=== PATIENT | male | born 1955 | race Caucasian/White ===

== ENCOUNTER → 2016-05-21 | Outpatient (CLI) | payer MEDICAID ==
--- NOTE | 2016-05-21 23:08 | MR ---
EXAMINATION TYPE: MR knee LT wo con DATE OF EXAM: 05/21/2016 6:39 PM COMPARISON: NONE HISTORY: Left knee pain and swelling for 2 - 3weeks TECHNIQUE: Multiplanar, multisequence imaging of the left knee is performed without IV contrast. FINDINGS: There is a pacs-or-fjqrvuiv knee joint effusion. The anterior and posterior cruciate ligaments are in tact. There is subcutaneous edema anterior to the patella and infrapatellar tendon. The collateral li gaments appear intact. There is an oblique tear of the posterior horn medial meniscus extending to the inferior surface. There is increased signal throughout most of the posterior horn of the lateral meniscus related to co mplex tear. There is some thinning of the lateral meniscus. I see no bony destructive process. There is no evidence of a fracture. IMPRESSION: Knee joint effusion. Complex tear of the posterior horn of the lateral meniscus. Oblique tear of the posterior horn medial meniscus. Mild hypertrophic osteoarthritic narrowing of the lateral joint space . No evidence of ligamentous tear. Subcutaneous edema is present anteriorly.
== END | disposition home or self-care (01) ==
LOC: RADMRIMAIN 17:59
PROVIDERS: ATTEND Family Medicine
DX: M23.252 Derangement of posterior horn of lateral meniscus due to old tear or injury, left knee (principal); M23.222 Derangement of posterior horn of medial meniscus due to old tear or injury, left knee; M17.12 Unilateral primary osteoarthritis, left knee

== ENCOUNTER → 2016-06-03 | Outpatient (CLI) | payer MEDICAID ==
--- NOTE | 2016-06-03 15:08 | XR ---
EXAMINATION TYPE: XR chest 2V DATE OF EXAM: 06/03/2016 10:24 AM COMPARISON: Prior chest x-ray 01 August 2015 HISTORY: Pneumoconiosis, asbestos exposure TECHNIQUE: Frontal and lateral views of the chest are obtained. FINDINGS: Calcification along the pleural surface of the left lung base is again noted, there is ass ociated scarring. No evident pneumothorax or pleural effusion. Cardiomediastinal silhouette, pulmonar y vascularity and shravan are stable. There may be a mild spinal curvature. Prominent lung volumes sugge stive of underlying COPD. IMPRESSION: Findings compatible with asbestos related disease.
== END ==
LOC: RADXRMAIN 10:07
PROVIDERS: ATTEND Family Medicine
DX: J61 Pneumoconiosis due to asbestos and other mineral fibers (principal)
CPT/HCPCS: 71020

== ENCOUNTER 2016-10-19 08:17 | Day surgery (SDC) | payer MEDICAID ==
[2016-10-15 11:40] VITALS: BMI 33.2
[~2016-10-19 08:17] MED LIST: LACTATED RINGERS 1,000 ML IV SCH; LIDOCAINE 1% 20 ML VIAL (10MG/ML) FOR IV START INTRADERMA PRN
[2016-10-19 08:30] VITALS: RESP 16; TEMP 97.5
[2016-10-19] MEDS ORDERED: PROPOFOL 10 MG/ML 20 ML VIAL IV ONE (09:21)
--- NOTE | 2016-10-19 10:00 | P.PCN ---
Date of Procedure: 10/19/16 Preoperative Diagnosis: Postoperative Diagnosis: Procedure(s) Performed: Procedures: 1. Esophagogastroduodenoscopy and biopsy. 2. Total colonoscopy. Preoperative diagnosis: Chronic reflux symptoms, family history of colon cancer and personal history of polyps. Postoperative diagnosis: 1. Small sliding hiatal hernia and mild antral gastritis. 2. Colonoscopy within normal limits. Preparation: HalfLytely prep. Sedation: Was provided by anesthesia. Brief clinical history: The patient is a 61-year-old male who is scheduled for this evaluation because of family history of colon cancer in his father and personal history of polyps. The patient has tubular adenoma removed from the sigmoid back in 2008. In addition, the patient has history of chronic reflux. He has no bleeding or other alarm symptoms. Procedure: With the patient on his left lateral decubitus position and after informed consent and adequate sedation, I passed the Olympus-GIF 160 video upper endoscope through the cricopharyngeus down the esophagus. GE junction was around 41 cm from the incisors and there was a small sliding hiatal hernia. The esophagus did not show any obvious erosions, ulcers, strictures or Mayorga 's esophagus. The endoscope was then passed into the stomach which was insufflated with air and inspected in detail including the retroflex view in the cardia. There was minimal mottling and erythema in the antrum but no ulcers or erosions. Pyloric channel, duodenal bulb, post bulbar area and descending duodenum appeared within normal limits. I obtained multiple biopsies from the duodenum, antrum and esophagus then the endoscope was withdrawn and I proceeded with the colonoscopy. Perianal area did not show any fissures or fistulas. There were no masses felt on digital rectal examination. The Olympus CFQ 160L video colonoscope was then inserted in the rectum in the usual fashion and advanced to the cecum. The mucosa appeared healthy. No polyps or tumors were seen or any obvious diverticular disease. I retroflexed the endoscope in the rectum before the endoscope was withdrawn. Low-grade internal hemorrhoids were noted but there was no evidence of bleeding. The patient tolerated the procedure well. Plan: The patient was reassured. Will await biopsy results. He will follow up with you as planned and I recommended repeat colonoscopy in 5 years. Implants: Indications for Procedure: Operative Findings: Description of Procedure:
[2016-10-19 10:10] VITALS: BP 124/77; PULSE 60
== END 2016-10-19 11:06 | disposition home or self-care (01) ==
LOC: ORWHC2ENDO 08:17
DX: K21.0 Gastro-esophageal reflux disease with esophagitis (principal); K29.50 Unspecified chronic gastritis without bleeding; Z12.11 Encounter for screening for malignant neoplasm of colon; Z86.010 Personal history of colon polyps; Z80.0 Family history of malignant neoplasm of digestive organs; K44.9 Diaphragmatic hernia without obstruction or gangrene; K64.8 Other hemorrhoids; J44.9 Chronic obstructive pulmonary disease, unspecified; Z79.51 Long term (current) use of inhaled steroids; Z79.899 Other long term (current) drug therapy
CPT/HCPCS: 88305; 88342; 43239; J2704; G0121

== ENCOUNTER 2016-11-18 19:28 | Inpatient (IN) | payer MEDICAID ==
[2016-11-18] MEDS ORDERED: LEVOFLOXACIN 750 MG TAB PO STA (19:51)
[2016-11-18] MEDS ORDERED: SODIUM CHLORIDE 0.9% 1,000 ML IV STA ×2 (19:51)
[2016-11-18] MEDS ORDERED: methylPREDNISolone SOD SUCCI 125 MG/2 ML VIAL IV STA (19:51)
[2016-11-18] MEDS ORDERED: cefTRIAXone 2,000 MG in SODIUM CHLORIDE 0.9% 100 ML IVPB STA (19:55)
[2016-11-18 20:27] LABS: Basophils % (A) 0 %; CH 30.3; CHCM 34.1; Eosinophils # (A) 0.2 k/uL (0-0.7); Eosinophils % (A) 1 %; HCT 43.9 % (39.0-53.0); HDW 2.25; HGB 15.1 gm/dL (13.0-17.5); Luc # (Auto) 0.13; Luc % (Auto) 1; Lymphocytes # (A) 0.8 k/uL (1.0-4.8); Lymphocytes % (A) 5 %; MCH 30.8 pg (25.0-35.0); MCHC 34.4 g/dL (31.0-37.0); MCV 89.3 fL (80.0-100.0); Mean Platelet Volume 7.6; Monocytes # (A) 0.7 k/uL (0-1.0); Monocytes % (A) 4 %; Neutrophils # (A) 14.7 k/uL (1.3-7.7); Neutrophils % (A) 89 %; RBC 4.91 m/uL (4.30-5.90); RDW 13.7 % (11.5-15.5); WBC 16.5 k/uL (3.8-10.6); WBC (Perox) 15.94
[2016-11-18 20:39] LABS: ALT 30 U/L (21-72); AST 27 U/L (17-59); Alkaline Phosphatase 61 U/L (38-126); Anion Gap 11 mmol/L; Blood Urea Nitrogen 14 mg/dL (9-20); Calcium 9.3 mg/dL (8.4-10.2); Carbon Dioxide 20 mmol/L (22-30); Chloride 104 mmol/L (98-107); Glucose 102 mg/dL (74-99); Non-African American GFR(MDRD) >60 (>60 ml/min/1.73 sqM); Potassium 4.1 mmol/L (3.5-5.1); Sodium 135 mmol/L (137-145); Total Bilirubin 0.6 mg/dL (0.2-1.3); Total Protein 7.5 g/dL (6.3-8.2)
--- NOTE | 2016-11-18 20:39 | XR ---
EXAMINATION TYPE: XR chest 2V DATE OF EXAM: 11/18/2016 COMPARISON: 06/03/2016 HISTORY: Fever TECHNIQUE: Frontal and lateral views of the chest are obtained. FINDINGS: There is some calcified pleural plaque at the left lung base. There is mild linear density in the left lower lobe. Heart size is normal. There is no heart failure. Bony thorax is intact. IMPRESSION: Pleural and pulmonary scarring in the left lower lobe. Calcified pleural plaque. No acut e lung disease. No change compared to old exam. Normal heart.
[2016-11-18 20:56] LABS: Creatine Kinase 90 U/L (55-170)
[2016-11-18 21:09] LABS: Creatine Kinase MB 1.8 ng/mL (0.0-2.4); Troponin I <0.012 ng/mL (0.000-0.034)
--- NOTE | 2016-11-18 21:25 | ED ---
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 he does have a history of COPD denies any chest pain no pleuritic chest pain he has been coughing and has been coughing up some phlegm denies any history of coronary artery disease area denies any headaches no neck stiffness no abdominal pain no frequency urgency dysuria - Related Data Home Medications Medication Instructions Recorded Confirmed Garlic 1 tab PO DAILY 10/12/14 11/18/16 Lansoprazole 30 mg PO DAILY 10/12/14 11/18/16 [place]-3 Fatty Acids [[place]-3] 1,000 mg PO DAILY 10/12/14 11/18/16 Budesonide/Formoterol Fumarate 2 puff INHALATION RT-BID 06/14/15 11/18/16 [Symbicort 80-4.5 Mcg Inhaler] Celecoxib [CeleBREX] 200 mg PO DAILY PRN 10/15/16 11/18/16 L.acidoph,Paracasei, B.lactis 1 cap PO DAILY 11/18/16 11/18/16 [Probiotic] Loratadine [Claritin] 10 mg PO DAILY 11/18/16 11/18/16 Multivitamins, Thera [Multivitamin 1 tab PO DAILY 11/18/16 11/18/16 (formulary)] Allergies Allergy/AdvReac Type Severity Reaction Status Date / Time No Known Allergies Allergy Verified 11/18/16 19:38 Review of Systems ROS Statement: Those systems with pertinent positive or pertinent negative responses have been documented in the HPI. ROS Other: All systems not noted in ROS Statement are negative. Past Medical History Past Medical History: COPD, GERD/Reflux, Osteoarthritis (OA) Additional Past Medical History / Comment(s): NUMEROUS BOWEL OBSTRUCTIONS, ileus , diverticular disease, UTI, asbestoes exposure. HX OF POLYPS History of Any Multi-Drug Resistant Organisms: None Reported Past Surgical History: Back Surgery, Bowel Resection, Cholecystectomy, Orthopedic Surgery, Tonsillectomy Additional Past Surgical History / Comment(s): COLONOSCOPY, EGD, BOWEL RESECTIONS IN 2013- LYSIS OF ADHESIONS-05/09/14, had spinal stenosis, had fusion done, R knee arthroscopy for torn meniscus. Past Anesthesia/Blood Transfusion Reactions: No Reported Reaction Past Psychological History: No Psychological Hx Reported Smoking Status: Former smoker - Past Family History Father Family Medical History: Cancer Additional Family Medical History / Comment(s): at age 64- colon cancer Mother Family Medical History: Hyperlipidemia, Hypertension Additional Family Medical History / Comment(s): Mother at age 78 General Exam - General Exam Comments Initial Comments: General: The patient is awake and alert, in no distress, and does not appear acutely ill. Skin: Skin is warm and dry and no rashes or lesions are noted. Eye: Pupils are equal, round and reactive to light, extra-ocular movements are intact; there is normal conjunctiva bilaterally. Ears, nose, mouth and throat: There are moist mucous membranes and no oral lesions. Neck: The neck is supple, there is no tenderness or JVD. Cardiovascular: There is a regular rate and rhythm. No murmur, rub or gallop is appreciated. Respiratory: To auscultation bilateral, exam consistent with her typical COPD Gastrointestinal: Tender over the right flank area Back: There is no tenderness to palpation in the midline. There is no obvious deformity. Musculoskeletal: Normal ROM, no tenderness, There is no pedal edema. There is no calf tenderness or swelling. No cords were appreciated. Neurological: CN II-XII intact, Cranial nerves III through XII are intact. There are no obvious motor or sensory deficits. Coordination appears grossly intact. Speech is normal. Psychiatric: Cooperative, appropriate mood & affect, normal judgment. Limitations: no limitations Course Vital Signs 11/18/16 11/18/16 19:35 21:08 Temperature 101.6 F H 100.8 F H Pulse Rate 109 H 109 H Respiratory 20 Rate Blood Pressure 125/76 O2 Sat by Pulse 96 95 Oximetry EKG is a sinus tachycardia heart rate is 108 KS interval is 170 QRS duration is 05/17/2011 QT/QTc is 326/436 review of this EKG does not reveal any ST elevation or ST depression - Reevaluation(s) Reevaluation #1: 11/18/16 22:33 Mitch is reassessed at 10:20 PM, he still has headache and neck does not feel well enough to go home there is a question of 400 pneumonia or sepsis history bit tachycardic and can admit him , will continue the antibiotics till blood culture and urine culture is 1 Medical Decision Making - Lab Data Result diagrams: 11/18/16 20:15 11/18/16 20:15 Lab Results 11/18/16 11/18/16 11/18/16 Range/Units 20:15 20:15 20:15 WBC 16.5 H (3.8-10.6) k/uL RBC 4.91 (4.30-5.90) m/uL Hgb 15.1 (13.0-17.5) gm/dL Hct 43.9 (39.0-53.0) % MCV 89.3 (80.0-100.0) fL MCH 30.8 (25.0-35.0) pg MCHC 34.4 (31.0-37.0) g/dL RDW 13.7 (11.5-15.5) % Plt Count 311 (150-450) k/uL Neutrophils % 89 % Lymphocytes % 5 % Monocytes % 4 % Eosinophils % 1 % Basophils % 0 % Neutrophils # 14.7 H (1.3-7.7) k/uL Lymphocytes # 0.8 L (1.0-4.8) k/uL Monocytes # 0.7 (0-1.0) k/uL Eosinophils # 0.2 (0-0.7) k/uL Basophils # 0.0 (0-0.2) k/uL PT (9.0-12.0) sec INR (<1.1) APTT (22.0-30.0) sec D-Dimer (<0.60) mg/L FEU Sodium 135 L (137-145) mmol/L Potassium 4.1 (3.5-5.1) mmol/L Chloride 104 (98-107) mmol/L Carbon Dioxide 20 L (22-30) mmol/L Anion Gap 11 mmol/L BUN 14 (9-20) mg/dL Creatinine 0.92 (0.66-1.25) mg/dL Est GFR (MDRD) Af Amer >60 (>60 ml/min/1.73 sqM) Est GFR (MDRD) Non-Af >60 (>60 ml/min/1.73 sqM) Glucose 102 H (74-99) mg/dL Calcium 9.3 (8.4-10.2) mg/dL Total Bilirubin 0.6 (0.2-1.3) mg/dL AST 27 (17-59) U/L ALT 30 (21-72) U/L Alkaline Phosphatase 61 (38-126) U/L Total Creatine Kinase 90 (55-170) U/L CK-MB (CK-2) 1.8 (0.0-2.4) ng/mL CK-MB (CK-2) Rel Index 2.0 Troponin I <0.012 (0.000-0.034) ng/mL NT-Pro-B Natriuret Pep pg/mL Total Protein 7.5 (6.3-8.2) g/dL Albumin 4.4 (3.5-5.0) g/dL Urine Color Urine Appearance (Clear) Urine pH (5.0-8.0) Ur Specific [place] (1.001-1.035) Urine Protein (Negative) Urine Glucose (UA) (Negative) Urine Ketones (Negative) Urine Blood (Negative) Urine Nitrite (Negative) Urine Bilirubin (Negative) Urine Urobilinogen (<2.0) mg/dL Ur Leukocyte Esterase (Negative) Urine RBC (0-5) /hpf Urine Mucus (None) /hpf 11/18/16 11/18/16 11/18/16 Range/Units 20:15 21:35 21:44 WBC (3.8-10.6) k/uL RBC (4.30-5.90) m/uL Hgb (13.0-17.5) gm/dL Hct (39.0-53.0) % MCV (80.0-100.0) fL MCH (25.0-35.0) pg MCHC (31.0-37.0) g/dL RDW (11.5-15.5) % Plt Count (150-450) k/uL Neutrophils % % Lymphocytes % % Monocytes % % Eosinophils % % Basophils % % Neutrophils # (1.3-7.7) k/uL Lymphocytes # (1.0-4.8) k/uL Monocytes # (0-1.0) k/uL Eosinophils # (0-0.7) k/uL Basophils # (0-0.2) k/uL PT 10.4 (9.0-12.0) sec INR 1.0 (<1.1) APTT 25.8 (22.0-30.0) sec D-Dimer 0.75 H (<0.60) mg/L FEU Sodium (137-145) mmol/L Potassium (3.5-5.1) mmol/L Chloride (98-107) mmol/L Carbon Dioxide (22-30) mmol/L Anion Gap mmol/L BUN (9-20) mg/dL Creatinine (0.66-1.25) mg/dL Est GFR (MDRD) Af Amer (>60 ml/min/1.73 sqM) Est GFR (MDRD) Non-Af (>60 ml/min/1.73 sqM) Glucose (74-99) mg/dL Calcium (8.4-10.2) mg/dL Total Bilirubin (0.2-1.3) mg/dL AST (17-59) U/L ALT (21-72) U/L Alkaline Phosphatase (38-126) U/L Total Creatine Kinase (55-170) U/L CK-MB (CK-2) (0.0-2.4) ng/mL CK-MB (CK-2) Rel Index Troponin I (0.000-0.034) ng/mL NT-Pro-B Natriuret Pep 90 pg/mL Total Protein (6.3-8.2) g/dL Albumin (3.5-5.0) g/dL Urine Color Light Yellow Urine Appearance Clear (Clear) Urine pH 5.0 (5.0-8.0) Ur Specific [place] 1.008 (1.001-1.035) Urine Protein Negative (Negative) Urine Glucose (UA) Negative (Negative) Urine Ketones Negative (Negative) Urine Blood Trace H (Negative) Urine Nitrite Negative (Negative) Urine Bilirubin Negative (Negative) Urine Urobilinogen <2.0 (<2.0) mg/dL Ur Leukocyte Esterase Negative (Negative) Urine RBC <1 (0-5) /hpf Urine Mucus Rare H (None) /hpf Disposition Clinical Impression: Fever, Dyspnea, Right flank pain, Sepsis Disposition: ADMITTED IP TO THIS [facility] Condition: Good Referrals: Uriel Pendleton MD [Primary Care Provider] - 1-2 days
[2016-11-18] MEDS ORDERED: KETOROLAC 30 MG/ML 1 ML VIAL IVP STA (22:02)
[2016-11-18 22:03] LABS: Appearance,Urine Clear (Clear); Bilirubin,Urine Negative (Negative); Glucose,Urine (UA) Negative (Negative); Ketones,Urine Negative (Negative); Leukocyte Esterase,Urine Negative (Negative); Mucus,Urine Rare /hpf; Nitrite,Urine Negative (Negative); Particle Count 719; Protein,Urine Negative (Negative); RBC,Urine <1 /hpf (0-5); Specific Gravity,Urine 1.008 (1.001-1.035); UA Billing (MACRO vs. MICRO) MICRO; Urobilinogen,Urine <2.0 mg/dL (<2.0)
[2016-11-18 22:07] LABS: Partial Thromboplastin Time 25.8 sec (22.0-30.0); Prothrombin Time 10.4 sec (9.0-12.0)
[2016-11-18] MEDS ORDERED: RX INFO: IV CONTRAST WAS GIVEN 1 EACH MISC MISCELLANE PRN (22:36)
--- NOTE | 2016-11-18 23:46 | CT ---
EXAM: CT Angiography Chest With Intravenous Contrast CLINICAL HISTORY: Reason: Pain TECHNIQUE: Axial computed tomographic angiography images of the chest with intravenous contrast using pulmonary embolism protocol. CTDI is 43.80 mGy and DLP is 405.80 mGy-cm. This CT exam was performed using one or more of the following dose reduction techniques: automated exposure control, adjustment of the mA and/or kV according to patient size, and/or use of iterative reconstruction technique. MIP reconstructed images were created and reviewed. COMPARISON: 06/14/[address] FINDINGS: Limitations: Note somewhat suboptimal contrast bolus, with similar degree of opacity within the pulmonary and systemic arterial systems. Pulmonary arteries: No definite evidence of pulmonary embolism including no central or segmental PE seen. Aorta: No acute findings. No thoracic aortic aneurysm. Lungs: Stable left-sided pleural calcifications, and underlying linear opacities suggesting atelectasis and scarring seen at the left base. There are a few small peripheral blebs in the apices. Tiny calcified granulomata are seen at the right base. Pleural space: See above. Heart: Coronary atherosclerotic calcification. No significant pericardial effusion. Mediastinum: Small hiatal hernia. Bones/joints: Degenerative changes and slight rightward curvature of the thoracic spine. Soft tissues: Unremarkable. Lymph nodes: Scattered small mediastinal and bilateral hilar nodes, including slightly prominent right hilar nodes measuring up to 13 mm in short axis diameter on image 74. Gallbladder and bile ducts: Prior cholecystectomy. IMPRESSION: 1. No definite evidence of pulmonary embolism or acute process seen within the chest. 2. Slightly prominent right hilar node or nodes, nonspecific. If no priors for comparison, at the minimum would recommend repeat exam within 2-3 months to reevaluate. 3. There is again left-sided pleural calcification and underlying scarring, stable, perhaps as the result of prior hemo- or pyothorax. 4. Atherosclerotic disease includes coronary artery calcifications.
[2016-11-19] MEDS ORDERED: SODIUM CHLORIDE 0.9% 1,000 ML IV ONE (00:11)
[2016-11-19] MEDS ORDERED: MELOXICAM 7.5 MG TAB PO PRN (00:13)
[2016-11-19 01:11] VITALS: BMI 32.8
[2016-11-19] MEDS: SYMBICORT 80-4.5 MCG INHALER INHALATION SCH ×2 (07:30→20:16)
[2016-11-19] MEDS: PANTOPRAZOLE 40 MG TABLET PO SCH (07:59)
[2016-11-19] MEDS: LORATADINE 10 MG TAB PO SCH (07:59)
[2016-11-19 14:19] LABS: Basophils % (A) 0 %; CH 29.7; CHCM 33.3; Eosinophils % (A) 0 %; HCT 41.4 % (39.0-53.0); HDW 2.29; HGB 14.2 gm/dL (13.0-17.5); Luc # (Auto) 0.17; Luc % (Auto) 1; Lymphocytes % (A) 6 %; MCH 30.8 pg (25.0-35.0); MCHC 34.3 g/dL (31.0-37.0); MCV 89.8 fL (80.0-100.0); Mean Platelet Volume 7.6; Monocytes # (A) 0.9 k/uL (0-1.0); Monocytes % (A) 6 %; Neutrophils # (A) 14.8 k/uL (1.3-7.7); Neutrophils % (A) 87 %; RBC 4.61 m/uL (4.30-5.90); RDW 13.7 % (11.5-15.5); WBC 16.9 k/uL (3.8-10.6); WBC (Perox) 16.92
[2016-11-19 14:28] LABS: Anion Gap 12 mmol/L; Blood Urea Nitrogen 13 mg/dL (9-20); Calcium 9.3 mg/dL (8.4-10.2); Carbon Dioxide 19 mmol/L (22-30); Chloride 111 mmol/L (98-107); Glucose 112 mg/dL (74-99); Non-African American GFR(MDRD) >60 (>60 ml/min/1.73 sqM); Potassium 4.4 mmol/L (3.5-5.1); Sodium 142 mmol/L (137-145)
[2016-11-19 15:20] LABS: Appearance,Urine Clear (Clear); Bilirubin,Urine Negative (Negative); Glucose,Urine (UA) Negative (Negative); Ketones,Urine Negative (Negative); Leukocyte Esterase,Urine Negative (Negative); Nitrite,Urine Negative (Negative); Protein,Urine Negative (Negative); Specific Gravity,Urine 1.003 (1.001-1.035); UA Billing (MACRO vs. MICRO) CHEM; Urobilinogen,Urine <2.0 mg/dL (<2.0)
[2016-11-19] MEDS: SODIUM CHLORIDE 0.9% 1,000 ML IV SCH ×2 (16:16→21:38)
[2016-11-19] MEDS ORDERED: LEVOFLOXACIN 750 MG TAB PO SCH (21:00)
[2016-11-19] MEDS ORDERED: LEVOFLOXACIN 750MG-D5W PMX 750 MG in DEXTROSE/WATER 1 150ML.BAG IVPB SCH (21:00)
[2016-11-20] MEDS: SODIUM CHLORIDE 0.9% 1,000 ML IV SCH (04:31)
[2016-11-20 07:24] VITALS: BP 112/69; PULSE 66; RESP 18; TEMP 96.5
[2016-11-20] MEDS: SYMBICORT 80-4.5 MCG INHALER INHALATION SCH (07:45)
[2016-11-20 08:17] LABS: Basophils % (A) 0 %; CH 29.4; CHCM 32.6; Eosinophils # (A) 0.1 k/uL (0-0.7); Eosinophils % (A) 1 %; HCT 42.9 % (39.0-53.0); HDW 2.38; HGB 14.1 gm/dL (13.0-17.5); Luc # (Auto) 0.21; Luc % (Auto) 2; Lymphocytes # (A) 1.7 k/uL (1.0-4.8); Lymphocytes % (A) 16 %; MCH 29.8 pg (25.0-35.0); MCHC 32.8 g/dL (31.0-37.0); MCV 90.7 fL (80.0-100.0); Mean Platelet Volume 7.3; Monocytes # (A) 0.7 k/uL (0-1.0); Monocytes % (A) 7 %; Neutrophils # (A) 7.9 k/uL (1.3-7.7); Neutrophils % (A) 74 %; RBC 4.73 m/uL (4.30-5.90); RDW 13.8 % (11.5-15.5); WBC 10.7 k/uL (3.8-10.6); WBC (Perox) 10.99
[2016-11-20 08:25] LABS: Anion Gap 9 mmol/L; Blood Urea Nitrogen 13 mg/dL (9-20); Calcium 8.9 mg/dL (8.4-10.2); Carbon Dioxide 22 mmol/L (22-30); Chloride 111 mmol/L (98-107); Glucose 83 mg/dL (74-99); Non-African American GFR(MDRD) >60 (>60 ml/min/1.73 sqM); Potassium 4.3 mmol/L (3.5-5.1); Sodium 142 mmol/L (137-145)
[2016-11-20] MEDS: LORATADINE 10 MG TAB PO SCH (10:04)
[2016-11-20] MEDS: PANTOPRAZOLE 40 MG TABLET PO SCH (10:05)
--- NOTE | 2016-11-20 12:11 | HP ---
DATE OF SERVICE: 11/19/2016 The chief complaints are shortness of breath as well as nausea and chills. HISTORY OF PRESENT ILLNESS: This is a 61-year-old gentleman with a past medical history of multiple medical problems including COPD, history of GERD, history of numerous bowel obstructions , history of back surgery being followed by Dr. Uriel Pendleton. The patient has been having chills, short of breath, tired and weak. The patient came to [facility] for further evaluation. The white count is elevated. Sepsis is suspected. Cultures were obtained. Broad spectrum antibiotic is initiated. There is no history of headache, loss of consciousness,. PAST MEDICAL HISTORY: History of COPD, GERD, DJD, numerous bowel obstructions. Medications prior to admission: 1. [place] 3 one thousand daily. 2. Multivitamin 1 p.o. daily. 3. Claritin 10 mg daily. 4. Lansoprazole 30 mg daily. 5. Probiotic. 6. Celebrex 200 mg daily p.r.n. 7. Symbicort 80/4.5 two puffs b.i.d. Allergies are none. FAMILY HISTORY: History of cancer. SOCIAL HISTORY: Previous history of smoking, no history of alcohol intake. REVIEW OF SYSTEMS: ENT: No diminished hearing, diminished vision. CARDIOVASCULAR: No angina, no palpitation. RESPIRATORY: No cough. GI: No nausea. : No dysuria. NERVOUS SYSTEM: No numbness or weakness. ALLERGY/IMMUNOLOGY: No asthma or hayfever. MUSCULOSKELETAL: As mentioned earlier. DERMATOLOGY: Negative. ENDOCRINE: No history of diabetes or hypothyroidism. CONSTITUTIONAL: As mentioned earlier. RHEUMATOLOGY: Negative. PSYCHIATRY: As mentioned earlier. PHYSICAL EXAM: Patient is alert and oriented x3. Pulse is 71, blood pressure 104/71, respirations 16, temperature 97.3, pulse ox 94% on room air. HEENT: Conjunctivae normal. NECK: No jugular venous distension. CARDIOVASCULAR: S1, S2, muffled. RESPIRATORY: Breath sounds diminished at the bases, bilateral scattered rhonchi , no crackles. ABDOMEN: Soft, nontender. LEGS: No edema, no swelling. NERVOUS SYSTEM: No focal deficits. Labs are WBC 16.5, hemoglobin is 15.1, sodium 135. ASSESSMENT: 1. Chronic obstructive pulmonary disease acute exacerbation with acute purulent tracheobronchitis with rule out sepsis. 2. Increased WBC. 3. Hyponatremia. RECOMMENDATION: In this 61-year-old gentleman who presented with multiple medical problems, will monitor the patient closely. Will continue broad- spectrum antibiotics and also I would recommend blood cultures, bronchodilators. Resume the home medications. Prognosis guarded, further recommendations to follow. See orders for further details. Will start plasma lactic acid as well. MTDD
--- NOTE | 2016-11-22 14:14 | DS ---
FINAL DIAGNOSES: 1. Chronic obstructive pulmonary disease acute exacerbation, acute purulent tracheobronchitis. 2. Sepsis ruled out. 3. Increased WBC. 4. Hyponatremia. DISCHARGE DISPOSITION: The patient is being discharged in stable condition with guarded prognosis. HISTORY OF PRESENT ILLNESS: This 61 year old gentleman with past medical history of multiple medical problems presented with shortness of breath and chills. The patient on empiric antibiotics, improved significantly. White count elevated initially 16.9, improved to 10.7. Cultures are negative so far. On examination, vital signs are stable. Cardiovascular: S1, S2. Respiratory: A few rhonchi. Nervous system: No focal deficits. DISCHARGE ADVICE AND MEDICATIONS: 1. Discharge diet is cardiac. 2. Activity limited until follow up. 3. Follow up with Dr. Uriel Pendleton in two to three days. 4. Symbicort two puffs b.i.d. 5. Celebrex 200 mg daily. 6. Garlic daily. 7. Probiotic daily. 8. Lansoprazole 30 mg po daily. 9. Levaquin 750 po daily for four days. 10. Claritin 10 mg daily. 11. Multivitamins one po daily. 12. [place]-3 fatty acids daily. Once again, the patient is being discharged in stable condition with guarded prognosis. MTDD
== END 2016-11-20 13:59 | disposition home or self-care (01) | DRG 191 ==
LOC: EC 19:28 → 4MS4W 11-19 00:11 → OBSVTOIN 11-19 15:01
PROVIDERS: ADMIT Hospitalist; ATTEND Hospitalist
DX: J44.0 Chronic obstructive pulmonary disease with (acute) lower respiratory infection (principal); E87.1 Hypo-osmolality and hyponatremia; J20.9 Acute bronchitis, unspecified; J44.1 Chronic obstructive pulmonary disease with (acute) exacerbation; K21.9 Gastro-esophageal reflux disease without esophagitis; M19.91 Primary osteoarthritis, unspecified site; Z87.891 Personal history of nicotine dependence; Z79.51 Long term (current) use of inhaled steroids; Z79.899 Other long term (current) drug therapy
CPT/HCPCS: 36415; 71020; 71275; 80048; 80053; 81001; 81003; 82550; 82553; 83605; 83880; 84484; 85025; 85379; 85610; 85730; 87040; 87070; 87086; 93005; 94640; 96361; 96365; 96375; 99285

== ENCOUNTER → 2016-11-23 | Outpatient (CLI) | payer MEDICAID ==
[2016-11-23 11:57] LABS: Anion Gap 10 mmol/L; Blood Urea Nitrogen 17 mg/dL (9-20); Calcium 9.3 mg/dL (8.4-10.2); Carbon Dioxide 23 mmol/L (22-30); Chloride 105 mmol/L (98-107); Glucose 92 mg/dL (74-99); Non-African American GFR(MDRD) >60 (>60 ml/min/1.73 sqM); Potassium 4.4 mmol/L (3.5-5.1); Sodium 138 mmol/L (137-145)
[2016-11-23 12:03] LABS: Basophils % (A) 0 %; CH 29.4; CHCM 33.4; Eosinophils # (A) 0.2 k/uL (0-0.7); Eosinophils % (A) 3 %; HDW 2.37; HGB 14.9 gm/dL (13.0-17.5); Luc # (Auto) 0.29; Luc % (Auto) 3; Lymphocytes # (A) 2.4 k/uL (1.0-4.8); Lymphocytes % (A) 28 %; MCH 30.7 pg (25.0-35.0); MCHC 34.7 g/dL (31.0-37.0); MCV 88.6 fL (80.0-100.0); Mean Platelet Volume 7.6; Monocytes # (A) 0.6 k/uL (0-1.0); Monocytes % (A) 6 %; Neutrophils # (A) 5.2 k/uL (1.3-7.7); Neutrophils % (A) 60 %; RBC 4.86 m/uL (4.30-5.90); RDW 13.3 % (11.5-15.5); WBC 8.8 k/uL (3.8-10.6); WBC (Perox) 8.71
== END | disposition home or self-care (01) ==
LOC: LABWHC1 10:55
PROVIDERS: ATTEND Hospitalist
DX: D72.829 Elevated white blood cell count, unspecified (principal)
CPT/HCPCS: 36415; 80048; 85025

== ENCOUNTER → 2017-05-19 | Outpatient (CLI) | payer MEDICAID ==
--- NOTE | 2017-05-19 12:20 | XR ---
EXAMINATION TYPE: XR chest 2V DATE OF EXAM: 05/19/2017 COMPARISON: 11/18/2016 TECHNIQUE: PA and lateral views submitted. HISTORY: difficulty breathing FINDINGS: There is some calcified pleural plaque at the left lung base. There is mild linear density in the lef t lower lobe. Heart size is normal. There is no heart failure. Bony thorax is intact. Arthropathy of the shoulders and degenerative changes of the spine. IMPRESSION: Pleural and pulmonary scarring in the left lower lobe. Calcified pleural plaque. Correlate for asbest osis related disease. No change compared to old exam.
== END | disposition home or self-care (01) ==
LOC: RADXRMAIN 11:57
PROVIDERS: ATTEND Family Medicine
DX: J92.0 Pleural plaque with presence of asbestos (principal); J98.4 Other disorders of lung
CPT/HCPCS: 71046

== ENCOUNTER 2017-06-29 09:50 | Inpatient (IN) | payer MEDICAID ==
[2017-06-21 10:45] VITALS: BMI 32.0
[~2017-06-29 09:50] MED LIST changes: +ACETAMINOPHEN TAB 500 MG TAB PO ONE; +DEXAMETHASONE SOD PHOSPHATE 10 MG/ML 1 ML VIAL IV ONE; -LACTATED RINGERS 1,000 ML IV SCH; -LIDOCAINE 1% 20 ML VIAL (10MG/ML) FOR IV START INTRADERMA PRN; +MELOXICAM 7.5 MG TAB PO ONE; +MIDAZOLAM 2 MG/2 ML VIAL IV PRN; +MORPHINE SULFATE 4 MG/ML SYRINGE IV PRN; +ONDANSETRON 4 MG/2 ML VIAL IVP ONE; +ROPIVACAINE 246.25 MG, EPINEPHrine 0.5 MG, KETOROLAC 30 MG, cloNIDine HCL/PF 80 MCG, WA... MISCELLANE ONE; +SCOPOLAMINE 1.5MG/72HR PATCH TRANSDERM ONE; +TRANEXAMIC ACID 1,000 MG in SODIUM CHLORIDE 0.9% 50 ML IVPB ONE; +ceFAZolin IN SWFI 2 GM/20 ML SYRINGE IVP ONE
[2017-06-29] MEDS ORDERED: LIDOCAINE 1% 20 ML VIAL (10MG/ML) FOR IV START INTRADERMA ONE (12:35)
[2017-06-29] MEDS: LACTATED RINGERS 1,000 ML IV SCH (12:45)
[2017-06-29] MEDS ORDERED: ROPIVACAINE 1,100 MG, SODIUM CHLORIDE 0.9% 330 ML MISCELLANE PRN ×2 (13:52)
--- NOTE | 2017-06-29 13:53 | P.ONQ ---
Anesthesiology Proc Note - PNB - Peripheral Nerve Block Performed Left Adductor Canal Indication: Acute Post-Operative Pain, Requested by physician (Osito Palmer) Sedation Type: Sedate with meaningful contact maintained Preparation: Sterile Dressing Position: Supine Catheter: Indwelling Needle Types: Other (see comment) (Jey) Needle Size: 100mm (4") Needle Gauge: 18 Technique: Ultrasound Injectate: 0.5% Ropivacaine (see comment for volume) (20cc) Blood Aspirated: No Pain Paresthesia on Injection Noted: No Resistance on Injection: Normal Events: Uneventful and Well Tolerated
[2017-06-29] MEDS ORDERED: fentaNYL (PF) 50 MCG/ML 2 ML AMP ONE (14:16)
[2017-06-29] MEDS ORDERED: SUCCINYLCHOLINE CHLORIDE 100 MG/5 ML SYR IV ONE (14:16)
[2017-06-29] MEDS ORDERED: SODIUM CHLORIDE 0.9% 100 ML BAG ONE (14:16)
[2017-06-29] MEDS ORDERED: HYDROmorphone (PF) 1 MG/ML ONE (14:16)
[2017-06-29] MEDS ORDERED: ROPIVACAINE 5 MG/ML 30 ML VIAL ONE (14:16)
[2017-06-29] MEDS ORDERED: TRANEXAMIC ACID 1,000 MG/10 ML VIAL ONE (14:16)
[2017-06-29] MEDS ORDERED: LIDOCAINE 2%-EPI 1:100,000 20 ML VIAL ONE (14:16)
[2017-06-29] MEDS ORDERED: KETAMINE 10 MG/ML 20 ML VIAL ONE (14:16)
[2017-06-29] MEDS ORDERED: PROPOFOL 10 MG/ML 20 ML VIAL IV ONE (14:16)
[2017-06-29] MEDS ORDERED: MIDAZOLAM 2 MG/2 ML VIAL ONE (14:16)
[2017-06-29] MEDS ORDERED: ceFAZolin 1,000 MG in SODIUM CHLORIDE 0.9% 1,000 ML IRRIGATION ONE ×4 (15:11)
[2017-06-29] MEDS ORDERED: LACTATED RINGERS 1,000 ML IV ONE (15:55)
--- NOTE | 2017-06-29 15:55 | P.OP ---
Date of Procedure: 06/29/17 Preoperative Diagnosis: Severe osteoarthritis left knee Postoperative Diagnosis: Severe osteoarthritis left knee Procedure(s) Performed: Left total knee arthroplasty Implants: Rodriguez and Nephew Oxinium femoral component size 7, left Rodriguez & Nephew Darlyn II left nonporous tibial baseplate size 6 Rodriguez & Nephew size 11 mm Legion XLPE high flexion articular insert, size 5-6 Rodriguez & Nephew Darlyn II resurfacing patellar component, 35 mm All components were cemented using Nena bone cement.. The articulation is Oxinium on polyethylene. Anesthesia: GETA Surgeon: Osito Palmer Manager Agricultural #1: Sushma Peres Estimated Blood Loss (ml): 50 Pathology: other (Bone and cartilage) Condition: stable Disposition: PACU Indications for Procedure: After failure of conservative treatment we discussed the surgical and nonsurgical treatment options at length. Patient wishes to proceed with a total knee arthroplasty. Complications specific to this procedure were discussed at length, including but not limited to infection, bleeding, stiffness , and nerve injury. Patient is aware of all these complications and informed consent was obtained Operative Findings: The operative findings are consistent with severe osteoarthritis of the left knee Description of Procedure: Patient was seen in the preoperative area consent was reviewed and operative site was marked with a skin marker. An adductor canal pain catheter was placed by anesthesia in the preoperative area. Patient was then brought to the operating room and given preoperative antibiotics intravenously. A spinal anesthetic was attempted by the anesthesia department, but was unsuccessful. A general anesthetic was then administered.. A tourniquet was placed on the upper thigh and the lower extremity was prepped and draped in usual sterile fashion. A gram of transexamic acid was given. A universal timeout was then performed which confirmed the patient's name, surgical site, ALLERGIES, and consent. The lower extremity was then exsanguinated and tourniquet was inflated to 250 mmHg. A standard and anterior midline approach to the knee was performed. The skin and subcutaneous tissue was dissected down to the patellar tendon. A medial parapatellar arthrotomy was then performed. The knee was then extended, the patellar was everted, and the knee was again flexed. Anterior horns of both menisci were excised, and a release was performed to the posterior medial aspect of the knee. On gross visual inspection, there was complete loss of articular cartilage in the medial and patellofemoral joint spaces. There was also significant cartilage damage in the lateral compartment. There were multiple periarticular osteophytes which were then removed with a Ronguer. The femoral canal was then opened with the appropriate drill, and the intramedullary femoral cutting guide was then placed and set for 4 of valgus. The distal femoral cutting block was then pinned in place, and the distal femur was then cut. The cutting block was then removed and the cut was checked for flatness. Next, the sizing guide was then placed and set for 3 external rotation based off of the epicondylar axis and Whitesides line. After the femur was sized, the appropriate 4-in-1 cutting block was then pinned in place. The anterior condyles were cut without notching. The posterior and chamfer cuts were performed while protecting the collateral ligaments. The cutting block was then removed, and the femoral canal was plugged with autologous bone. Attention was then directed to the tibia. The remaining ACL was removed with a Ronguer, and the tibia was then gently subluxed forward with a large bent knee retractor. Any remaining menisci was excised. The posterior lateral corner was cauterized in order to cauterize the lateral geniculate artery. The extra medullary tibial cutting guide was then placed, set for the appropriate rotation , slope, and depth of resection. The proximal tibia cutting guide was then pinned in place. Proximal tibia was then cut and sized. Next trials were then placed with the appropriate-sized insert. The knee was able to fully extend and flex to 130 and was stable throughout all range of motion. The knee was then extended, patella everted. Patella was then measured, and then using an osteotomy guide, the patella was cut at the appropriate level. The patella was then measured and drilled and the patella trial was then placed. The knee was then taken through range of motion with the patella trial and the patella tracked normally. The knee was then extended patella trial was then removed and the patella was everted. Knee was then flexed and lug holes were drilled through the femoral trial and the femoral trial was then removed. The tibial was then exposed, and the tibial broach guide was then pinned in place after it was set for the appropriate rotation to allow for the most coverage without overhang. The tibia was then reamed and broached. The cut surfaces of bone were then irrigated with pulsatile lavage. The posterior structures were injected with the ropivacaine solution. The components were then opened, the cement was mixed, and the components were then cemented in place. The cement was allowed to harden with the knee in full extension. While the cement was hardening, the remaining soft tissues were then injected with a ropivacaine solution, which consisted of 246.25 mg of ropivacaine, 0.5 mg of epinephrine, 30 mg of Toradol, 80 g of clonidine, and 48.45 mL of sterile water, for a total of 100 mL of fluid injected. After the cemented hardened. The tourniquet was released, and hemostasis was obtained. A second gram of transexamic acid was given. The knee was again irrigated. The knee was again taken through range of motion and found to be stable throughout all range of motion of 0-130, and the patella tracked normally. The fascia was then closed with #2 strata fix suture. The subcutaneous tissue was closed with 3-0 Vicryl and 3-0 strata fix. Dermabond glue was used for the skin and placed with the knee in flexion. The patient was placed in a sterile silver dressing. Patient was then transferred to recovery room in stable condition. The retail administrative assistant EDILSON Werner was required due the complexity surgery and the need for a skilled trading assistant. She assisted in positioning, draping, retraction, and closure of the wound.
[2017-06-29] MEDS ORDERED: HYDROmorphone 0.5 MG/0.5 ML SYRINGE IVP PRN ×2 (16:18)
[2017-06-29] MEDS ORDERED: DIAZEPAM 5 MG TAB PO PRN ×2 (16:18)
[2017-06-29] MEDS ORDERED: MAGNESIUM HYDROXIDE 2,400 MG/10 ML CUP PO PRN (16:18)
[2017-06-29] MEDS ORDERED: NA PHOS,M-B/NA PHOS,DI-BA 133 ML ENEMA RECTAL PRN (16:18)
[2017-06-29] MEDS ORDERED: hydrOXYzine PAMOATE 25 MG CAP PO PRN (16:18)
[2017-06-29] MEDS ORDERED: NALOXONE 0.4 MG/ML 1 ML VIAL IV PRN (16:18)
[2017-06-29] MEDS ORDERED: BISACODYL 10 MG SUPP RECTAL PRN (16:18)
[2017-06-29] MEDS ORDERED: HYDROcodone/APAP 5-325MG 1 EACH TAB PO PRN ×2 (16:18)
[2017-06-29] MEDS ORDERED: ONDANSETRON 4 MG/2 ML VIAL IVP PRN (16:18)
--- NOTE | 2017-06-29 16:44 | XR ---
EXAMINATION TYPE: XR knee limited LT DATE OF EXAM: 06/29/2017 COMPARISON: NONE HISTORY: Surgery TECHNIQUE: 2 views FINDINGS: There is a left knee prosthesis. Components are in anatomic position. I see no complication process. IMPRESSION: No complicating process seen.
[2017-06-29] MEDS: SENNOSIDES-DOCUSATE SODIUM 1 EACH TAB PO SCH (20:40)
[2017-06-29] MEDS: ASPIRIN 325 MG TAB PO SCH (20:40)
[2017-06-30] MEDS: ceFAZolin IN SWFI 2 GM/20 ML SYRINGE IVP SCH ×2 (01:03→05:56)
[2017-06-30] MEDS: SODIUM CHLORIDE 0.9% 1,000 ML IV SCH ×2 (05:55→09:15)
[2017-06-30 07:44] LABS: Basophils % (A) 0 %; Eosinophils # (A) 0.1 k/uL (0-0.7); Eosinophils % (A) 1 %; HCT 40.4 % (39.0-53.0); HGB 11.9 gm/dL (13.0-17.5); Lymphocytes # (A) 1.5 k/uL (1.0-4.8); Lymphocytes % (A) 11 %; MCH 27.9 pg (25.0-35.0); MCHC 29.5 g/dL (31.0-37.0); MCV 94.5 fL (80.0-100.0); Mean Platelet Volume 7.4; Monocytes # (A) 0.9 k/uL (0-1.0); Monocytes % (A) 7 %; Neutrophils # (A) 10.4 k/uL (1.3-7.7); Neutrophils % (A) 80 %; Platelet Count 306 k/uL (150-450); RBC 4.27 m/uL (4.30-5.90); RDW 13.5 % (11.5-15.5); WBC 13.1 k/uL (3.8-10.6)
--- NOTE | 2017-06-30 08:45 | P.DS ---
Providers Date of admission: 06/29/17 11:58 Expected date of discharge: 06/30/17 Attending physician: Osito Palmer Consults: 06/29/17 16:18 Consult Physician Routine Consulting Provider: Uriel Pendleton Consult Reason/Comments: medical management Do you want consulting provider notified?: Yes Primary care physician: Uriel Pendleton - Discharge Diagnosis(es) (1) Primary osteoarthritis of left knee Current Visit: Yes Status: Acute (2) S/P total knee arthroplasty Current Visit: Yes Status: Acute Hospital Course: This is a 62-year-old male with known history of degenerative arthritis of the left knee. The patient presents for evaluation. After discussion and consideration patient elects to proceed with total knee arthroplasty. The patient is seen preoperatively by Dr. Palmer and cleared for surgery. Patient is admitted to [facility] on 06/29/2017 for total knee arthroplasty. The procedures performed without complication or sequelae. The patient is doing well postoperatively. Labs and vital signs are stable on day of discharge. On day of discharge patient's knee incision is healing well. There is minimal erythema. There is no drainage noted at this time. There is minimal soft tissue swelling to the knee. Patient has full foot and ankle motion without difficulty or pain. Neurovascular status to the left lower extremity is intact. Patient is discharged home in good condition. Please see med rec for accurate list of home medications. Plan - Discharge Summary Discharge Rx Participant: Yes New Discharge Prescriptions: New Aspirin 325 mg PO BID #60 tab HYDROcodone/APAP 5-325MG [[place] 5-325] 1 - 2 tab PO Q4-6H PRN #90 tab PRN Reason: Pain Sennosides [Senokot] 1 tab PO BID #60 tablet No Action Lansoprazole 30 mg PO DAILY Garlic 1 tab PO DAILY [place]-3 Fatty Acids [[place]-3] 1,000 mg PO DAILY Budesonide/Formoterol Fumarate [Symbicort 80-4.5 Mcg Inhaler] 2 puff INHALATION RT-BID Multivitamins, Thera [Multivitamin (formulary)] 1 tab PO DAILY Loratadine [Claritin] 10 mg PO DAILY L.acidoph,Paracasei, B.lactis [Probiotic] 1 cap PO DAILY Calcium Polycarbophil [Fibercon] 625 mg PO BID Stool Softener 1 tab PO BID Celebrex 1 tab PO DAILY Fiber 2 tab PO BID Discharge Medication List Garlic 1 tab PO DAILY 10/12/14 [History] Lansoprazole 30 mg PO DAILY 10/12/14 [History] [place]-3 Fatty Acids [[place]-3] 1,000 mg PO DAILY 10/12/14 [History] Budesonide/Formoterol Fumarate [Symbicort 80-4.5 Mcg Inhaler] 2 puff INHALATION RT-BID 06/14/15 [History] L.acidoph,Paracasei, B.lactis [Probiotic] 1 cap PO DAILY 11/18/16 [History] Loratadine [Claritin] 10 mg PO DAILY 11/18/16 [History] Multivitamins, Thera [Multivitamin (formulary)] 1 tab PO DAILY 11/18/16 [History ] Calcium Polycarbophil [Fibercon] 625 mg PO BID 06/21/17 [History] Celebrex 1 tab PO DAILY 06/21/17 [History] Fiber 2 tab PO BID 06/21/17 [History] Stool Softener 1 tab PO BID 06/21/17 [History] Aspirin 325 mg PO BID #60 tab 06/30/17 [Rx] HYDROcodone/APAP 5-325MG [[place] 5-325] 1 - 2 tab PO Q4-6H PRN #90 tab 06/30/17 [ Rx] Sennosides [Senokot] 1 tab PO BID #60 tablet 06/30/17 [Rx] Follow up Appointment(s)/Referral(s): Osito Palmer DO [Doctor of Osteopathic Medicine] - 2 Weeks Ambulatory/Diagnostic Orders: Continuous Passive Motion (CPM) Machine [DME.AMB1] Time Frame: 3 Weeks, Location : Determined By Patient Activity/Diet/Wound Care/Special Instructions: Weightbearing as tolerated with a walker CPM 5-6h daily Leave dressing intact. May be removed by home care nurse in 7 days, 07/06/2017. May shower with dressing on. [facility] with questions or concerns [phone] Discharge Disposition: HOME WITH HOME HEALTH SERVICES
[2017-06-30] MEDS: MELOXICAM 7.5 MG TAB PO SCH (09:12)
[2017-06-30] MEDS: ASPIRIN 325 MG TAB PO SCH ×2 (09:12→21:48)
[2017-06-30] MEDS: LACTATED RINGERS 1,000 ML IV SCH (09:14)
--- NOTE | 2017-06-30 10:43 | P.PN ---
Progress Note - Text The patient is status post left adductor canal catheter placement. The catheter was placed for postoperative pain control, status post total left arthroplasty. Ropivacaine 0.2% is infusing at 8 mLs per hour. The patient has no complaints of left lower extremity numbness or weakness. Patient's VAS score is 0 -10. Assessment: Patient's adductor canal catheter is in place and working appropriately. Plan: continue infusion and adjust it as needed.
--- NOTE | 2017-06-30 11:16 | P.CONS ---
History of Present Illness - History of Present Illness 62-year-old male is postoperative for severe osteoarthritis of the left knee and left total knee arthroplasty. Patient is on stable sitting up in chair without complaint Review of Systems Musculoskeletal: left: knee pain Past Medical History Past Medical History: COPD, GERD/Reflux, Osteoarthritis (OA) Additional Past Medical History / Comment(s): NUMEROUS BOWEL OBSTRUCTIONS, ileus , diverticular disease, hx asbestos exposure. HX OF POLYPS History of Any Multi-Drug Resistant Organisms: None Reported Past Surgical History: Back Surgery, Bowel Resection, Cholecystectomy, Orthopedic Surgery, Tonsillectomy Additional Past Surgical History / Comment(s): COLONOSCOPY, EGD, BOWEL RESECTIONS IN 2013- LYSIS OF ADHESIONS-05/09/14, had spinal stenosis, had fusion done, R knee arthroscopy for torn meniscus. Past Anesthesia/Blood Transfusion Reactions: No Reported Reaction Past Psychological History: No Psychological Hx Reported Additional Psychological History / Comment(s): . Smoking Status: Former smoker Past Alcohol Use History: Occasional Additional Past Alcohol Use History / Comment(s): started smoking at age 12 worked up to 3 ppd, quit 1997 Past Drug Use History: None Reported - Past Family History Father Family Medical History: Cancer Additional Family Medical History / Comment(s): at age 64- colon cancer Mother Family Medical History: Hyperlipidemia, Hypertension Additional Family Medical History / Comment(s): Mother at age 78 Medications and Allergies Home Medications Medication Instructions Recorded Confirmed Type RX: Garlic 1 tab PO DAILY 10/12/14 06/29/17 History RX: Lansoprazole 30 mg PO DAILY 10/12/14 06/29/17 History RX: [place]-3 Fatty Acids [[place]-3] 1,000 mg PO DAILY 10/12/14 06/29/17 History RX: Budesonide/Formoterol Fumarate 2 puff INHALATION RT-BID 06/14/15 06/29/17 History [Symbicort 80-4.5 Mcg Inhaler] RX: L.acidoph,Paracasei, B.lactis 1 cap PO DAILY 11/18/16 06/29/17 History [Probiotic] RX: Loratadine [Claritin] 10 mg PO DAILY 11/18/16 06/29/17 History RX: Multivitamins, Thera 1 tab PO DAILY 11/18/16 06/29/17 History [Multivitamin (formulary)] Calcium Polycarbophil [Fibercon] 625 mg PO BID 06/21/17 06/29/17 History Celebrex 1 tab PO DAILY 06/21/17 06/29/17 History Fiber 2 tab PO BID 06/21/17 06/29/17 History Stool Softener 1 tab PO BID 06/21/17 06/29/17 History HYDROcodone/APAP 5-325MG [[place] 1 - 2 tab PO Q4-6H PRN #90 tab 06/30/17 Rx 5-325] RX: Aspirin 325 mg PO BID #60 tab 06/30/17 Rx Sennosides [Senokot] 1 tab PO BID #60 tablet 06/30/17 Rx Allergies Allergy/AdvReac Type Severity Reaction Status Date / Time No Known Allergies Allergy Verified 06/29/17 16:41 Physical Exam Vitals: Vital Signs Temp Pulse Pulse Pulse Resp BP BP 06/30/17 07:53 98.6 F 72 20 116/72 06/30/17 00:49 97.9 F 78 18 114/68 06/30/17 00:00 17 06/29/17 22:00 71 107/71 06/29/17 21:45 82 105/69 06/29/17 21:30 71 97/65 06/29/17 21:15 70 106/71 06/29/17 21:00 72 110/74 06/29/17 20:45 81 124/81 06/29/17 20:30 77 114/70 06/29/17 20:15 97.4 F L 80 17 119/76 06/29/17 19:32 67 16 103/55 06/29/17 19:00 76 16 115/55 06/29/17 18:30 91 16 115/66 06/29/17 18:15 74 16 115/64 06/29/17 18:00 81 16 115/67 06/29/17 17:45 76 16 121/62 06/29/17 17:30 80 16 119/62 06/29/17 17:20 80 16 116/61 06/29/17 17:05 80 16 127/64 06/29/17 16:50 82 16 112/63 06/29/17 16:35 88 16 128/66 06/29/17 16:22 97.6 F 96 16 144/81 06/29/17 13:42 65 06/29/17 13:06 89 16 119/76 06/29/17 12:15 97.9 F 72 16 138/81 Pulse Ox 06/30/17 07:53 96 06/30/17 00:49 92 L 06/30/17 00:00 06/29/17 22:00 06/29/17 21:45 06/29/17 21:30 06/29/17 21:15 06/29/17 21:00 06/29/17 20:45 06/29/17 20:30 06/29/17 20:15 94 L 06/29/17 19:32 94 L 06/29/17 19:00 95 06/29/17 18:30 93 L 06/29/17 18:15 95 06/29/17 18:00 94 L 06/29/17 17:45 93 L 06/29/17 17:30 94 L 06/29/17 17:20 94 L 06/29/17 17:05 96 06/29/17 16:50 97 06/29/17 16:35 97 06/29/17 16:22 95 06/29/17 13:42 95 06/29/17 13:06 96 06/29/17 12:15 98 Intake and Output 06/29/17 06/30/17 06/30/17 22:59 06:59 14:59 Intake Total 1712 1120 Output Total 50 1000 Balance 1662 120 Intake: IV 252 Intake, IV Titration 260 520 Amount Sodium Chloride 0.9% 1, 260 520 000 ml @ 65 mls/hr IV . [id number] [facility] Rx#:[id number] Oral 1200 600 Output: Urine 1000 Estimated Blood Loss 50 Other: Voiding Method Urinal # Voids 2 - Constitutional General appearance: obese - EENT Eyes: PERRLA Ears: bilateral: normal - Neck Neck: normal ROM - Respiratory Respiratory: bilateral: CTA - Cardiovascular Rhythm: regular - Gastrointestinal General gastrointestinal: soft - Integumentary Integumentary: normal - Neurologic Neurologic: CNII-XII intact - Psychiatric Psychiatric: A&O x's 3, appropriate affect, intact judgment & insight Results CBC & Chem 7: 06/30/17 07:06 Labs: Abnormal Lab Results - Last 24 Hours (Table) 06/30/17 Range/Units 07:06 WBC 13.1 H (3.8-10.6) k/uL RBC 4.27 L (4.30-5.90) m/uL Hgb 11.9 L (13.0-17.5) gm/dL MCHC 29.5 L (31.0-37.0) g/dL Neutrophils # 10.4 H (1.3-7.7) k/uL Assessment and Plan Plan: Assessment Postoperative left total knee arthroplasty for severe osteoarthritis History of COPD secondary asbestos exposure stable History of GERD Plan We'll continue to monitor patient
[2017-06-30] MEDS: SYMBICORT 80-4.5 MCG INHALER INHALATION SCH ×2 (11:51→19:28)
[2017-06-30] MEDS: ACETAMINOPHEN TAB 500 MG TAB PO PRN (18:43)
--- NOTE | 2017-06-30 19:08 | XR ---
EXAMINATION TYPE: XR chest 2V DATE OF EXAM: 06/30/2017 COMPARISON: 05/19/2017 HISTORY: Fever TECHNIQUE: Frontal and lateral views of the chest are obtained. FINDINGS: There is some calcified pleural plaque at the left lung base. There is coarsening of lung markings in the left lower lobe. Right lung is clear. Heart size is normal. There is no heart failure . Thoracic aorta is atheromatous. IMPRESSION: Pleural and pulmonary scarring in the left lower lobe. No change compared to old exam. N ormal heart.
[2017-06-30 20:59] VITALS: RESP 16
[2017-06-30] MEDS: SENNOSIDES-DOCUSATE SODIUM 1 EACH TAB PO SCH (21:48)
[2017-07-01] MEDS: ACETAMINOPHEN TAB 500 MG TAB PO PRN (02:48)
[2017-07-01] MEDS ORDERED: PANTOPRAZOLE 40 MG TABLET PO SCH (06:30)
[2017-07-01] MEDS: SODIUM CHLORIDE 0.9% 1,000 ML IV SCH ×2 (07:08→14:44)
[2017-07-01] MEDS: LACTATED RINGERS 1,000 ML IV SCH (07:09)
[2017-07-01] MEDS: ASPIRIN 325 MG TAB PO SCH (08:15)
[2017-07-01] MEDS: MELOXICAM 7.5 MG TAB PO SCH (08:15)
--- NOTE | 2017-07-01 08:42 | P.DS ---
Providers Date of admission: 06/29/17 11:58 Expected date of discharge: 07/01/17 Attending physician: Osito Palmer Consults: 06/29/17 16:18 Consult Physician Routine Consulting Provider: Uriel Pendleton Consult Reason/Comments: medical management Do you want consulting provider notified?: Yes Primary care physician: Uriel Pendleton - Discharge Diagnosis(es) (1) Primary osteoarthritis of left knee Current Visit: Yes Status: Acute (2) S/P total knee arthroplasty Current Visit: Yes Status: Acute Hospital Course: This is a 62-year-old male with known history of degenerative arthritis of the left knee. The patient presents for evaluation. After discussion and consideration patient elects to proceed with total knee arthroplasty. The patient is seen preoperatively by Dr. Palmer and cleared for surgery. Patient is admitted to [facility] on 06/29/2017 for total knee arthroplasty. The procedures performed without complication or sequelae. The patient is doing well postoperatively. Labs and vital signs are stable on day of discharge. On day of discharge patient's knee incision is healing well. There is minimal erythema. There is no drainage noted at this time. There is minimal soft tissue swelling to the knee. Patient has full foot and ankle motion without difficulty or pain. Neurovascular status to the left lower extremity is intact. Patient is discharged home in good condition. Please see med rec for accurate list of home medications. Plan - Discharge Summary Discharge Rx Participant: Yes New Discharge Prescriptions: New Aspirin 325 mg PO BID #60 tab HYDROcodone/APAP 5-325MG [[place] 5-325] 1 - 2 tab PO Q4-6H PRN #90 tab PRN Reason: Pain Sennosides [Senokot] 1 tab PO BID #60 tablet No Action Lansoprazole 30 mg PO DAILY Garlic 1 tab PO DAILY [place]-3 Fatty Acids [[place]-3] 1,000 mg PO DAILY Budesonide/Formoterol Fumarate [Symbicort 80-4.5 Mcg Inhaler] 2 puff INHALATION RT-BID Multivitamins, Thera [Multivitamin (formulary)] 1 tab PO DAILY Loratadine [Claritin] 10 mg PO DAILY L.acidoph,Paracasei, B.lactis [Probiotic] 1 cap PO DAILY Calcium Polycarbophil [Fibercon] 625 mg PO BID Stool Softener 1 tab PO BID Celebrex 1 tab PO DAILY Fiber 2 tab PO BID Discharge Medication List Garlic 1 tab PO DAILY 10/12/14 [History] Lansoprazole 30 mg PO DAILY 10/12/14 [History] [place]-3 Fatty Acids [[place]-3] 1,000 mg PO DAILY 10/12/14 [History] Budesonide/Formoterol Fumarate [Symbicort 80-4.5 Mcg Inhaler] 2 puff INHALATION RT-BID 06/14/15 [History] L.acidoph,Paracasei, B.lactis [Probiotic] 1 cap PO DAILY 11/18/16 [History] Loratadine [Claritin] 10 mg PO DAILY 11/18/16 [History] Multivitamins, Thera [Multivitamin (formulary)] 1 tab PO DAILY 11/18/16 [History ] Calcium Polycarbophil [Fibercon] 625 mg PO BID 06/21/17 [History] Celebrex 1 tab PO DAILY 06/21/17 [History] Fiber 2 tab PO BID 06/21/17 [History] Stool Softener 1 tab PO BID 06/21/17 [History] Aspirin 325 mg PO BID #60 tab 06/30/17 [Rx] HYDROcodone/APAP 5-325MG [[place] 5-325] 1 - 2 tab PO Q4-6H PRN #90 tab 06/30/17 [ Rx] Sennosides [Senokot] 1 tab PO BID #60 tablet 06/30/17 [Rx] Follow up Appointment(s)/Referral(s): Uriel Pendleton MD [Primary Care Provider] - 07/07/17 9:00 am [facility], [NON-STAFF] - Osito Palmer DO [Doctor of Osteopathic Medicine] - 07/16/17 9:20 am Ambulatory/Diagnostic Orders: Continuous Passive Motion (CPM) Machine [DME.AMB1] Time Frame: 3 Weeks, Location : Determined By Patient Activity/Diet/Wound Care/Special Instructions: Weightbearing as tolerated with a walker CPM 5-6h daily Leave dressing intact. May be removed by home care nurse in 7 days, 07/06/2017. May shower with dressing on. [facility] with questions or concerns [phone] [facility] [phone] - call when home to set up delivery of CPM Discharge Disposition: HOME WITH HOME HEALTH SERVICES
[2017-07-01] MEDS ORDERED: LACTOBACILLUS ACIDOPH & BULGAR 1 EACH PACKET PO SCH (09:00)
[2017-07-01] MEDS ORDERED: LORATADINE 10 MG TAB PO SCH (09:00)
[2017-07-01] MEDS: SYMBICORT 80-4.5 MCG INHALER INHALATION SCH (09:15)
--- NOTE | 2017-07-01 09:27 | P.PN ---
Progress Note - Text Anesthesia POD 2. Patient is status post left TKR under spinal anesthesia with a left adductor canal catheter placed for postoperative pain relief. With ropivacaine 0.2% running at 8 cc's per hour, the patient's VAS is (0, 2). Catheter site is clean dry and intact.
[2017-07-01] MEDS ORDERED: MULTIVITAMINS, THERA 1 EACH TAB PO SCH (12:00)
[2017-07-01 14:33] VITALS: BP 114/71; PULSE 90; TEMP 97.9
[2017-07-01 15:13] LABS: Basophils % (A) 0 %; Eosinophils # (A) 0.1 k/uL (0-0.7); Eosinophils % (A) 1 %; HCT 40.7 % (39.0-53.0); HGB 12.5 gm/dL (13.0-17.5); Lymphocytes # (A) 1.4 k/uL (1.0-4.8); Lymphocytes % (A) 15 %; MCH 28.9 pg (25.0-35.0); MCHC 30.6 g/dL (31.0-37.0); MCV 94.6 fL (80.0-100.0); Mean Platelet Volume 7.4; Monocytes # (A) 1.1 k/uL (0-1.0); Monocytes % (A) 11 %; Neutrophils # (A) 6.7 k/uL (1.3-7.7); Neutrophils % (A) 71 %; Platelet Count 291 k/uL (150-450); RDW 13.5 % (11.5-15.5); WBC 9.4 k/uL (3.8-10.6)
[2017-07-01 15:22] LABS: Anion Gap 8 mmol/L; Blood Urea Nitrogen 12 mg/dL (9-20); Calcium 8.9 mg/dL (8.4-10.2); Carbon Dioxide 27 mmol/L (22-30); Chloride 105 mmol/L (98-107); Glucose 115 mg/dL (74-99); Potassium 4.3 mmol/L (3.5-5.1); Sodium 140 mmol/L (137-145)
[2017-07-01 15:45] LABS: Appearance,Urine Clear (Clear); Bilirubin,Urine Negative (Negative); Blood,Urine Negative (Negative); Color,Urine Light Yellow; Glucose,Urine (UA) Negative (Negative); Ketones,Urine Negative (Negative); Leukocyte Esterase,Urine Negative (Negative); Nitrite,Urine Negative (Negative); Protein,Urine Negative (Negative); Specific Gravity,Urine 1.003 (1.001-1.035); Urobilinogen,Urine <2.0 mg/dL (<2.0)
--- NOTE | 2017-07-02 20:16 | P.PN ---
Subjective Progress Note Date: 07/01/17 Progress note being dictated for Dr. Buenrostro Interval history: This is a 62-year-old gentleman status post left total knee arthroplasty secondary to severe osteoarthritis. Last night spiked fevers, T- max 102.1, WBC of 13.1 accompanied by mild tachycardia, no nausea or vomiting. This morning afebrile, WBC normalized at 9.4, tachycardia subsided. UA negative , urine culture pending. Good diet intake, no nausea or vomiting. Positive bowel movement. Denies chest pain, palpitations or increasing shortness of breath. Denies lightheadedness dizziness or focal deficits. Denies cough. Eager for discharge home today. Objective - Vital Signs Vital signs: Vital Signs Temp 97.9 F 07/01/17 14:00 Pulse 90 07/01/17 14:00 Resp 16 07/01/17 14:00 BP 114/71 07/01/17 14:00 Pulse Ox 98 07/01/17 14:00 Intake & Output 06/30/17 07/01/17 07/01/17 18:59 06:59 18:59 Intake Total 520 1300 420 Balance 520 1300 420 Intake: IV 520 Sodium Chloride 0.9% 1, 520 000 ml @ 65 mls/hr IV . [id number] [facility] Rx#:[id number] Oral 1300 420 Other: Voiding Method Toilet Toilet Toilet # Voids 2 3 2 - Exam PHYSICAL EXAM: VITAL SIGNS: As above GENERAL: Being up in bed, no acute distress HEENT: Conjunctivae normal. eyes normal. NECK: No JVD. No thyroid enlargement. No LNs CARDIOVASCULAR: S1, S2 muffled. No murmur RESPIRATION: Breath sounds diminished in the bases. No rhonchi or crackles. No bronchial breathing. No wheezing ABDOMEN: Soft, nontender . No guarding. no masses palpable. Bowel sounds heard. LEGS: Left knee dressing clean dry and intact PSYCHIATRY: Alert and oriented -3, mood and affect normal. NERVOUS SYSTEM: Cranial N 2-12 grossly normal. Moves all 4 limbs. Diffuse weakness No focal deficits. No sensory deficit. - Labs CBC & Chem 7: 07/01/17 14:59 07/01/17 14:59 Assessment and Plan Assessment: Postoperative left total knee arthroplasty for severe osteoarthritis History of COPD secondary asbestos exposure stable History of GERD Fever, probably related to atelectasis. Urine culture pending Plan: Continue current medication regime ,monitoring and symptomatic treatment. Discharge planning in progress today by orthopedics. Final urine culture results to be faxed to PCP. Maintain aggressive pulmonary toileting with incentive spirometer. Repeat CBC, BMP in 3 days. Further recommendations to follow. The impression and plan of care has been dictated as directed. : I performed a history and examination of this patient, discussed the same with the dictator. I agree with the dictator's note ,documented as a scribe. Any additional findings or plans will be noted.
== END 2017-07-01 17:35 | disposition home health service (06) | DRG 470 ==
LOC: 2ORMAIN 11:58 → 3SUR 19:40
PROVIDERS: ADMIT Orthopaedic Surgery; ATTEND Orthopaedic Surgery
PROC: 0SRD069 Replacement of Left Knee Joint with Oxidized Zirconium on Polyethylene Synthetic Substitute, Cemented, Open Approach (ICD-10-PCS; principal; 2017-06-29 13:30)
DX: M17.12 Unilateral primary osteoarthritis, left knee (principal); J44.9 Chronic obstructive pulmonary disease, unspecified; K21.9 Gastro-esophageal reflux disease without esophagitis; Z79.51 Long term (current) use of inhaled steroids; Z79.899 Other long term (current) drug therapy; Z87.891 Personal history of nicotine dependence; Z77.090 Contact with and (suspected) exposure to asbestos; Z90.49 Acquired absence of other specified parts of digestive tract; Z98.1 Arthrodesis status
CPT/HCPCS: 71046; 80048; 81003; 85025; 87086; 88300; 94640

== ENCOUNTER → 2018-10-18 | Outpatient (CLI) | payer MEDICAID ==
--- NOTE | 2018-10-18 10:27 | XR ---
EXAMINATION TYPE: XR chest 2V DATE OF EXAM: 10/18/2018 COMPARISON: 06/30/2017 TECHNIQUE: PA and lateral views submitted. HISTORY: Asbestosis exposure FINDINGS: There is calcified pleural plaque at the left lung base and pleural thickening. No overt failure or p neumothorax. Arthropathy of the shoulders. Heart size stable. Atherosclerotic change aorta. IMPRESSION: 1. Persistent large calcified pleural plaque left lung base with associated pleural thickening compat ible with the patient's history of asbestos related disease.
== END | disposition home or self-care (01) ==
LOC: RADMRIMAIN 10:04
PROVIDERS: ATTEND Family Medicine
DX: J61 Pneumoconiosis due to asbestos and other mineral fibers (principal)
CPT/HCPCS: 71046

== ENCOUNTER → 2018-11-03 | Outpatient (CLI) | payer MEDICAID ==
--- NOTE | 2018-11-03 14:08 | XR ---
Abdomen HISTORY: Pain, nausea and vomiting Frontal view the abdomen on 2 images Correlated to prior exam 06/19/2015, CT 05/12/2017 Surgical clips present right upper quadrant. There are chronic calcified pleural plaques left lung ba se. There is no evident pneumoperitoneum or bowel obstruction. Surgical clip again noted in the pelvi s. Degenerative disc changes in the visualized spine, there is a spinal curvature. IMPRESSION: Nonobstructive bowel gas pattern.
== END | disposition home or self-care (01) ==
LOC: RADXRMAIN 09:57
PROVIDERS: ATTEND Family Medicine
DX: R10.9 Unspecified abdominal pain (principal)
CPT/HCPCS: 74018

== ENCOUNTER 2018-11-04 12:05 | Inpatient (IN) | payer MEDICAID ==
[2018-11-04] MEDS ORDERED: ONDANSETRON 4 MG/2 ML VIAL IVP STA (12:44)
[2018-11-04] MEDS ORDERED: SODIUM CHLORIDE 0.9% 1,000 ML IV STA (12:44)
[2018-11-04] MEDS ORDERED: HYDROmorphone 1 MG/ML 1 ML SYRINGE IVP STA (12:44)
--- NOTE | 2018-11-04 12:46 | ED ---
General Adult HPI - General Chief complaint: Abdominal Pain Stated complaint: poss bowel obstruction Time Seen by Provider: 11/04/18 12:24 Source: patient, RN notes reviewed Mode of arrival: ambulatory Limitations: no limitations - History of Present Illness Initial comments: Patient is a pleasant 61-year-old male presenting to the emergency Department with abdominal discomfort. Symptoms did start several days ago. Patient is tolerating oral intake. Last regular bowel movement was 2 and half days ago. Normally patient has a bowel movement daily. Patient did have some minimal diarrhea today. No nausea vomiting. Patient states his abdomen feels full and distended and worsened today after eating. Patient does have a history of similar symptoms previously associated with bowel obstruction. Patient has previously had laparoscopic procedure for adhesions. - Related Data Home Medications Medication Instructions Recorded Confirmed Garlic 1 tab PO DAILY 10/12/14 06/29/17 Lansoprazole 30 mg PO DAILY 10/12/14 06/29/17 Errol-3 Fatty Acids [Errol-3] 1,000 mg PO DAILY 10/12/14 06/29/17 Budesonide/Formoterol Fumarate 2 puff INHALATION RT-BID 06/14/15 06/29/17 [Symbicort 80-4.5 Mcg Inhaler] L.acidoph,Paracasei, B.lactis 1 cap PO DAILY 11/18/16 06/29/17 [Probiotic] Loratadine [Claritin] 10 mg PO DAILY 11/18/16 06/29/17 Multivitamins, Thera [Multivitamin 1 tab PO DAILY 11/18/16 06/29/17 (formulary)] Calcium Polycarbophil [Fibercon] 625 mg PO BID 06/21/17 06/29/17 Celebrex 1 tab PO DAILY 06/21/17 06/29/17 Fiber 2 tab PO BID 06/21/17 06/29/17 Stool Softener 1 tab PO BID 06/21/17 06/29/17 Previous Rx's Medication Instructions Recorded Aspirin 325 mg PO BID #60 tab 06/30/17 HYDROcodone/APAP 5-325MG [[place] 1 - 2 tab PO Q4-6H PRN #90 tab 06/30/17 5-325] Sennosides [Senokot] 1 tab PO BID #60 tablet 06/30/17 Allergies Allergy/AdvReac Type Severity Reaction Status Date / Time No Known Allergies Allergy Verified 11/04/18 12:09 Review of Systems ROS Statement: Those systems with pertinent positive or pertinent negative responses have been documented in the HPI. ROS Other: All systems not noted in ROS Statement are negative. Constitutional: Denies: fever Eyes: Denies: eye pain ENT: Denies: ear pain Respiratory: Denies: cough Cardiovascular: Denies: chest pain Endocrine: Denies: fatigue Gastrointestinal: Reports: abdominal pain. Denies: vomiting Genitourinary: Denies: dysuria Musculoskeletal: Denies: back pain Skin: Denies: rash Neurological: Denies: weakness Past Medical History Past Medical History: COPD, GERD/Reflux, Osteoarthritis (OA) Additional Past Medical History / Comment(s): NUMEROUS BOWEL OBSTRUCTIONS, ileus, diverticular disease, hx asbestos exposure. HX OF POLYPS History of Any Multi-Drug Resistant Organisms: None Reported Past Surgical History: Back Surgery, Bowel Resection, Cholecystectomy, Orthope dic Surgery, Tonsillectomy Additional Past Surgical History / Comment(s): COLONOSCOPY, EGD, BOWEL RESECTIONS IN 2012- LYSIS OF ADHESIONS-05/09/14, had spinal stenosis, had fu trinity done, R knee arthroscopy for torn meniscus. Past Anesthesia/Blood Transfusion Reactions: No Reported Reaction Past Psychological History: No Psychological Hx Reported Smoking Status: Former smoker Past Alcohol Use History: Occasional Past Drug Use History: None Reported - Past Family History Father Family Medical History: Cancer Additional Family Medical History / Comment(s): at age 64- colon cancer Mother Family Medical History: Hyperlipidemia, Hypertension Additional Family Medical History / Comment(s): Mother at age 78 General Exam Limitations: no limitations General appearance: alert, in no apparent distress Head exam: Present: atraumatic Eye exam: Present: normal appearance, PERRL ENT exam: Present: normal oropharynx Neck exam: Present: normal inspection Respiratory exam: Present: normal lung sounds bilaterally Cardiovascular Exam: Present: regular rate, normal rhythm Expanded Peripheral pulses: 2+: Posterior Tibialis (R), Posterior Tibialis (L) GI/Abdominal exam: Present: soft, distended (Abdomen does appear mildly distended), tenderness (Moderate diffuse tenderness), diminished bowel sounds. Absent: guarding, rebound, rigid, pulsatile mass Extremities exam: Present: normal inspection. Absent: pedal edema, calf tenderness Neurological exam: Present: alert Psychiatric exam: Present: normal affect, normal mood Skin exam: Present: normal color Course Vital Signs 11/04/18 11/04/18 11/04/18 12:07 13:30 14:00 Temperature 97.9 F Pulse Rate 88 Respiratory 20 Rate Blood Pressure 151/93 144/92 144/92 O2 Sat by Pulse 96 95 96 Oximetry 11/04/18 14:30 Temperature Pulse Rate 62 Respiratory 18 Rate Blood Pressure 125/75 O2 Sat by Pulse 96 Oximetry Medical Decision Making - Medical Decision Making Patient reevaluated and somewhat improved following medications. Patient is upd ated on results and plan. Case was discussed in detail with Dr. Buenrostro, covering for Dr. Pendleton, who will admit. Case was also discussed with Dr. Weaver who will consult for surgery. - Lab Data Result diagrams: 11/04/18 13:17 11/04/18 13:17 Lab Results 11/04/18 11/04/18 11/04/18 Range/Units 13:17 13:17 13:17 WBC 10.3 (3.8-10.6) k/uL RBC 5.48 (4.30-5.90) m/uL Hgb 15.6 (13.0-17.5) gm/dL Hct 49.0 (39.0-53.0) % MCV 89.4 (80.0-100.0) fL MCH 28.4 (25.0-35.0) pg MCHC 31.8 (31.0-37.0) g/dL RDW 14.2 (11.5-15.5) % Plt Count 392 (150-450) k/uL Neutrophils % 77 % Lymphocytes % 13 % Monocytes % 7 % Eosinophils % 1 % Basophils % 0 % Neutrophils # 7.9 H (1.3-7.7) k/uL Lymphocytes # 1.4 (1.0-4.8) k/uL Monocytes # 0.7 (0-1.0) k/uL Eosinophils # 0.1 (0-0.7) k/uL Basophils # 0.0 (0-0.2) k/uL PT 10.1 (9.0-12.0) sec INR 0.9 (<1.2) APTT 25.2 (22.0-30.0) sec Sodium 140 (137-145) mmol/L Potassium 4.5 (3.5-5.1) mmol/L Chloride 105 (98-107) mmol/L Carbon Dioxide 24 (22-30) mmol/L Anion Gap 11 mmol/L BUN 16 (9-20) mg/dL Creatinine 0.93 (0.66-1.25) mg/dL Est GFR (CKD-EPI)AfAm >90 (>60 ml/min/1.73 sqM) Est GFR (CKD-EPI)NonAf 88 (>60 ml/min/1.73 sqM) Glucose 87 (74-99) mg/dL Calcium 9.6 (8.4-10.2) mg/dL Total Bilirubin 0.7 (0.2-1.3) mg/dL AST 24 (17-59) U/L ALT 34 (21-72) U/L Alkaline Phosphatase 60 (38-126) U/L Total Protein 7.2 (6.3-8.2) g/dL Albumin 4.2 (3.5-5.0) g/dL Amylase 59 (30-110) U/L Lipase 56 (23-300) U/L - Radiology Data Radiology results: report reviewed (Computed tomography scan of the abdomen pelvis is concerning for bowel obstruction.) Disposition Clinical Impression: Bowel obstruction Disposition: ADMITTED IP TO THIS HOSP Is patient prescribed a controlled substance at d/c from ED?: No Referrals: Uriel Pendleton MD [Primary Care Provider] - 1-2 days Decision Time: 16:13
[2018-11-04 13:42] LABS: Basophils % (A) 0 %; Eosinophils # (A) 0.1 k/uL (0-0.7); Eosinophils % (A) 1 %; HGB 15.6 gm/dL (13.0-17.5); Lymphocytes # (A) 1.4 k/uL (1.0-4.8); Lymphocytes % (A) 13 %; MCH 28.4 pg (25.0-35.0); MCHC 31.8 g/dL (31.0-37.0); MCV 89.4 fL (80.0-100.0); Mean Platelet Volume 8.3; Monocytes # (A) 0.7 k/uL (0-1.0); Monocytes % (A) 7 %; Neutrophils # (A) 7.9 k/uL (1.3-7.7); Neutrophils % (A) 77 %; Platelet Count 392 k/uL (150-450); RBC 5.48 m/uL (4.30-5.90); RDW 14.2 % (11.5-15.5); WBC 10.3 k/uL (3.8-10.6)
[2018-11-04 13:50] LABS: ALT 34 U/L (21-72); AST 24 U/L (17-59); African American GFR (CKD) >90 (>60 ml/min/1.73 sqM); Albumin 4.2 g/dL (3.5-5.0); Alkaline Phosphatase 60 U/L (38-126); Amylase 59 U/L (30-110); Anion Gap 11 mmol/L; Blood Urea Nitrogen 16 mg/dL (9-20); Calcium 9.6 mg/dL (8.4-10.2); Carbon Dioxide 24 mmol/L (22-30); Chloride 105 mmol/L (98-107); Glucose 87 mg/dL (74-99); INR 0.9 (<1.2); Lipase 56 U/L (23-300); Partial Thromboplastin Time 25.2 sec (22.0-30.0); Potassium 4.5 mmol/L (3.5-5.1); Prothrombin Time 10.1 sec (9.0-12.0); Sodium 140 mmol/L (137-145); Total Bilirubin 0.7 mg/dL (0.2-1.3); Total Protein 7.2 g/dL (6.3-8.2)
--- NOTE | 2018-11-04 14:36 | CT ---
EXAMINATION TYPE: CT abdomen pelvis w con DATE OF EXAM: 11/04/2018 COMPARISON: Prior CT 05/12/2017, abdomen 11/03/2018 HISTORY: bloating/ab pain x 3 days. hx bowel obstruction CT DLP: 1236.5 mGycm Automated exposure control for dose reduction was used. TECHNIQUE: Helical acquisition of images from the lung bases through the pelvis have been completed. CONTRAST: Performed without Oral Contrast and with IV Contrast, patient injected with 100 mL of Isovue 300. FINDINGS: LUNG BASES: Calcified pleural plaque present at the left lung base as on prior exam, there is associa sheldon scarring present. AORTA: No significant abnormality is appreciated. LIVER/GB: Patient is post cholecystectomy. Some mild dilation of the transhepatic biliary ducts is pr esent. PANCREAS: No significant abnormality is seen. SPLEEN: No significant abnormality is seen. ADRENALS: No significant abnormality is seen. KIDNEYS: Some mild cortical thinning at the site of patient's prior low density within the midpole th e left kidney likely represents scarring. No hydronephrosis or renal calculus bilaterally.. REPRODUCTIVE ORGANS: No significant abnormality is seen BOWEL: There are multiple dilated small bowel loops. Caliber change is noted proximally in the left upper quadrant, axial image 44, coronal image #55. Mid abdomen shows dilation of bowel loops to appro ximately 5 to 6 cm with some wall thickening. There are air-fluid levels, possible pneumatosis presen t. Relative decompressed bowel loops present in the distal ileum. Fluid is present along the mesenter y.. FREE AIR: No Free Air visible. ASCITES: Small amount of ascites present about the liver, small amount of fluid in the pelvis with a surgical clip PELVIC ADENOPATHY: None visualized. RETROPERITONEAL ADENOPATHY: No Retroperitoneal Adenopathy visible. URINARY BLADDER: No significant abnormality is seen. OSSEOUS STRUCTURES: Degenerative disc disease present in the visualized spine. There is a spinal cur vature. IMPRESSION: DILATION OF THE BOWEL LOOPS IN THE MIDABDOMEN WITH TAPERING MORE DISTALLY COULD BE INDICATIVE OF SMAL L BOWEL OBSTRUCTION. CORRELATE.
[2018-11-04] MEDS ORDERED: ONDANSETRON 4 MG/2 ML VIAL IVP PRN (16:13)
[2018-11-04] MEDS ORDERED: NALOXONE 0.4 MG/ML 1 ML VIAL IV PRN (16:13)
[2018-11-04] MEDS ORDERED: HYDROmorphone 0.5 MG/0.5 ML SYRINGE IVP PRN (16:13)
[2018-11-04 16:45] LABS: Appearance,Urine Clear (Clear); Bilirubin,Urine Negative (Negative); Blood,Urine Negative (Negative); Color,Urine Yellow; Glucose,Urine (UA) Negative (Negative); Ketones,Urine 2+ (Negative); Leukocyte Esterase,Urine Negative (Negative); Nitrite,Urine Negative (Negative); PH, Urine 5.5 (5.0-8.0); Protein,Urine Trace (Negative); Urobilinogen,Urine <2.0 mg/dL (<2.0)
[2018-11-04 17:00] LABS: Specific Gravity,Urine >1.050 (1.001-1.035)
[2018-11-04 17:21] VITALS: BMI 33.2
[2018-11-04] MEDS: HYDROmorphone 1 MG/ML 1 ML SYRINGE IVP PRN ×2 (19:18→23:57)
[2018-11-04] MEDS: SODIUM CHLORIDE 0.9% 1,000 ML IV SCH (19:23)
[2018-11-04] MEDS: PANTOPRAZOLE 40 MG/10 ML VIAL IV SCH (19:31)
--- NOTE | 2018-11-04 23:18 | P.HPIM ---
History of Present Illness H&P Date: 11/04/18 Chief Complaint: Abdominal distention and bloating Patient is a 63-year-old male with a known history of multiple bowel obstructions, ileus, COPD, GERD and osteoarthritis came to ER with complaints of abdominal discomfort and bloating and pain. Mainly in the upper abdomen. Patient has been having worsening symptoms since 11/01/2018. Patient did have nausea or so vomiting. Patient also having minimal diarrhea since last night and this morning. Patient denied any recent illnesses. No Recent symptoms of gastroenteritis. No history of IBS. Last small bowel obstruction about 2 years ago and had laparoscopic lysis of adhesions at the time. Patient came to the hospital for further evaluation. CT abdomen. Showed dilation of the bowel loops in the mid abdomen with tapering more distally could be indicative of small bowel obstruction. Laboratory data reviewed. Review of Systems Constitutional: Patient denies any fever or chills . No generalized weakness or weight loss. Abdomen: Patient does have nausea and abdominal distention and bloating. minimal diarrhea.. Cardiovascular: Patient denies any chest pain or short of breath no palpitations. Respiratory: patient denied any cough is from production. No shortness of breath Neurologic: Patient denied any numbness or tingling headache. Musculoskeletal: Patient denies any complaints of joint swelling or deformity. Skin: Negative Psychiatric: Negative Endocrine: No heat or cold intolerance. No recent weight gain. Genitourinary: No dysuria or hematuria. All other 14 point ROS negative except the above Past Medical History Past Medical History: COPD, GERD/Reflux, Osteoarthritis (OA) Additional Past Medical History / Comment(s): NUMEROUS BOWEL OBSTRUCTIONS, ileus, diverticular disease, hx asbestos exposure. HX OF POLYPS History of Any Multi-Drug Resistant Organisms: None Reported Past Surgical History: Back Surgery, Bowel Resection, Cholecystectomy, Orthopedic Surgery, Tonsillectomy Additional Past Surgical History / Comment(s): COLONOSCOPY, EGD, BOWEL RESECTIONS IN 2013- LYSIS OF ADHESIONS-05/09/14, had spinal stenosis, had fusion done, R knee arthroscopy for torn meniscus. total L knee 2018 Past Anesthesia/Blood Transfusion Reactions: No Reported Reaction Past Psychological History: No Psychological Hx Reported Additional Psychological History / Comment(s): . Smoking Status: Former smoker Past Alcohol Use History: Occasional Additional Past Alcohol Use History / Comment(s): started smoking at age 12 worked up to 3 ppd, quit 1997 Past Drug Use History: None Reported - Past Family History Father Family Medical History: Cancer Additional Family Medical History / Comment(s): at age 64- colon cancer Mother Family Medical History: Hyperlipidemia, Hypertension Additional Family Medical History / Comment(s): Mother at age 78 Medications and Allergies Home Medications Medication Instructions Recorded Confirmed Type Garlic 1 tab PO DAILY 10/12/14 11/04/18 History Lansoprazole 30 mg PO DAILY 10/12/14 11/04/18 History [place]-3 Fatty Acids [Rake-3] 1,000 mg PO DAILY 10/12/14 11/04/18 History Budesonide/Formoterol Fumarate 2 puff INHALATION RT-BID 06/14/15 11/04/18 History [Symbicort 80-4.5 Mcg Inhaler] L.acidoph,Paracasei, B.lactis 1 cap PO DAILY 11/18/16 11/04/18 History [Probiotic] Multivitamins, Thera [Multivitamin 1 tab PO DAILY 11/18/16 11/04/18 History (formulary)] Celecoxib [CeleBREX] 100 mg PO DAILY 11/04/18 11/04/18 History Cholecalciferol (Vitamin D3) 2,000 unit PO DAILY 11/04/18 11/04/18 History [Vitamin D3] Fexofenadine HCl [Kimberly Allergy] 180 mg PO DAILY 11/04/18 11/04/18 History HYDROcodone/APAP 7.5-325MG [[place] 1 tab PO TID 11/04/18 11/04/18 History 7.5-325] Allergies Allergy/AdvReac Type Severity Reaction Status Date / Time No Known Allergies Allergy Verified 11/04/18 16:20 Physical Exam Vitals: Vital Signs Temp Pulse Pulse Resp BP BP Pulse Ox 11/04/18 17:27 78 16 11/04/18 17:11 97.7 F 78 16 151/79 96 11/04/18 16:38 98.6 F 80 18 125/70 97 11/04/18 16:30 18 120/75 96 11/04/18 16:00 105/60 98 11/04/18 15:30 128/69 11/04/18 15:00 117/78 95 11/04/18 14:30 62 18 125/75 96 11/04/18 14:00 144/92 96 06/21/19 13:30 144/92 95 11/04/18 12:07 97.9 F 88 20 151/93 96 Intake and Output 11/04/18 11/04/18 11/04/18 06:59 14:59 22:59 Other: Weight 102.058 kg PHYSICAL EXAMINATION: Patient is lying in the bed comfortably, no acute distress, awake alert and oriented.. HEENT: Normocephalic. Neck is supple. Pupils reactive. Nostrils clear. Oral cavity is moist. Ears reveal no drainage. Neck reveals no JVD, carotid bruits, or thyromegaly. CHEST EXAMINATION: Trachea is central. Symmetrical expansion. Lung ely clear to auscultation and percussion. CARDIAC: Normal S1, S2 with no gallops. No murmurs ABDOMEN: Soft. Bowel sounds diminished. No guarding no rigidity. Distended. No organomegaly. No abdominal bruits. Extremities: reveal no edema. No clubbing or cyanosis Neurologically awake, alert, oriented x3 with well-coordinated movements. No focal deficits noted Skin: No rash or skin lesions. Psychiatric: Coperative. Nonsuicidal Musculoskeletal: No joint swelling or deformity. Normal range of motion. Results CBC & Chem 7: 11/04/18 13:17 11/04/18 13:17 Labs: Abnormal Lab Results - Last 24 Hours (Table) 11/04/18 11/04/18 Range/Units 13:17 16:35 Neutrophils # 7.9 H (1.3-7.7) k/uL Ur Specific [place] >1.050 H (1.001-1.035) Urine Protein Trace H (Negative) Urine Ketones 2+ H (Negative) Thrombosis Risk Factor Assmnt - DVT/VTE Prophylaxis DVT/VTE Prophylaxis: Pharmacologic Prophylaxis ordered - Choose All That Apply Each Risk Factor Represents 2 Points: Age 61-74 years Thrombosis Risk Factor Assessment Total Risk Factor Score: 2 Thrombosis Risk Factor Assessment Level: Low Risk Assessment and Plan Assessment: Abdominal pain and bloating secondary to Acute small bowel obstruction previous history of small bowel obstruction. History of bowel resection in 2012 and laparoscopic lysis of adhesions in 2013. GERD Osteoarthritis COPD Previous history of smoking and asbestos exposure Diverticular disease Spinal stenosis status post fusion surgery GI and DVT prophylaxis with PPI and heparin subcu Plan: Patient will be continued on IV hydration and symptomatic management for nausea. Nothing by mouth. Breathing treatments as needed. Gen. surgery was consulted and further recommendations based on the clinical course. Time with Patient: Greater than 30
[2018-11-04] MEDS: HEPARIN SODIUM,PORCINE 5,000 UNIT/ML 1 ML VIAL SQ SCH (23:58)
[2018-11-05] MEDS: SODIUM CHLORIDE 0.9% 1,000 ML IV SCH ×4 (01:30→21:07)
[2018-11-05] MEDS: SYMBICORT 80-4.5 MCG INHALER INHALATION SCH ×2 (08:04→20:45)
[2018-11-05] MEDS ORDERED: PANTOPRAZOLE 40 MG/10 ML VIAL IV SCH (09:00)
[2018-11-05] MEDS: PANTOPRAZOLE 40 MG/10 ML VIAL IV SCH (09:26)
[2018-11-05] MEDS: HEPARIN SODIUM,PORCINE 5,000 UNIT/ML 1 ML VIAL SQ SCH ×2 (09:28→17:00)
--- NOTE | 2018-11-05 10:31 | P.GSCN ---
History of Present Illness Consult date: 11/05/18 Reason for Consult: Small bowel obstruction History of present illness: This is a 63-year-old male who was admitted to the hospital with complaints of abdominal pain. He is worked up found have possible small bowel obstruction. Patient states he is currently pain through the abdomen. He states his penis etc. 10. Past Medical History Past Medical History: COPD, GERD/Reflux, Osteoarthritis (OA) Additional Past Medical History / Comment(s): NUMEROUS BOWEL OBSTRUCTIONS, ileu s, diverticular disease, hx asbestos exposure. HX OF POLYPS History of Any Multi-Drug Resistant Organisms: None Reported Past Surgical History: Back Surgery, Bowel Resection, Cholecystectomy, Orthopedic Surgery, Tonsillectomy Additional Past Surgical History / Comment(s): COLONOSCOPY, EGD, BOWEL RESECTIONS IN 2012- LYSIS OF ADHESIONS-05/09/14, had spinal stenosis, had fusion done, R knee arthroscopy for torn meniscus. total L knee 2017 Past Anesthesia/Blood Transfusion Reactions: No Reported Reaction Past Psychological History: No Psychological Hx Reported Additional Psychological History / Comment(s): . Smoking Status: Former smoker Past Alcohol Use History: Occasional Additional Past Alcohol Use History / Comment(s): started smoking at age 12 worked up to 3 ppd, quit 1997 Past Drug Use History: None Reported - Past Family History Father Family Medical History: Cancer Additional Family Medical History / Comment(s): at age 64- colon cancer Mother Family Medical History: Hyperlipidemia, Hypertension Additional Family Medical History / Comment(s): Mother at age 78 Medications and Allergies Home Medications Medication Instructions Recorded Confirmed Type Garlic 1 tab PO DAILY 10/12/14 11/04/18 History Lansoprazole 30 mg PO DAILY 10/12/14 11/04/18 History [place]-3 Fatty Acids [[place]-3] 1,000 mg PO DAILY 10/12/14 11/04/18 History Budesonide/Formoterol Fumarate 2 puff INHALATION RT-BID 06/14/15 11/04/18 History [Symbicort 80-4.5 Mcg Inhaler] L.acidoph,Paracasei, B.lactis 1 cap PO DAILY 11/18/16 11/04/18 History [Probiotic] Multivitamins, Thera [Multivitamin 1 tab PO DAILY 11/18/16 11/04/18 History (formulary)] Celecoxib [CeleBREX] 100 mg PO DAILY 11/04/18 11/04/18 History Cholecalciferol (Vitamin D3) 2,000 unit PO DAILY 11/04/18 11/04/18 History [Vitamin D3] Fexofenadine HCl [Kimberly Allergy] 180 mg PO DAILY 11/04/18 11/04/18 History HYDROcodone/APAP 7.5-325MG [[place] 1 tab PO TID 11/04/18 11/04/18 History 7.5-325] Allergies Allergy/AdvReac Type Severity Reaction Status Date / Time No Known Allergies Allergy Verified 11/04/18 16:20 Surgical - Exam Vital Signs Temp Pulse Resp BP Pulse Ox 97.9 F 88 20 151/93 96 11/04/18 12:07 11/04/18 12:07 11/04/18 12:07 11/04/18 12:07 11/04/18 12:07 - General well developed, well nourished, no distress - Eyes PERRL - ENT normal pinna - Neck no masses - Respiratory normal expansion - Cardiovascular Rhythm: regular - Abdomen Mild tenderness throughout. There is no rebound or guarding. Abdomen: soft Results - Labs 11/04/18 13:17 11/04/18 13:17 Abnormal Lab Results - Last 24 Hours (Table) 11/04/18 11/04/18 Range/Units 13:17 16:35 Neutrophils # 7.9 H (1.3-7.7) k/uL Ur Specific [place] >1.050 H (1.001-1.035) Urine Protein Trace H (Negative) Urine Ketones 2+ H (Negative) Diabetes panel 11/04/18 Range/Units 13:17 Sodium 140 (137-145) mmol/L Potassium 4.5 (3.5-5.1) mmol/L Chloride 105 (98-107) mmol/L Carbon Dioxide 24 (22-30) mmol/L BUN 16 (9-20) mg/dL Creatinine 0.93 (0.66-1.25) mg/dL Glucose 87 (74-99) mg/dL Calcium 9.6 (8.4-10.2) mg/dL AST 24 (17-59) U/L ALT 34 (21-72) U/L Alkaline Phosphatase 60 (38-126) U/L Total Protein 7.2 (6.3-8.2) g/dL Albumin 4.2 (3.5-5.0) g/dL Calcium panel 11/04/18 Range/Units 13:17 Calcium 9.6 (8.4-10.2) mg/dL Albumin 4.2 (3.5-5.0) g/dL Pituitary panel 11/04/18 Range/Units 13:17 Sodium 140 (137-145) mmol/L Potassium 4.5 (3.5-5.1) mmol/L Chloride 105 (98-107) mmol/L Carbon Dioxide 24 (22-30) mmol/L BUN 16 (9-20) mg/dL Creatinine 0.93 (0.66-1.25) mg/dL Glucose 87 (74-99) mg/dL Calcium 9.6 (8.4-10.2) mg/dL Adrenal panel 11/04/18 Range/Units 13:17 Sodium 140 (137-145) mmol/L Potassium 4.5 (3.5-5.1) mmol/L Chloride 105 (98-107) mmol/L Carbon Dioxide 24 (22-30) mmol/L BUN 16 (9-20) mg/dL Creatinine 0.93 (0.66-1.25) mg/dL Glucose 87 (74-99) mg/dL Calcium 9.6 (8.4-10.2) mg/dL Total Bilirubin 0.7 (0.2-1.3) mg/dL AST 24 (17-59) U/L ALT 34 (21-72) U/L Alkaline Phosphatase 60 (38-126) U/L Total Protein 7.2 (6.3-8.2) g/dL Albumin 4.2 (3.5-5.0) g/dL Assessment and Plan Assessment: Possible partial small bowel charge. Patient will undergo repeat CAT scan with oral contrast. We will follow with you.
[2018-11-05] MEDS: IOPAMIDOL-300 CONTRAST 30 ML VIAL (ORAL USE) PO PRN ×2 (11:03→12:05)
[2018-11-05] MEDS: HYDROmorphone 1 MG/ML 1 ML SYRINGE IVP PRN ×2 (12:32→16:55)
[2018-11-05] MEDS: ONDANSETRON 4 MG/2 ML VIAL IVP PRN (12:34)
--- NOTE | 2018-11-05 13:15 | CT ---
EXAMINATION TYPE: CT abdomen pelvis wo con DATE OF EXAM: 11/05/2018 COMPARISON: Previous study of yesterday. HISTORY: bowel obstruction CT DLP: 1056 mGycm Automated exposure control for dose reduction was used. FINDINGS: There is persistent dilatation of the small bowel with maximal transverse diameter on today 's examination of 5 cm. The transition point is an area of diffuse thickening of the bowel in the pro ximal to mid ileum best seen on image 61. Oral contrast has been administered and this made it to the distal small bowel but is not seen within the colon. There is a scant amount of free fluid. No free air is seen. There is atelectatic change present at the lung bases. There is a tiny left effusion. The heart is no t enlarged. Within the abdomen, the liver and spleen are normal. The gallbladder is been removed. Both adrenal glands are normal. There is no evidence of hydronephrosis or nephrolithiasis. The pancreas is not well-visualized. There is degenerative disc disease and a vacuum phenomena present at L5-S1 and L4-5. There is severe facet arthropathy at L5-S1 and L4-5. There is mild hypertrophic spondylosis in the lower dorsal spine . IMPRESSION: 1. PERSISTENT SMALL BOWEL OBSTRUCTION WITH TRANSITION POINT IN AN AREA DIFFUSE SMALL BOWEL THICKENING SEEN ON IMAGE 61. 2. TINY LEFT EFFUSION AND A SMALL AMOUNT OF FREE FLUID WITHIN THE PELVIS. 3. DEGENERATIVE CHANGES WITHIN THE SPINE.
[2018-11-05] MEDS ORDERED: ACETAMINOPHEN TAB 325 MG TAB PO PRN (17:31)
--- NOTE | 2018-11-05 19:14 | P.PN ---
Subjective Progress Note Date: 11/05/18 Principal diagnosis: Small bowel obstruction Mr. Pendleton is a 63-year-old male with a past medical history of COPD, GERD, osteoarthritis, multiple bowel obstructions coming into the hospital with a chief complaint of abdominal discomfort and bloating. Patient had a CAT scan of the abdomen showing dilated loops in the mid abdomen which is indicated of small bowel obstruction. Surgical services on board and following the patient. Today patient is lying in bed appears to be no acute discomfort. Patient has an NG tube in place and almost 600 mL of greenish colored discharge that was put out. He still complains of mild abdominal discomfort. He denies having any chest pain, palpitations, cough. No dysuria or hematuria. Patient's medications and labs have been reviewed Objective - Vital Signs Vital signs: Vital Signs Temp 97.5 F L 11/05/18 11:21 Pulse 82 11/05/18 11:21 Resp 16 11/05/18 11:21 BP 128/81 11/05/18 11:21 Pulse Ox 96 11/05/18 11:21 Intake & Output 11/05/18 11/05/18 11/06/18 06:59 18:59 06:59 Intake Total 1100 1000 Balance 1100 1000 Intake: Intake, IV Titration 1100 1000 Amount Sodium Chloride 0.9% 1, 1100 1000 000 ml @ 125 mls/hr IV . Q8H [facility] Rx#:[id number] Other: Voiding Method Toilet # Voids 1 - Exam PHYSICAL EXAMINATION: Patient is lying in the bed comfortably, no acute distress, awake alert and oriented.. CHEST EXAMINATION: Bilateral breath sounds are positive. No wheezes or crackles. CARDIAC: Normal S1, S2 with no gallops. No murmurs ABDOMEN: Soft. Bowel sounds diminished. No guarding no rigidity. Distended. No organomegaly. No abdominal bruits. Extremities: No edema. Neurologically :awake, alert, oriented x3 with well-coordinated movements. No focal deficits noted Skin: No rash or skin lesions. Psychiatric: Coperative. Nonsuicidal - Labs CBC & Chem 7: 11/04/18 13:17 11/04/18 13:17 Assessment and Plan Assessment: ASSESSMENT Abdominal pain and bloating secondary to Acute small bowel obstruction previous history of small bowel obstruction. History of bowel resection in 2012 and laparoscopic lysis of adhesions in 2013. GERD Osteoarthritis COPD Previous history of smoking and asbestos exposure Diverticular disease Spinal stenosis status post fusion surgery GI and DVT prophylaxis with PPI and heparin subcu PLAN: Patient is nothing by mouth. NG tube in place. Patient's home medications have been resumed. General surgery on board following and possibility of him going to the OR tomorrow. Further recommendations depending on the progress of the patient.
[2018-11-05] MEDS ORDERED: PANTOPRAZOLE 40 MG/10 ML VIAL IVP ONE (19:41)
[2018-11-06] MEDS: HYDROmorphone 1 MG/ML 1 ML SYRINGE IVP PRN (00:08)
[2018-11-06] MEDS: HEPARIN SODIUM,PORCINE 5,000 UNIT/ML 1 ML VIAL SQ SCH ×4 (00:08→22:49)
[2018-11-06] MEDS: SODIUM CHLORIDE 0.9% 1,000 ML IV SCH ×2 (04:54→16:21)
[2018-11-06] MEDS: SYMBICORT 80-4.5 MCG INHALER INHALATION SCH ×2 (07:49→20:58)
[2018-11-06] MEDS: PANTOPRAZOLE 40 MG/10 ML VIAL IV SCH (09:06)
--- NOTE | 2018-11-06 12:49 | P.PN ---
Progress Note - Text Progress Note Date: 11/06/18 The patient still has complaints of crampy abdominal pain. His CAT scan was reviewed. There is evidence of small bowel obstruction. There is a transition point in the right lower quadrant. On exam his vital signs are stable. His abdomen is soft. There is mild distention Patient be scheduled for exploratory laparotomy with lysis of adhesion later today.
--- NOTE | 2018-11-06 16:41 | P.PN ---
Subjective Progress Note Date: 11/06/18 Principal diagnosis: Small bowel obstruction Mr. Pendleton is a 63-year-old male with a past medical history of COPD, GERD, osteoarthritis, multiple bowel obstructions coming into the hospital with a chief complaint of abdominal discomfort and bloating. Patient had a CAT scan of the abdomen showing dilated loops in the mid abdomen which is indicated of small bowel obstruction. Surgical services on board and following the patient. On 11/06/18 - patient is lying in his bed. NG tube in place. He has 200-300 mL of greenish colored output. Patient denies passing any flatus. He denies having any chest pain or difficulty in breathing. Patient's medications and labs have been reviewed Objective - Vital Signs Vital signs: Vital Signs Temp 98.3 F 11/06/18 11:22 Pulse 89 11/06/18 11:22 Resp 16 11/06/18 15:19 BP 176/77 11/06/18 11:22 Pulse Ox 95 11/06/18 11:22 Intake & Output 11/05/18 11/06/18 11/06/18 18:59 06:59 18:59 Intake Total 1000 1100 Output Total 1400 300 Balance 1000 -300 -300 Intake: Intake, IV Titration 1000 1100 Amount Sodium Chloride 0.9% 1, 1000 1100 000 ml @ 125 mls/hr IV . Q8H [facility] Rx#:[id number] Output: Gastric Drainage 1400 300 Other: Voiding Method Toilet Toilet # Voids 1 2 - Exam PHYSICAL EXAMINATION: Patient is lying in the bed comfortably, no acute distress, awake alert and oriented.. CHEST EXAMINATION: Bilateral breath sounds are positive. No wheezes or crackles. CARDIAC: Normal S1, S2 with no gallops. No murmurs ABDOMEN: Soft. Bowel sounds diminished. No guarding no rigidity. Distended. No organomegaly. . Extremities: No edema. Neurologically :awake, alert, oriented x3 with well-coordinated movements. No focal deficits noted Skin: No rash or skin lesions. Psychiatric: Coperative. Nonsuicidal - Labs CBC & Chem 7: 11/04/18 13:17 11/04/18 13:17 Assessment and Plan Assessment: ASSESSMENT Abdominal pain and bloating secondary to Acute small bowel obstruction previous history of small bowel obstruction. History of bowel resection in 2012 and laparoscopic lysis of adhesions in 2013. GERD Osteoarthritis COPD Previous history of smoking and asbestos exposure Diverticular disease Spinal stenosis status post fusion surgery GI and DVT prophylaxis with PPI and heparin subcu PLAN: Patient is nothing by mouth. NG tube in place with 300 mL of greenish output. Patient has hypoactive bowel sounds. He is being taken to or for relieving the obstruction. Continue with the current medication regimen. Further recommendations depending on the progress of the patient
[2018-11-06] MEDS ORDERED: ONDANSETRON 4 MG/2 ML VIAL IVP ONE (18:32)
[2018-11-06] MEDS ORDERED: DEXAMETHASONE SOD PHOSPHATE 10 MG/ML 1 ML VIAL IV ONE (18:34)
[2018-11-06] MEDS ORDERED: GLYCOPYRROLATE 0.2 MG/ML 2 ML VIAL ONE (18:37)
[2018-11-06] MEDS ORDERED: NEOSTIGMINE 1 MG/ML 10 ML VIAL ONE (18:37)
[2018-11-06] MEDS ORDERED: HYDROmorphone (PF) 1 MG/ML ONE (18:37)
[2018-11-06] MEDS ORDERED: fentaNYL (PF) 50 MCG/ML 2 ML AMP ONE (18:37)
[2018-11-06] MEDS ORDERED: LIDOCAINE 1% INJ 10MG/ML (20 ML MDV) ONE (18:37)
[2018-11-06] MEDS ORDERED: SUCCINYLCHOLINE CHLORIDE 100 MG/5 ML SYR IV ONE (18:37)
[2018-11-06] MEDS ORDERED: IV FLUID CONTINUATION 1,000 ML IV ONE (18:37)
[2018-11-06] MEDS ORDERED: ROCURONIUM BROMIDE 10 MG/ML 10 ML VIAL IV ONE (18:37)
[2018-11-06] MEDS ORDERED: MIDAZOLAM 2 MG/2 ML VIAL ONE (18:37)
[2018-11-06] MEDS ORDERED: PROPOFOL 10 MG/ML 20 ML VIAL IV ONE (18:37)
[2018-11-06] MEDS ORDERED: KETOROLAC 30 MG/ML 1 ML VIAL ONE (18:37)
[2018-11-06] MEDS ORDERED: ACETAMINOPHEN IV (For NPO) 1,000 MG/100 ML VIAL ONE (18:37)
[2018-11-06] MEDS ORDERED: SODIUM CHLORIDE 0.9% 100 ML with ceFAZolin 2,000 MG IV ONE ×2 (18:51)
[2018-11-06] MEDS ORDERED: LACTATED RINGERS 1,000 ML IV ONE ×4 (19:29→20:00)
[2018-11-06] MEDS ORDERED: LACTATED RINGERS 1,000 ML IV SCH (19:45)
--- NOTE | 2018-11-06 19:46 | P.OP ---
Date of Procedure: 11/06/18 Preoperative Diagnosis: Small bowel obstruction Postoperative Diagnosis: Small bowel obstruction Incisional hernia Procedure(s) Performed: Lysis of adhesions Repair of incisional hernia Anesthesia: MARK ANTHONY Surgeon: Murphy Miner Estimated Blood Loss (ml): 50 Pathology: none sent Condition: stable Disposition: PACU Description of Procedure: The patient's placed on the operating table in the supine position. He received general anesthesia. His abdomen was prepped and draped usual sterile fashion. The abdomen was entered through a low midline incision. The patient a previous scar. There is a small incisional hernia in the lower abdominal scar. The Bookwalter centimeters the wound. Adhesions were lysed. There was extensive adhesions within the abdomen. Approximately 40 minutes of operative time used to lyse adhesions. The adhesions blocking the small bowel seen just in front of the terminal ileum. The terminal ileum was visualized and there was obstructing adhesive band approximately 3 inches from the ileocecal valve. This was lysed. The small bowel had the appearance of a chronic small bowel structure. The intercondylar milked into the colon there was no obstruction seen in the small bowel after the adhesions were lysed. The area was irrigated the fascia was closed with looped #1 PDS suture. The hernia was repaired during fascial closure. The skin was closed minh. Patient top procedure well and sent to recovery room in stable condition.
[2018-11-06] MEDS ORDERED: ACETAMINOPHEN TAB 325 MG TAB PO PRN (19:47)
[2018-11-06] MEDS ORDERED: NALOXONE 0.4 MG/ML 1 ML VIAL IV PRN (19:47)
[2018-11-06] MEDS: HYDROmorphone 1 MG/ML 1 ML SYRINGE IVP ONE ×2 (20:03→20:10)
[2018-11-06] MEDS: KETOROLAC 30 MG/ML 1 ML VIAL IVP SCH (21:10)
[2018-11-07] MEDS: KETOROLAC 30 MG/ML 1 ML VIAL IVP SCH ×4 (02:06→20:08)
[2018-11-07] MEDS: SODIUM CHLORIDE 0.9% 1,000 ML IV SCH ×2 (02:33→10:54)
[2018-11-07] MEDS: PANTOPRAZOLE 40 MG/10 ML VIAL IV SCH (08:53)
[2018-11-07] MEDS: ENOXAPARIN 40 MG/0.4 ML SYRINGE SQ SCH (08:54)
[2018-11-07] MEDS: SYMBICORT 80-4.5 MCG INHALER INHALATION SCH ×2 (09:23→20:37)
[2018-11-07 09:36] LABS: ALT 25 U/L (21-72); AST 25 U/L (17-59); African American GFR (CKD) >90 (>60 ml/min/1.73 sqM); Alkaline Phosphatase 50 U/L (38-126); Anion Gap 12 mmol/L; Blood Urea Nitrogen 10 mg/dL (9-20); Calcium 8.7 mg/dL (8.4-10.2); Carbon Dioxide 18 mmol/L (22-30); Chloride 108 mmol/L (98-107); Glucose 78 mg/dL (74-99); Potassium 4.6 mmol/L (3.5-5.1); Sodium 138 mmol/L (137-145); Total Bilirubin 0.4 mg/dL (0.2-1.3); Total Protein 5.5 g/dL (6.3-8.2)
[2018-11-07 09:46] LABS: Basophils % (A) 0 %; Eosinophils % (A) 0 %; HCT 41.7 % (39.0-53.0); HGB 13.2 gm/dL (13.0-17.5); Lymphocytes # (A) 1.2 k/uL (1.0-4.8); Lymphocytes % (A) 10 %; MCH 28.6 pg (25.0-35.0); MCHC 31.6 g/dL (31.0-37.0); MCV 90.5 fL (80.0-100.0); Mean Platelet Volume 8.6; Monocytes % (A) 8 %; Neutrophils # (A) 10.1 k/uL (1.3-7.7); Neutrophils % (A) 81 %; Platelet Count 382 k/uL (150-450); RDW 14.3 % (11.5-15.5); WBC 12.6 k/uL (3.8-10.6)
[2018-11-07] MEDS ORDERED: LACTATED RINGERS 1,000 ML IV SCH (10:30)
--- NOTE | 2018-11-07 10:33 | P.PN ---
<CarrilloRadha Byron - Last Filed: 11/07/18 10:32> Subjective Progress Note Date: 11/07/18 CHIEF COMPLAINT: Small bowel obstruction HISTORY OF PRESENT ILLNESS: Patient is status post lysis of adhesions and repair of incisional hernia. Patient examined at the bedside. Patient states his pain is tolerable. He denies passing flatus. Denies bowel movement. NG tube to LIS with small amount of bilious output. WBC 12.6 PHYSICAL EXAM: VITAL SIGNS: Reviewed. GENERAL: Well-developed in no acute distress. HEENT: NG tube noted. No sclera icterus. Extraocular movements grossly intact. Moist buccal mucosa. Head is atraumatic, normocephalic. ABDOMEN: Soft. Nondistended. Surgical tenderness. Dressing intact with shadowing present. NEUROLOGIC: Alert and oriented. Cranial nerves II through XII grossly intact. ASSESSMENT: 1. Small bowel obstruction, status post lysis of adhesions and repair of incisional hernia PLAN: 1. Continue NG tube. Await bowel function return 2. Patient may have a few ice chips sparingly 3. Discontinue urinary catheter 4. Activity as tolerated 5. Pain control 6. Wean oxygen as tolerated to maintain o2 sat greater than 92% 7. Incentive spirometry Nurse practitioner note has been reviewed by physician. Signing provider agrees with the documented findings, assessment, and plan of care. Objective - Vital Signs Vital signs: Vital Signs Temp 98.6 F 11/07/18 04:49 Pulse 84 11/07/18 04:49 Resp 16 11/07/18 04:49 BP 147/77 11/07/18 04:49 Pulse Ox 94 L 11/07/18 04:49 Intake & Output 11/06/18 11/07/18 11/07/18 18:59 06:59 18:59 Intake Total 500 1875 Output Total 580 1580 300 Balance -80 295 -300 Intake: IV 500 1000 Intake, IV Titration 875 Amount Lactated Ringers 1,000 ml 375 @ 125 mls/hr IV .Q8H [facility] Rx#:[id number] Sodium Chloride 0.9% 1, 500 000 ml @ 125 mls/hr IV . Q8H [facility] Rx#:[id number] Output: Gastric Drainage 580 280 Urine 1200 300 Uretheral (Bajwa) 700 Estimated Blood Loss 100 Other: Voiding Method Toilet Indwelling Catheter Indwelling Catheter # Voids 2 - Labs CBC & Chem 7: 11/07/18 08:40 11/07/18 08:40 Labs: Abnormal Lab Results - Last 24 Hours (Table) 11/07/18 11/07/18 Range/Units 08:40 08:40 WBC 12.6 H (3.8-10.6) k/uL Neutrophils # 10.1 H (1.3-7.7) k/uL Chloride 108 H (98-107) mmol/L Carbon Dioxide 18 L (22-30) mmol/L Total Protein 5.5 L (6.3-8.2) g/dL Albumin 3.0 L (3.5-5.0) g/dL <Anibal Carrera - Last Filed: 11/07/18 16:18> Subjective As above. Patient having mild discomfort. No flatus. Nasogastric tube remains in place. We will increase activity. Recheck labs tomorrow. Keep nothing by mouth. Objective - Vital Signs Vital signs: Vital Signs Temp 98.2 F 11/07/18 12:02 Pulse 85 11/07/18 12:02 Resp 18 11/07/18 12:02 BP 131/76 11/07/18 12:02 Pulse Ox 96 11/07/18 12:02 Intake & Output 11/06/18 11/07/18 11/07/18 18:59 06:59 18:59 Intake Total 500 1875 762.5 Output Total 580 1580 600 Balance -80 295 162.5 Intake: IV 500 1000 Intake, IV Titration 875 762.5 Amount Lactated Ringers 1,000 ml 200 @ 100 mls/hr IV .Q10H [facility] Rx#:[id number] Lactated Ringers 1,000 ml 375 @ 125 mls/hr IV .Q8H [facility] Rx#:[id number] Sodium Chloride 0.9% 1, 500 562.5 000 ml @ 125 mls/hr IV . Q8H [facility] Rx#:[id number] Output: Gastric Drainage 580 280 Urine 1200 600 Uretheral (Bajwa) 700 Estimated Blood Loss 100 Other: Voiding Method Toilet Indwelling Catheter Indwelling Catheter # Voids 2 - Labs CBC & Chem 7: 11/07/18 08:40 11/07/18 08:40 Labs: Abnormal Lab Results - Last 24 Hours (Table) 11/07/18 11/07/18 Range/Units 08:40 08:40 WBC 12.6 H (3.8-10.6) k/uL Neutrophils # 10.1 H (1.3-7.7) k/uL Chloride 108 H (98-107) mmol/L Carbon Dioxide 18 L (22-30) mmol/L Total Protein 5.5 L (6.3-8.2) g/dL Albumin 3.0 L (3.5-5.0) g/dL
[2018-11-07] MEDS: LACTATED RINGERS 1,000 ML IV SCH ×2 (11:16→20:11)
--- NOTE | 2018-11-07 11:54 | P.PN ---
Subjective Patient sitting at bedside. NG to suction. Abdomen soft negative bowel sounds. Patient encouraged to cough and deep breathe. Complains of incisional pain Objective - Vital Signs Vital signs: Vital Signs Temp 98.6 F 11/07/18 04:49 Pulse 84 11/07/18 04:49 Resp 16 11/07/18 04:49 BP 147/77 11/07/18 04:49 Pulse Ox 94 L 11/07/18 04:49 Intake & Output 11/06/18 11/07/18 11/07/18 18:59 06:59 18:59 Intake Total 500 1875 Output Total 580 1580 300 Balance -80 295 -300 Intake: IV 500 1000 Intake, IV Titration 875 Amount Lactated Ringers 1,000 ml 375 @ 125 mls/hr IV .Q8H [facility] Rx#:[id number] Sodium Chloride 0.9% 1, 500 000 ml @ 125 mls/hr IV . Q8H [facility] Rx#:[id number] Output: Gastric Drainage 580 280 Urine 1200 300 Uretheral (Bajwa) 700 Estimated Blood Loss 100 Other: Voiding Method Toilet Indwelling Catheter Indwelling Catheter # Voids 2 - Constitutional General appearance: Present: mild distress - EENT Eyes: Present: PERRLA Ears: bilateral: normal - Respiratory Respiratory: bilateral: CTA - Cardiovascular Rhythm: regular - Gastrointestinal General gastrointestinal: Present: absent bowel sounds, soft - Integumentary Integumentary: Present: normal - Neurologic Neurologic: Present: CNII-XII intact - Psychiatric Psychiatric: Present: A&O x's 3, appropriate affect, intact judgment & insight - Labs CBC & Chem 7: 11/07/18 08:40 11/07/18 08:40 Labs: Abnormal Lab Results - Last 24 Hours (Table) 11/07/18 11/07/18 Range/Units 08:40 08:40 WBC 12.6 H (3.8-10.6) k/uL Neutrophils # 10.1 H (1.3-7.7) k/uL Chloride 108 H (98-107) mmol/L Carbon Dioxide 18 L (22-30) mmol/L Total Protein 5.5 L (6.3-8.2) g/dL Albumin 3.0 L (3.5-5.0) g/dL - Imaging and Cardiology CT scan - abdomen: report reviewed Assessment and Plan Assessment: Assessment Abdominal pain secondary to small bowel obstruction adhesions Post lysis of adhesions and incisional hernia GERD Osteoarthritis COPD Spinal stenosis post fusion surgery Plan Continue consultation with surgery
[2018-11-08] MEDS: ONDANSETRON 4 MG/2 ML VIAL IVP PRN (01:59)
[2018-11-08] MEDS: KETOROLAC 30 MG/ML 1 ML VIAL IVP SCH ×3 (01:59→13:41)
[2018-11-08] MEDS: LACTATED RINGERS 1,000 ML IV SCH ×2 (05:44→17:38)
[2018-11-08] MEDS: SYMBICORT 80-4.5 MCG INHALER INHALATION SCH ×2 (08:54→20:16)
[2018-11-08] MEDS: ENOXAPARIN 40 MG/0.4 ML SYRINGE SQ SCH (09:22)
[2018-11-08] MEDS: PANTOPRAZOLE 40 MG/10 ML VIAL IV SCH (09:27)
[2018-11-08 09:37] LABS: Basophils % (A) 0 %; Eosinophils # (A) 0.2 k/uL (0-0.7); Eosinophils % (A) 1 %; HCT 42.6 % (39.0-53.0); HGB 13.5 gm/dL (13.0-17.5); Lymphocytes # (A) 1.2 k/uL (1.0-4.8); Lymphocytes % (A) 10 %; MCH 28.7 pg (25.0-35.0); MCHC 31.8 g/dL (31.0-37.0); MCV 90.2 fL (80.0-100.0); Mean Platelet Volume 7.8; Monocytes # (A) 0.9 k/uL (0-1.0); Monocytes % (A) 7 %; Neutrophils # (A) 9.9 k/uL (1.3-7.7); Neutrophils % (A) 81 %; Platelet Count 359 k/uL (150-450); RBC 4.72 m/uL (4.30-5.90); RDW 13.9 % (11.5-15.5); WBC 12.3 k/uL (3.8-10.6)
[2018-11-08 10:01] LABS: African American GFR (CKD) >90 (>60 ml/min/1.73 sqM); Anion Gap 10 mmol/L; Blood Urea Nitrogen 10 mg/dL (9-20); Calcium 8.7 mg/dL (8.4-10.2); Carbon Dioxide 22 mmol/L (22-30); Chloride 106 mmol/L (98-107); Glucose 60 mg/dL (74-99); Sodium 138 mmol/L (137-145)
--- NOTE | 2018-11-08 11:45 | P.PN ---
<CarrilloRadha Byron - Last Filed: 11/08/18 11:43> Subjective Progress Note Date: 11/08/18 CHIEF COMPLAINT: Small bowel obstruction HISTORY OF PRESENT ILLNESS: Patient is status post lysis of adhesions and repair of incisional hernia. POD #2. Patient examined at the bedside. Patient states his pain is tolerable. He denies passing flatus but states "I feel it coming soon". Denies bowel movement. NG tube to LIS with bilious output. WBC 12.3 PHYSICAL EXAM: VITAL SIGNS: Reviewed. GENERAL: Well-developed in no acute distress. HEENT: NG tube noted. No sclera icterus. Extraocular movements grossly intact. Moist buccal mucosa. Head is atraumatic, normocephalic. ABDOMEN: Soft. Nondistended. Surgical tenderness. Dressing intact with shadowing present. NEUROLOGIC: Alert and oriented. Cranial nerves II through XII grossly intact. ASSESSMENT: 1. Small bowel obstruction, status post lysis of adhesions and repair of incisional hernia PLAN: 1. Continue NG tube. Await bowel function return 2. Patient may have a few ice chips sparingly 3. Activity as tolerated 4. Pain control 5. Incentive spirometry Nurse practitioner note has been reviewed by physician. Signing provider agrees with the documented findings, assessment, and plan of care. Objective - Vital Signs Vital signs: Vital Signs Temp 97.8 F 11/08/18 11:19 Pulse 103 H 11/08/18 11:19 Resp 20 11/08/18 11:19 BP 147/84 11/08/18 11:19 Pulse Ox 91 L 11/08/18 11:19 Intake & Output 11/07/18 11/08/18 11/08/18 18:59 06:59 18:59 Intake Total 762.5 1200 Output Total 800 1750 Balance -37.5 -550 Intake: Intake, IV Titration 762.5 1200 Amount Lactated Ringers 1,000 ml 200 1200 @ 100 mls/hr IV .Q10H [facility] Rx#:[id number] Sodium Chloride 0.9% 1, 562.5 000 ml @ 125 mls/hr IV . Q8H [facility] Rx#:[id number] Output: Gastric Drainage 200 250 Urine 600 1500 Other: Voiding Method Indwelling Catheter Urinal - Labs CBC & Chem 7: 11/08/18 08:42 11/08/18 08:42 Labs: Abnormal Lab Results - Last 24 Hours (Table) 11/08/18 11/08/18 Range/Units 08:42 08:42 WBC 12.3 H (3.8-10.6) k/uL Neutrophils # 9.9 H (1.3-7.7) k/uL Glucose 60 L (74-99) mg/dL <Anibal Carrera - Last Filed: 11/08/18 17:07> Subjective As above. Patient doing well. Pain is improved. He is passing large volume of flatus. No bowel movement. Begin clear liquids. Objective - Vital Signs Vital signs: Vital Signs Temp 97.8 F 11/08/18 11:19 Pulse 103 H 11/08/18 11:19 Resp 20 11/08/18 11:19 BP 147/84 11/08/18 11:19 Pulse Ox 91 L 11/08/18 11:19 Intake & Output 11/07/18 11/08/18 11/08/18 18:59 06:59 18:59 Intake Total 762.5 1200 Output Total 800 1750 475 Balance -37.5 -550 -475 Intake: Intake, IV Titration 762.5 1200 Amount Lactated Ringers 1,000 ml 200 1200 @ 100 mls/hr IV .Q10H [facility] Rx#:[id number] Sodium Chloride 0.9% 1, 562.5 000 ml @ 125 mls/hr IV . Q8H [facility] Rx#:[id number] Output: Gastric Drainage 200 250 475 Urine 600 1500 Other: Voiding Method Indwelling Catheter Urinal - Labs CBC & Chem 7: 11/08/18 08:42 11/08/18 08:42 Labs: Abnormal Lab Results - Last 24 Hours (Table) 11/08/18 11/08/18 Range/Units 08:42 08:42 WBC 12.3 H (3.8-10.6) k/uL Neutrophils # 9.9 H (1.3-7.7) k/uL Glucose 60 L (74-99) mg/dL
--- NOTE | 2018-11-08 12:11 | P.PN ---
Subjective Patient states he been ambulating without difficulty. In chair at bedside on interview. States abdominal pain improved. Noted positive bowel sounds. Continues with NG Objective - Vital Signs Vital signs: Vital Signs Temp 97.8 F 11/08/18 11:19 Pulse 103 H 11/08/18 11:19 Resp 20 11/08/18 11:19 BP 147/84 11/08/18 11:19 Pulse Ox 91 L 11/08/18 11:19 Intake & Output 11/07/18 11/08/18 11/08/18 18:59 06:59 18:59 Intake Total 762.5 1200 Output Total 800 1750 Balance -37.5 -550 Intake: Intake, IV Titration 762.5 1200 Amount Lactated Ringers 1,000 ml 200 1200 @ 100 mls/hr IV .Q10H [facility] Rx#:[id number] Sodium Chloride 0.9% 1, 562.5 000 ml @ 125 mls/hr IV . Q8H [facility] Rx#:[id number] Output: Gastric Drainage 200 250 Urine 600 1500 Other: Voiding Method Indwelling Catheter Urinal - Constitutional General appearance: Present: mild distress - EENT EENT Comment(s): NG to suction placed Eyes: Present: PERRLA Ears: bilateral: normal - Neck Neck: Present: normal ROM - Respiratory Respiratory: bilateral: CTA - Cardiovascular Rhythm: regular - Gastrointestinal General gastrointestinal: Present: decreased bowel sounds, soft - Integumentary Integumentary: Present: normal - Neurologic Neurologic: Present: CNII-XII intact - Musculoskeletal Musculoskeletal: Present: gait normal - Psychiatric Psychiatric: Present: A&O x's 3, appropriate affect, intact judgment & insight - Labs CBC & Chem 7: 11/08/18 08:42 11/08/18 08:42 Labs: Abnormal Lab Results - Last 24 Hours (Table) 11/08/18 11/08/18 Range/Units 08:42 08:42 WBC 12.3 H (3.8-10.6) k/uL Neutrophils # 9.9 H (1.3-7.7) k/uL Glucose 60 L (74-99) mg/dL Assessment and Plan Plan: Assessment Small bowel obstruction post lysis of adhesions incisional hernia repair GERD Osteoarthritis History of COPD stable History of spinal stenosis with fusion surgery Plan Continue with surgery consultation NG to be removed after patient passing gas continues to be nothing by mouth
[2018-11-09] MEDS ORDERED: HYDROmorphone 1 MG/ML 1 ML SYRINGE ONE (00:25)
[2018-11-09] MEDS ORDERED: LACTATED RINGERS 1,000 ML BAG IV ONE (00:25)
[2018-11-09] MEDS: LACTATED RINGERS 1,000 ML IV SCH ×3 (04:38→19:22)
[2018-11-09] MEDS: HYDROmorphone 1 MG/ML 1 ML SYRINGE IVP PRN ×2 (06:07→12:45)
[2018-11-09 07:23] LABS: Basophils % (A) 0 %; Eosinophils # (A) 0.2 k/uL (0-0.7); Eosinophils % (A) 2 %; HCT 42.4 % (39.0-53.0); HGB 13.4 gm/dL (13.0-17.5); Lymphocytes # (A) 1.2 k/uL (1.0-4.8); Lymphocytes % (A) 11 %; MCH 28.4 pg (25.0-35.0); MCHC 31.7 g/dL (31.0-37.0); MCV 89.5 fL (80.0-100.0); Mean Platelet Volume 7.5; Monocytes # (A) 0.7 k/uL (0-1.0); Monocytes % (A) 7 %; Neutrophils # (A) 8.3 k/uL (1.3-7.7); Neutrophils % (A) 78 %; Platelet Count 382 k/uL (150-450); RBC 4.73 m/uL (4.30-5.90); RDW 13.7 % (11.5-15.5); WBC 10.6 k/uL (3.8-10.6)
[2018-11-09 07:40] LABS: African American GFR (CKD) >90 (>60 ml/min/1.73 sqM); Anion Gap 10 mmol/L; Blood Urea Nitrogen 10 mg/dL (9-20); Calcium 8.7 mg/dL (8.4-10.2); Carbon Dioxide 24 mmol/L (22-30); Chloride 105 mmol/L (98-107); Glucose 101 mg/dL (74-99); Potassium 3.7 mmol/L (3.5-5.1); Sodium 139 mmol/L (137-145)
[2018-11-09] MEDS: PANTOPRAZOLE 40 MG/10 ML VIAL IV SCH (07:48)
[2018-11-09] MEDS: SYMBICORT 80-4.5 MCG INHALER INHALATION SCH ×2 (08:01→20:16)
[2018-11-09] MEDS: ENOXAPARIN 40 MG/0.4 ML SYRINGE SQ SCH (09:03)
--- NOTE | 2018-11-09 10:53 | P.PN ---
<Radha Carrillo Byron - Last Filed: 11/09/18 10:50> Subjective Progress Note Date: 11/09/18 CHIEF COMPLAINT: Small bowel obstruction HISTORY OF PRESENT ILLNESS: Patient is status post lysis of adhesions and repair of incisional hernia. POD #3. Patient examined at the bedside. Patient states his pain is tolerable. Patient is passing flatus. Denies BM. NG tube removed yesterday. Tolerating clear liquid diet. WBC 10.6. Hemoglobin 13.4. Afebrile. PHYSICAL EXAM: VITAL SIGNS: Reviewed. GENERAL: Well-developed in no acute distress. HEENT: No sclera icterus. Extraocular movements grossly intact. Moist buccal mucosa. Head is atraumatic, normocephalic. ABDOMEN: Soft. Nondistended. Surgical tenderness. Dressing intact. Abdominal binder intact. Positive bowel sounds. NEUROLOGIC: Alert and oriented. Cranial nerves II through XII grossly intact. ASSESSMENT: 1. Small bowel obstruction, status post lysis of adhesions and repair of incisional hernia PLAN: 1. Continue clear liquid diet. Will advance diet when patient has BM 2. Activity as tolerated 3. Pain control 4. Incentive spirometry Nurse practitioner note has been reviewed by physician. Signing provider agrees with the documented findings, assessment, and plan of care. Objective - Vital Signs Vital signs: Vital Signs Temp 98.0 F 11/09/18 09:07 Pulse 93 11/09/18 09:07 Resp 18 11/09/18 09:07 BP 133/56 11/09/18 09:07 Pulse Ox 94 L 11/09/18 05:00 Intake & Output 11/08/18 11/09/18 11/09/18 18:59 06:59 18:59 Intake Total 1440 Output Total 475 Balance -475 1440 Intake: Intake, IV Titration 600 Amount Lactated Ringers 1,000 ml 600 @ 100 mls/hr IV .Q10H [facility] Rx#:[id number] Oral 840 Output: Gastric Drainage 475 - Labs CBC & Chem 7: 11/09/18 06:52 11/09/18 06:52 Labs: Abnormal Lab Results - Last 24 Hours (Table) 11/09/18 11/09/18 Range/Units 06:52 06:52 Neutrophils # 8.3 H (1.3-7.7) k/uL Creatinine 0.62 L (0.66-1.25) mg/dL Glucose 101 H (74-99) mg/dL <Anibal Carrera - Last Filed: 11/09/18 20:41> Subjective As above. Has had flatus. Still feeling somewhat nauseated. Continue clear liquids only. Ambulate. Objective - Vital Signs Vital signs: Vital Signs Temp 97.5 F L 11/09/18 13:00 Pulse 92 11/09/18 13:00 Resp 18 11/09/18 20:09 BP 157/90 11/09/18 13:00 Pulse Ox 94 L 11/09/18 13:00 Intake & Output 11/09/18 11/09/18 11/10/18 06:59 18:59 06:59 Intake Total 1440 1040 120 Balance 1440 1040 120 Weight 102.058 kg Intake: Intake, IV Titration 600 800 Amount Lactated Ringers 1,000 ml 600 800 @ 100 mls/hr IV .Q10H [facility] Rx#:[id number] Oral 840 240 120 Other: Voiding Method Urinal - Labs CBC & Chem 7: 11/09/18 06:52 11/09/18 06:52 Labs: Abnormal Lab Results - Last 24 Hours (Table) 11/09/18 11/09/18 Range/Units 06:52 06:52 Neutrophils # 8.3 H (1.3-7.7) k/uL Creatinine 0.62 L (0.66-1.25) mg/dL Glucose 101 H (74-99) mg/dL
[2018-11-09] MEDS: ONDANSETRON 4 MG/2 ML VIAL IVP PRN ×2 (12:44→18:00)
[2018-11-09] MEDS ORDERED: FAMOTIDINE 20 MG/2 ML VIAL IV ONE (19:00)
[2018-11-09] MEDS ORDERED: TEMAZEPAM 15 MG CAP PO PRN (21:38)
--- NOTE | 2018-11-10 00:14 | P.PN ---
Subjective Progress Note Date: 11/09/18 Principal diagnosis: Acute small bowel obstruction Patient is a 63-year-old male with a known history of multiple bowel obstructions, ileus, COPD, GERD and osteoarthritis came to ER with complaints of abdominal discomfort and bloating and pain. Mainly in the upper abdomen. Raven feliciano has been having worsening symptoms since 11/01/2018. Patient did have nausea or so vomiting. Patient also having minimal diarrhea since last night and this morning. Patient denied any recent illnesses. No Recent symptoms of gastroenteritis. No history of IBS. Last small bowel obstruction about 2 years ago and had laparoscopic lysis of adhesions at the time. Patient came to the hospital for further evaluation. CT abdomen. Showed dilation of the bowel loops in the mid abdomen with tapering more distally could be indicative of small bowel obstruction. Laboratory data reviewed. 11/09/2018 Patient is status post lysis of adhesions and repair of incisional hernia. Patient is tolerating liquid diet. Otherwise patient is unable to pass gas no bowel movement yet. No nausea vomiting. Mild abdominal discomfort is present. No ulcers or vomiting. General surgery is following. No fever no chills. Current medications reviewed. Objective - Vital Signs Vital signs: Vital Signs Temp 98.0 F 11/09/18 09:07 Pulse 93 11/09/18 09:07 Resp 18 11/09/18 09:07 BP 133/56 11/09/18 09:07 Pulse Ox 94 L 11/09/18 05:00 Intake & Output 11/08/18 11/09/18 11/09/18 18:59 06:59 18:59 Intake Total 1440 Output Total 475 Balance -475 1440 Intake: Intake, IV Titration 600 Amount Lactated Ringers 1,000 ml 600 @ 100 mls/hr IV .Q10H [facility] Rx#:[id number] Oral 840 Output: Gastric Drainage 475 - Exam PHYSICAL EXAMINATION: Patient is lying in the bed comfortably, no acute distress, awake alert and oriented.. HEENT: Normocephalic. Neck is supple. Pupils reactive. Nostrils clear. Oral cavity is moist. Ears reveal no drainage. Neck reveals no JVD, carotid bruits, or thyromegaly. CHEST EXAMINATION: Trachea is central. Symmetrical expansion. Lung ely clear to auscultation and percussion. CARDIAC: Normal S1, S2 with no gallops. No murmurs ABDOMEN: Soft. Distended. Bowel sounds present. No organomegaly. No abdominal bruits. Extremities: reveal no edema. No clubbing or cyanosis Neurologically awake, alert, oriented x3 with well-coordinated movements. No focal deficits noted Skin: No rash or skin lesions. Psychiatric: Coperative. Nonsuicidal Musculoskeletal: No joint swelling or deformity. Normal range of motion. - Labs CBC & Chem 7: 11/09/18 06:52 11/09/18 06:52 Labs: Abnormal Lab Results - Last 24 Hours (Table) 11/09/18 11/09/18 Range/Units 06:52 06:52 Neutrophils # 8.3 H (1.3-7.7) k/uL Creatinine 0.62 L (0.66-1.25) mg/dL Glucose 101 H (74-99) mg/dL Assessment and Plan Assessment: Abdominal pain and bloating secondary to Acute small bowel obstruction. Status post lysis of adhesions and repair of incisional hernia. previous history of small bowel obstruction. History of bowel resection in 2012 and laparoscopic lysis of adhesions in 2013. GERD Osteoarthritis COPD Previous history of smoking and asbestos exposure Diverticular disease Spinal stenosis status post fusion surgery GI and DVT prophylaxis with PPI and heparin subcu Plan: Patient will be continued on IV hydration and symptomatic management for nausea. Liquid diet.. Breathing treatments as needed. Gen. surgery was consulted and further recommendations based on the clinical course. Time with Patient: Greater than 30
[2018-11-10] MEDS: SYMBICORT 80-4.5 MCG INHALER INHALATION SCH ×2 (07:34→19:46)
[2018-11-10 08:53] LABS: Basophils % (A) 0 %; Eosinophils # (A) 0.4 k/uL (0-0.7); Eosinophils % (A) 4 %; HGB 13.1 gm/dL (13.0-17.5); Lymphocytes # (A) 1.3 k/uL (1.0-4.8); Lymphocytes % (A) 12 %; MCH 28.3 pg (25.0-35.0); MCHC 31.3 g/dL (31.0-37.0); MCV 90.6 fL (80.0-100.0); Mean Platelet Volume 8.5; Monocytes # (A) 0.8 k/uL (0-1.0); Monocytes % (A) 7 %; Neutrophils # (A) 8.3 k/uL (1.3-7.7); Neutrophils % (A) 76 %; Platelet Count 446 k/uL (150-450); RBC 4.64 m/uL (4.30-5.90); RDW 13.7 % (11.5-15.5)
[2018-11-10 09:06] LABS: African American GFR (CKD) >90 (>60 ml/min/1.73 sqM); Anion Gap 7 mmol/L; Blood Urea Nitrogen 8 mg/dL (9-20); Calcium 8.4 mg/dL (8.4-10.2); Carbon Dioxide 29 mmol/L (22-30); Chloride 103 mmol/L (98-107); Glucose 84 mg/dL (74-99); Potassium 3.8 mmol/L (3.5-5.1); Sodium 139 mmol/L (137-145)
[2018-11-10] MEDS: ENOXAPARIN 40 MG/0.4 ML SYRINGE SQ SCH (10:13)
[2018-11-10] MEDS: PANTOPRAZOLE 40 MG/10 ML VIAL IV SCH (10:13)
[2018-11-10] MEDS: HYDROmorphone 1 MG/ML 1 ML SYRINGE IVP PRN (10:14)
[2018-11-10] MEDS: ONDANSETRON 4 MG/2 ML VIAL IVP PRN (10:15)
[2018-11-10] MEDS ORDERED: BISACODYL 10 MG SUPP RECTAL STA (10:22)
--- NOTE | 2018-11-10 11:26 | P.PN ---
<Radha Carrillo - Last Filed: 11/10/18 11:24> Subjective Progress Note Date: 11/10/18 CHIEF COMPLAINT: Small bowel obstruction HISTORY OF PRESENT ILLNESS: Patient is status post lysis of adhesions and repair of incisional hernia. POD #4. Patient examined at the bedside. Patient states his pain is tolerable. Patient is passing flatus. Denies BM. He reports feeling nauseous last night but it is improved this morning. No emesis. Tolerating clear liquids. PHYSICAL EXAM: VITAL SIGNS: Reviewed. GENERAL: Well-developed in no acute distress. HEENT: No sclera icterus. Extraocular movements grossly intact. Moist buccal mucosa. Head is atraumatic, normocephalic. ABDOMEN: Soft. Nondistended. Surgical tenderness. Dressing intact. Abdominal binder intact. Positive bowel sounds. NEUROLOGIC: Alert and oriented. Cranial nerves II through XII grossly intact. ASSESSMENT: 1. Small bowel obstruction, status post lysis of adhesions and repair of incisional hernia PLAN: 1. Continue clear liquid diet. Will advance diet when patient has BM 2. Activity as tolerated. Patient encouraged to ambulate in the halls 3. Pain control 4. Incentive spirometry 5. Dulcolax x 1. Reglan 10mg IV q6 hours 6. Continue Zofran PRN for nausea. No NG tube unless nausea worsens or patient begins vomiting Nurse practitioner note has been reviewed by physician. Signing provider agrees with the documented findings, assessment, and plan of care. Objective - Vital Signs Vital signs: Vital Signs Temp 98.4 F 11/10/18 05:00 Pulse 103 H 11/10/18 05:00 Resp 16 11/10/18 00:00 BP 140/97 11/10/18 05:00 Pulse Ox 93 L 11/10/18 05:00 Intake & Output 11/09/18 11/10/18 11/10/18 18:59 06:59 18:59 Intake Total 1040 1330 Balance 1040 1330 Weight 102.058 kg Intake: Intake, IV Titration 800 500 Amount Lactated Ringers 1,000 ml 800 500 @ 100 mls/hr IV .Q10H [facility] Rx#:[id number] Oral 240 830 Other: Voiding Method Urinal # Voids 1 - Labs CBC & Chem 7: 11/10/18 07:06 11/10/18 07:06 Labs: Abnormal Lab Results - Last 24 Hours (Table) 11/10/18 11/10/18 Range/Units 07:06 07:06 WBC 11.0 H (3.8-10.6) k/uL Neutrophils # 8.3 H (1.3-7.7) k/uL BUN 8 L (9-20) mg/dL Creatinine 0.59 L (0.66-1.25) mg/dL <Anibal Carrera - Last Filed: 11/10/18 15:31> Subjective As above. Patient has now had multiple bowel movements he states. No nausea or vomiting currently. Would like to try more to eat. Will advance to full liquid diet for dinner. Patient will take sparingly. Hopefully discharge tomorrow. Objective - Vital Signs Vital signs: Vital Signs Temp 98 F 11/10/18 11:41 Pulse 95 11/10/18 13:11 Resp 20 11/10/18 13:11 BP 120/77 11/10/18 11:41 Pulse Ox 100 11/10/18 11:41 Intake & Output 11/09/18 11/10/18 11/10/18 18:59 06:59 18:59 Intake Total 1040 1330 800 Balance 1040 1330 800 Weight 102.058 kg Intake: Intake, IV Titration 800 500 800 Amount Lactated Ringers 1,000 ml 800 500 800 @ 100 mls/hr IV .Q10H [facility] Rx#:[id number] Oral 240 830 Other: Voiding Method Urinal Urinal # Voids 1 - Labs CBC & Chem 7: 11/10/18 07:06 11/10/18 07:06 Labs: Abnormal Lab Results - Last 24 Hours (Table) 11/10/18 11/10/18 Range/Units 07:06 07:06 WBC 11.0 H (3.8-10.6) k/uL Neutrophils # 8.3 H (1.3-7.7) k/uL BUN 8 L (9-20) mg/dL Creatinine 0.59 L (0.66-1.25) mg/dL
[2018-11-10] MEDS: METOCLOPRAMIDE 5 MG/ML 2 ML VIAL IVP SCH ×2 (13:35→18:13)
[2018-11-10] MEDS: LACTATED RINGERS 1,000 ML IV SCH (18:13)
[2018-11-11] MEDS: METOCLOPRAMIDE 5 MG/ML 2 ML VIAL IVP SCH ×3 (01:09→11:39)
[2018-11-11] MEDS: LACTATED RINGERS 1,000 ML IV SCH ×2 (01:09→11:40)
--- NOTE | 2018-11-11 02:04 | P.PN ---
Subjective Progress Note Date: 11/10/18 Principal diagnosis: Acute small bowel obstruction Patient is a 63-year-old male with a known history of multiple bowel obstructions, ileus, COPD, GERD and osteoarthritis came to ER with complaints of abdominal discomfort and bloating and pain. Mainly in the upper abdomen. Raven feliciano has been having worsening symptoms since 11/01/2018. Patient did have nausea or so vomiting. Patient also having minimal diarrhea since last night and this morning. Patient denied any recent illnesses. No Recent symptoms of gastroenteritis. No history of IBS. Last small bowel obstruction about 2 years ago and had laparoscopic lysis of adhesions at the time. Patient came to the hospital for further evaluation. CT abdomen. Showed dilation of the bowel loops in the mid abdomen with tapering more distally could be indicative of small bowel obstruction. Laboratory data reviewed. 11/09/2018 Patient is status post lysis of adhesions and repair of incisional hernia. Patient is tolerating liquid diet. Otherwise patient is unable to pass gas no bowel movement yet. No nausea vomiting. Mild abdominal discomfort is present. No ulcers or vomiting. General surgery is following. No fever no chills. 11/10/2018 Patient denied any complains of abdominal pain today. Improved now. Patient did have bowel movement and is passing flatness. Tolerating liquid diet and will be advanced as tolerated. General surgery is on board. Anticipate discharge in next 24 hours with more clinical improvement. Current medications reviewed. Objective - Vital Signs Vital signs: Vital Signs Temp 98 F 11/10/18 11:41 Pulse 95 11/10/18 13:11 Resp 20 11/10/18 13:11 BP 120/77 11/10/18 11:41 Pulse Ox 100 11/10/18 11:41 Intake & Output 11/09/18 11/10/18 11/10/18 18:59 06:59 18:59 Intake Total 1040 1330 800 Balance 1040 1330 800 Weight 102.058 kg Intake: Intake, IV Titration 800 500 800 Amount Lactated Ringers 1,000 ml 800 500 800 @ 100 mls/hr IV .Q10H [facility] Rx#:[id number] Oral 240 830 Other: Voiding Method Urinal Urinal # Voids 1 - Exam PHYSICAL EXAMINATION: Patient is lying in the bed comfortably, no acute distress, awake alert and oriented.. HEENT: Normocephalic. Neck is supple. Pupils reactive. Nostrils clear. Oral cavity is moist. Ears reveal no drainage. Neck reveals no JVD, carotid bruits, or thyromegaly. CHEST EXAMINATION: Trachea is central. Symmetrical expansion. Lung ely clear to auscultation and percussion. CARDIAC: Normal S1, S2 with no gallops. No murmurs ABDOMEN: Soft. Distended. Bowel sounds present. No organomegaly. No abdominal bruits. Extremities: reveal no edema. No clubbing or cyanosis Neurologically awake, alert, oriented x3 with well-coordinated movements. No focal deficits noted Skin: No rash or skin lesions. Psychiatric: Coperative. Nonsuicidal Musculoskeletal: No joint swelling or deformity. Normal range of motion. - Labs CBC & Chem 7: 11/10/18 07:06 11/10/18 07:06 Labs: Abnormal Lab Results - Last 24 Hours (Table) 11/10/18 11/10/18 Range/Units 07:06 07:06 WBC 11.0 H (3.8-10.6) k/uL Neutrophils # 8.3 H (1.3-7.7) k/uL BUN 8 L (9-20) mg/dL Creatinine 0.59 L (0.66-1.25) mg/dL Assessment and Plan Assessment: Abdominal pain and bloating secondary to Acute small bowel obstruction. Status post lysis of adhesions and repair of incisional hernia. previous history of small bowel obstruction. History of bowel resection in 2012 and laparoscopic lysis of adhesions in 2013. GERD Osteoarthritis COPD Previous history of smoking and asbestos exposure Diverticular disease Spinal stenosis status post fusion surgery GI and DVT prophylaxis with PPI and heparin subcu Plan: Patient will be continued on IV hydration and symptomatic management for nausea. Liquid diet.. Breathing treatments as needed. Gen. surgery was consulted and further recommendations based on the clinical course. Time with Patient: Greater than 30
[2018-11-11] MEDS: SYMBICORT 80-4.5 MCG INHALER INHALATION SCH (08:46)
[2018-11-11] MEDS: PANTOPRAZOLE 40 MG/10 ML VIAL IV SCH (09:18)
[2018-11-11] MEDS: ENOXAPARIN 40 MG/0.4 ML SYRINGE SQ SCH (09:18)
--- NOTE | 2018-11-11 09:58 | P.PN ---
<Radha Carrillo - Last Filed: 11/11/18 09:55> Subjective Progress Note Date: 11/11/18 CHIEF COMPLAINT: Small bowel obstruction HISTORY OF PRESENT ILLNESS: Patient is status post lysis of adhesions and repair of incisional hernia. POD #5. Patient examined at the bedside. Patient denies abdominal pain. Patient reports having bowel movements yesterday and this morning. He is tolerating full liquid diet. WBC 11.0. Vital signs stable. Afebrile. PHYSICAL EXAM: VITAL SIGNS: Reviewed. GENERAL: Well-developed in no acute distress. HEENT: No sclera icterus. Extraocular movements grossly intact. Moist buccal mucosa. Head is atraumatic, normocephalic. ABDOMEN: Soft. Nondistended. Surgical tenderness. Dressing intact. Abdominal binder intact. Positive bowel sounds. NEUROLOGIC: Alert and oriented. Cranial nerves II through XII grossly intact. ASSESSMENT: 1. Small bowel obstruction, status post lysis of adhesions and repair of incisional hernia PLAN: Continue full liquid diet per patient request. Patient's pain is controlled with oral Tylenol. Patient states he does not require prescription for narcotics at discharge and will manage his pain with plain Tylenol. Patient is stable for discharge home today. He is to follow up with Dr. Miner in one week. Nurse practitioner note has been reviewed by physician. Signing provider agrees with the documented findings, assessment, and plan of care. Objective - Vital Signs Vital signs: Vital Signs Temp 98.3 F 11/11/18 04:37 Pulse 90 11/11/18 04:37 Resp 18 11/11/18 04:37 BP 137/90 11/11/18 04:37 Pulse Ox 94 L 11/11/18 04:37 Intake & Output 11/10/18 11/11/18 11/11/18 18:59 06:59 18:59 Intake Total 800 800 Balance 800 800 Intake: Intake, IV Titration 800 800 Amount Lactated Ringers 1,000 ml 800 800 @ 100 mls/hr IV .Q10H [facility] Rx#:[id number] Other: Voiding Method Urinal Toilet # Voids 1 1 # Bowel Movements 2 - Labs CBC & Chem 7: 11/10/18 07:06 11/10/18 07:06 <Anibal Carrera - Last Filed: 11/11/18 15:23> Subjective As above. Patient doing well. Tolerating diet. Good bowel function. Will discharge today. Objective - Vital Signs Vital signs: Vital Signs Temp 98 F 11/11/18 12:06 Pulse 73 11/11/18 12:06 Resp 20 11/11/18 12:06 BP 128/83 11/11/18 12:06 Pulse Ox 97 11/11/18 12:06 Intake & Output 11/10/18 11/11/18 11/11/18 18:59 06:59 18:59 Intake Total 800 800 600 Balance 800 800 600 Weight 102.058 kg Intake: Intake, IV Titration 800 800 600 Amount Lactated Ringers 1,000 ml 800 800 600 @ 100 mls/hr IV .Q10H [facility] Rx#:[id number] Other: Voiding Method Urinal Toilet Toilet # Voids 1 1 # Bowel Movements 1 - Labs CBC & Chem 7: 11/10/18 07:06 11/10/18 07:06
[2018-11-11 12:07] VITALS: BP 128/83; PULSE 73; RESP 20; TEMP 98
== END 2018-11-11 16:05 | disposition home or self-care (01) | DRG 337 ==
LOC: EC 12:05 → 3NMEDONC 16:13
PROVIDERS: ADMIT Family Medicine; ATTEND Family Medicine
PROC: 0DNW0ZZ Release Peritoneum, Open Approach (ICD-10-PCS; principal; 2018-11-04)
PROC: 0WQF0ZZ Repair Abdominal Wall, Open Approach (ICD-10-PCS; 2018-11-04)
DX: K56.50 Intestinal adhesions [bands], unspecified as to partial versus complete obstruction (principal); J44.9 Chronic obstructive pulmonary disease, unspecified; K21.9 Gastro-esophageal reflux disease without esophagitis; K43.2 Incisional hernia without obstruction or gangrene; K57.90 Diverticulosis of intestine, part unspecified, without perforation or abscess without bleeding; M19.90 Unspecified osteoarthritis, unspecified site; Z77.090 Contact with and (suspected) exposure to asbestos; Z79.1 Long term (current) use of non-steroidal anti-inflammatories (NSAID); Z79.51 Long term (current) use of inhaled steroids; Z79.82 Long term (current) use of aspirin; Z79.899 Other long term (current) drug therapy; Z86.010 Personal history of colon polyps; Z87.891 Personal history of nicotine dependence; Z90.49 Acquired absence of other specified parts of digestive tract; Z98.1 Arthrodesis status; Z80.0 Family history of malignant neoplasm of digestive organs; Z82.49 Family history of ischemic heart disease and other diseases of the circulatory system
CPT/HCPCS: 36415; 74176; 74177; 80048; 80053; 81003; 82150; 83690; 85025; 85610; 85730; 94640; 94760; 96361; 96374; 96375; 99285

== ENCOUNTER → 2019-01-18 | Outpatient (CLI) | payer MEDICAID ==
--- NOTE | 2019-01-18 15:51 | XR ---
"EXAMINATION TYPE: XR abdomen acute w cxr DATE OF EXAM: 01/18/2019 COMPARISON: NONE HISTORY: Pain TECHNIQUE: Frontal view of the chest and 3 views of the abdomen are obtained. FINDINGS: Pleural plaque noted involving the left lung base. Surgical clips right upper quadrant. Sco liosis and degenerative changes noted of the spine. Bowel gas pattern nonspecific. There is a single prominent bowel loop in the mid and area seen within the colon. Subsegmental changes involving the lungs with no overt failure or pneumothorax. Arthropathy of the hi ps. IMPRESSION: Nonspecific abdomen. There is a prominent single bowel loop in the midabdomen which could be related to a sentinel loop or localized ileus. Air is seen throughout the colon. Overall pattern is nonspecif ic. Partial obstructive pattern not entirely excluded correlate clinically. Correlate for asbestos related disease. A [place] level critical message alert has been initiated for Uriel Pendleton MD via the [facility] [facility] [employer] 36 0 | Critical Results System on 01/18/2019 3:47 PM. This message alert has been sent to Uriel Pendleton MD via the preferences provided by the clinician for the receipt of Radiology Critical Findings. Clixtr age ID [id number]."
== END | disposition home or self-care (01) ==
LOC: RADXRMAIN 14:23
PROVIDERS: ATTEND Family Medicine
DX: K56.2 Volvulus (principal)
CPT/HCPCS: 74022

== ENCOUNTER → 2019-03-31 | Outpatient (CLI) | payer MEDICAID ==
--- NOTE | 2019-03-31 13:10 | XR ---
EXAMINATION TYPE: XR abdomen acute w cxr DATE OF EXAM: 03/31/2019 COMPARISON: NONE HISTORY: Pain TECHNIQUE: Single view of the chest and 2 views of the abdomen are submitted. FINDINGS: Single view of the chest fails demonstrate evidence for acute pulmonary disease. Calcified pleural p laque left lower lobe. There is no evidence for pneumoperitoneum. There are a few scattered air-fluid level seen small in size. Wall thickening distal ileum may reflec t enteritis. Correlate clinically. No unusual calcifications. Post cystectomy clips are in place. IMPRESSION: 1. Nonspecific nonobstructive bowel gas pattern.
== END | disposition home or self-care (01) ==
LOC: RADXRMAIN 12:33
PROVIDERS: ATTEND Family Medicine
DX: R10.9 Unspecified abdominal pain (principal)
CPT/HCPCS: 74022

== ENCOUNTER → 2019-07-07 | Outpatient (CLI) | payer MEDICAID ==
--- NOTE | 2019-07-07 14:41 | XR ---
2 view abdomen HISTORY: Mechanical ileus 2 views of the abdomen on 4 images correlated to prior abdomen 03/31/2019, CT 11/05/2018 surgical clips present in the pelvis. Degenerative disc changes are present in the visualized spine i s a levoscoliosis. Surgical clips present right upper quadrant. There is calcification along the left hemidiaphragm. There are air-fluid levels without bowel distention. impression: Correlate for ileus, enteritis, follow-up as indicated.
== END | disposition home or self-care (01) ==
LOC: RADXRMAIN 14:06
PROVIDERS: ATTEND Family Medicine
DX: K56.699 Other intestinal obstruction unspecified as to partial versus complete obstruction (principal)
CPT/HCPCS: 74019

== ENCOUNTER → 2019-08-03 | Outpatient (CLI) | payer MEDICAID ==
--- NOTE | 2019-08-03 11:23 | XR ---
EXAMINATION TYPE: XR chest 2V DATE OF EXAM: 08/03/2019 COMPARISON: Prior chest x-ray dated 10/18/2018, 03/31/[address] 11/18/2016 HISTORY: Pleural plaque, asbestos exposure TECHNIQUE: Frontal and lateral views of the chest are obtained. FINDINGS: Calcification along the left pleural diaphragmatic margin, blunting of the left costophren ic angle. Cardiac mediastinal silhouette, pulmonary vascularity and shravan are stable. No evident airsp yulia disease, pneumothorax, or pleural effusion. Prominent lung volume may be indicative of underlying COPD, there is underlying emphysema. Suspect coronary artery calcifications are present. Aorta is de nse. IMPRESSION: Stable findings could be related to asbestos related disease, correlate.
== END | disposition home or self-care (01) ==
LOC: RADXRMAIN 09:54
PROVIDERS: ATTEND Family Medicine
DX: J92.0 Pleural plaque with presence of asbestos (principal)
CPT/HCPCS: 71046

== ENCOUNTER → 2020-04-16 | Outpatient (CLI) | payer MEDICAID ==
--- NOTE | 2020-04-16 14:10 | XR ---
EXAMINATION TYPE: XR chest 2V DATE OF EXAM: 04/16/2020 COMPARISON: Prior chest x-ray 08/03/2019 HISTORY: COPD TECHNIQUE: Frontal and lateral views of the chest are obtained. FINDINGS: There is no focal air space opacity, pleural effusion, or pneumothorax seen. The cardiac silhouette size is within normal limits. Calcification and scarring along the left lung base and hem idiaphragm is stable finding. Aorta is dense. Prominent lung volumes consistent with COPD. There are coronary artery calcifications. Surgical clips present in abdomen. The osseous structures are intact. IMPRESSION: No acute cardiopulmonary process.
== END | disposition home or self-care (01) ==
LOC: RADXRMAIN 12:44
PROVIDERS: ATTEND Family Medicine
DX: J44.9 Chronic obstructive pulmonary disease, unspecified (principal)
CPT/HCPCS: 71046

== ENCOUNTER → 2020-10-10 | Outpatient (CLI) | payer MEDICAID ==
--- NOTE | 2020-10-10 14:07 | CT ---
EXAMINATION TYPE: CT abdomen pelvis w con DATE OF EXAM: 10/10/2020 COMPARISON: CT 11/05/2018 HISTORY: Mid abdominal pain x 1 week. History of bowel obstruction. CT DLP: 1394 mGycm Automated exposure control for dose reduction was used. TECHNIQUE: Helical acquisition of images from the lung bases through the pelvis have been completed. CONTRAST: Performed with Oral Contrast and with IV Contrast, patient injected with 100 mL of Isovue M300. FINDINGS: There are calcified pleural plaques in the left lung base similar to prior exam. LUNG BASES: Basilar scarring is again noted on the left, no pleural pericardial effusion AORTA: No significant abnormality is appreciated. LIVER/GB: Patient is post cholecystectomy. Liver shows a stable appearance.. PANCREAS: No significant abnormality is seen. SPLEEN: No significant abnormality is seen. ADRENALS: No significant abnormality is seen. KIDNEYS: No significant abnormality is seen. REPRODUCTIVE ORGANS: No significant abnormality is seen BOWEL: The previously identified thickened bowel loops have improved. There is no evident bowel obst ruction.. FREE AIR: No Free Air visible. ASCITES: None visible. PELVIC ADENOPATHY: None visualized. RETROPERITONEAL ADENOPATHY: No Retroperitoneal Adenopathy visible. URINARY BLADDER: No significant abnormality is seen. OSSEOUS STRUCTURES: There is a slight spinal curvature. Degenerative disc changes are present especi ally in the lower lumbar spine.. IMPRESSION: THERE IS INTERVAL IMPROVEMENT IN THE ABNORMAL APPEARANCE OF THE BOWEL.
== END | disposition home or self-care (01) ==
LOC: RADCTMAIN 11:40
PROVIDERS: ATTEND Family Medicine
DX: R10.9 Unspecified abdominal pain (principal)
CPT/HCPCS: 74177; Q9967 ×2

== ENCOUNTER → 2021-04-30 | Outpatient (CLI) | payer MEDICAID, MEDICARE ==
--- NOTE | 2021-04-30 12:02 | XR ---
EXAMINATION TYPE: XR abdomen acute w cxr DATE OF EXAM: 04/30/2021 COMPARISON: Exam 03/31/2019, CT 10/10/2020 HISTORY: R 10.13 TECHNIQUE: Supine, upright, and frontal chest views of the abdomen and chest are obtained. FINDINGS: Calcification along the left hemidiaphragm with some local scarring is again noted, blunti ng left costophrenic angle is stable. Aorta is dense. Cardiac mediastinal silhouette is stable. No pn eumothorax or pleural effusion. Scoliotic curvature is present within the spine. There is associated disc change. Surgical clips are present right upper quadrant, pelvis. There is no evidence for pneumoperitoneum. The bowel gas pattern is unremarkable as there is air throughout nondilated small and large bowel. No sizeable air fluid levels. No mass effects are seen. IMPRESSION: Pleural calcifications and scarring at the left lung base are chronic. Degenerative disc disease and associated facet arthropathy noted, postop changes.
== END | disposition home or self-care (01) ==
LOC: RADXRMAIN 10:31
PROVIDERS: ATTEND Family Medicine
DX: J98.4 Other disorders of lung (principal); J94.8 Other specified pleural conditions
CPT/HCPCS: 74022

== ENCOUNTER → 2021-08-05 | Outpatient (CLI) | payer MEDICARE, BC ==
--- NOTE | 2021-08-05 14:17 | XR ---
EXAMINATION TYPE: XR abdomen complete w decub DATE OF EXAM: 08/05/2021 COMPARISON: 07/07/2019 HISTORY: Pain TECHNIQUE: Supine, upright, and left side down lateral decubitus views of the abdomen are obtained. FINDINGS: Calcification left lung base. Surgical clips right upper quadrant. Degenerative changes spi ne with scoliosis. Bowel gas pattern nonspecific. No obstruction. Surgical clips overlying the pubic rami. IMPRESSION: Nonspecific abdomen.
== END | disposition home or self-care (01) ==
LOC: RADXRMAIN 13:29
PROVIDERS: ATTEND Nurse Practitioner Family
DX: R10.13 Epigastric pain (principal)
CPT/HCPCS: 74021

== ENCOUNTER 2021-11-07 18:33 | Emergency (ER) | payer MEDICARE, BC ==
[2021-11-07] MEDS ORDERED: SODIUM CHLORIDE 0.9% 1,000 ML IV STA (19:24)
[2021-11-07] MEDS ORDERED: MORPHINE SULFATE 4 MG/ML SYRINGE IV STA (19:24)
[2021-11-07] MEDS ORDERED: ONDANSETRON 4 MG/2 ML VIAL IVP STA (19:24)
[2021-11-07] MEDS ORDERED: FAMOTIDINE 20 MG/2 ML VIAL IV STA (19:25)
--- NOTE | 2021-11-07 19:28 | ED ---
General Adult HPI - General Stated complaint: abd pain Time Seen by Provider: 11/07/21 19:14 Source: patient, RN notes reviewed Mode of arrival: ambulatory Limitations: no limitations - History of Present Illness Initial comments: Patient is a pleasant 76-year-old male presenting to the emergency Department with abdominal discomfort. Onset of symptoms was 2 days ago. Patient does have some nausea and did vomit a little bit at one time. Patient has follow will be constipated. Patient does have history of 2 previous bowel obstructions that feel somewhat similar to this. Patient states this was secondary to a narrow ileum. No fever. - Related Data Home Medications Medication Instructions Recorded Confirmed Garlic 1 tab PO DAILY 10/12/14 11/04/18 Lansoprazole 30 mg PO DAILY 10/12/14 11/04/18 [place]-3 Fatty Acids [[place]-3] 1,000 mg PO DAILY 10/12/14 11/04/18 Budesonide/Formoterol Fumarate 2 puff INHALATION RT-BID 06/14/15 11/04/18 [Symbicort 80-4.5 Mcg Inhaler] L.acidoph,Paracasei, B.lactis 1 cap PO DAILY 11/18/16 11/04/18 [Probiotic] Multivitamins, Thera [Multivitamin 1 tab PO DAILY 11/18/16 11/04/18 (formulary)] Celecoxib [CeleBREX] 100 mg PO DAILY 11/04/18 11/04/18 Cholecalciferol (Vitamin D3) 2,000 unit PO DAILY 11/04/18 11/04/18 [Vitamin D3] Fexofenadine HCl [[place] Allergy] 180 mg PO DAILY 11/04/18 11/04/18 HYDROcodone/APAP 7.5-325MG [[place] 1 tab PO TID 11/04/18 11/04/18 7.5-325] Allergies Allergy/AdvReac Type Severity Reaction Status Date / Time No Known Allergies Allergy Verified 11/04/18 16:20 Review of Systems ROS Statement: Those systems with pertinent positive or pertinent negative responses have been documented in the HPI. ROS Other: All systems not noted in ROS Statement are negative. Constitutional: Denies: fever, chills Eyes: Denies: eye pain ENT: Denies: ear pain Respiratory: Denies: cough Cardiovascular: Denies: chest pain Endocrine: Denies: fatigue Gastrointestinal: Reports: as per HPI, abdominal pain Genitourinary: Denies: dysuria Musculoskeletal: Denies: back pain Skin: Denies: rash Neurological: Denies: weakness Past Medical History Past Medical History: COPD, GERD/Reflux, Osteoarthritis (OA) Additional Past Medical History / Comment(s): NUMEROUS BOWEL OBSTRUCTIONS, ileus, diverticular disease, hx asbestos exposure. HX OF POLYPS History of Any Multi-Drug Resistant Organisms: None Reported Past Surgical History: Back Surgery, Bowel Resection, Cholecystectomy, Orthopedic Surgery, Tonsillectomy Additional Past Surgical History / Comment(s): COLONOSCOPY, EGD, BOWEL RESECTIONS IN 2012- LYSIS OF ADHESIONS-05/09/14, had spinal stenosis, had fusion done, R knee arthroscopy for torn meniscus. total L knee 2018 Past Anesthesia/Blood Transfusion Reactions: No Reported Reaction Past Psychological History: No Psychological Hx Reported Additional Psychological History / Comment(s): . Past Alcohol Use History: Occasional Additional Past Alcohol Use History / Comment(s): started smoking at age 12 worked up to 3 ppd, quit 1997 Past Drug Use History: None Reported - Past Family History Father Family Medical History: Cancer Additional Family Medical History / Comment(s): at age 64- colon cancer Mother Family Medical History: Hyperlipidemia, Hypertension Additional Family Medical History / Comment(s): Mother at age 78 General Exam Limitations: no limitations General appearance: alert, in no apparent distress Head exam: Present: normocephalic Eye exam: Present: normal appearance Neck exam: Present: normal inspection Respiratory exam: Present: normal lung sounds bilaterally Cardiovascular Exam: Present: regular rate, normal rhythm Expanded Peripheral pulses: 2+: Posterior Tibialis (R), Posterior Tibialis (L) GI/Abdominal exam: Present: soft, tenderness (Moderate tenderness mostly in the epigastric), diminished bowel sounds. Absent: distended, guarding, rebound, rigid, pulsatile mass Extremities exam: Present: normal inspection. Absent: pedal edema, calf tenderness Neurological exam: Present: alert Psychiatric exam: Present: normal affect, normal mood Skin exam: Present: normal color Medical Decision Making - Medical Decision Making Patient has eloped Disposition Clinical Impression: Abdominal pain Disposition: Left Against Medical Advice Is patient prescribed a controlled substance at d/c from ED?: No Referrals: Uriel Pendleton MD [Primary Care Provider] - 1-2 days Time of Disposition: 21:01
[2021-11-08 00:51] LABS: Basophils # (A) 0.1 k/uL (0-0.2); Basophils % (A) 1 %; Eosinophils # (A) 0.2 k/uL (0-0.7); Eosinophils % (A) 2 %; HCT 49.2 % (39.0-53.0); HGB 15.9 gm/dL (13.0-17.5); Lymphocytes # (A) 2.2 k/uL (1.0-4.8); Lymphocytes % (A) 20 %; MCH 30.3 pg (25.0-35.0); MCHC 32.4 g/dL (31.0-37.0); MCV 93.5 fL (80.0-100.0); Mean Platelet Volume 8.9; Monocytes % (A) 9 %; Neutrophils # (A) 7.2 k/uL (1.3-7.7); Neutrophils % (A) 66 %; Platelet Count 352 k/uL (150-450); RBC 5.27 m/uL (4.30-5.90); RDW 13.5 % (11.5-15.5); WBC 10.9 k/uL (3.8-10.6)
[2021-11-08 01:02] VITALS: RESP 18
[2021-11-08 01:13] LABS: Appearance,Urine Clear (Clear); Bilirubin,Urine Negative (Negative); Blood,Urine Trace (Negative); Color,Urine Yellow; Glucose,Urine (UA) Negative (Negative); Hyaline Casts,Urine 1 /lpf (0-2); Ketones,Urine 2+ (Negative); Leukocyte Esterase,Urine Negative (Negative); Mucus,Urine Rare /hpf; Nitrite,Urine Negative (Negative); PH, Urine 5.5 (5.0-8.0); Protein,Urine Negative (Negative); RBC,Urine 1 /hpf (0-5); Specific Gravity,Urine 1.013 (1.001-1.035); Urobilinogen,Urine <2.0 mg/dL (<2.0); WBC,Urine 1 /hpf (0-5)
[2021-11-08 01:16] LABS: ALT 34 U/L (4-49); African American GFR (CKD) >90 (>60 ml/min/1.73 sqM); Albumin 4.7 g/dL (3.5-5.0); Amylase 49 U/L (30-110); Anion Gap 11 mmol/L; Blood Urea Nitrogen 12 mg/dL (9-20); Calcium 9.5 mg/dL (8.4-10.2); Carbon Dioxide 24 mmol/L (22-30); Chloride 102 mmol/L (98-107); Glucose 77 mg/dL (74-99); Lipase 55 U/L (23-300); Non-African American GFR(CKD) >90 (>60 ml/min/1.73 sqM); Sodium 137 mmol/L (137-145); Total Protein 7.8 g/dL (6.3-8.2)
[2021-11-08 01:18] LABS: AST 43 U/L (17-59); Alkaline Phosphatase 61 U/L (38-126); Potassium 4.6 mmol/L (3.5-5.1)
[2021-11-08 01:19] LABS: Partial Thromboplastin Time 25.6 sec (22.0-30.0); Prothrombin Time 10.5 sec (9.0-12.0)
--- NOTE | 2021-11-08 05:15 | XR ---
EXAM: XR Abdomen, 1 View CLINICAL HISTORY: ITS.REASON XR Reason: abdominal pain TECHNIQUE: Frontal supine view of the abdomen/pelvis. COMPARISON: 11/07/2021 FINDINGS: Gastrointestinal tract: Nonspecific bowel gas pattern. No dilation. Bones/joints: No acute fracture. No dislocation. IMPRESSION: No acute findings.
[2021-11-08 06:56] VITALS: BP 138/86; PULSE 79
== END 2021-11-08 06:56 | disposition left against medical advice (07) ==
LOC: EC 18:33
DX: R10.9 Unspecified abdominal pain (principal); R11.2 Nausea with vomiting, unspecified; J44.9 Chronic obstructive pulmonary disease, unspecified; K21.9 Gastro-esophageal reflux disease without esophagitis; M19.90 Unspecified osteoarthritis, unspecified site; Z90.49 Acquired absence of other specified parts of digestive tract; Z53.29 Procedure and treatment not carried out because of patient's decision for other reasons; Z79.899 Other long term (current) drug therapy; Z79.51 Long term (current) use of inhaled steroids
CPT/HCPCS: 36415; 93005; 80053; 82150; 83690; 85025; 85610; 85730; 81001; 74018; 99284; 96374; 96375; 96361; J2270; J2405

== ENCOUNTER → 2021-11-07 | Outpatient (CLI) | payer MEDICARE, BC ==
--- NOTE | 2021-11-07 10:33 | XR ---
EXAMINATION TYPE: XR chest 2V DATE OF EXAM: 11/07/2021 COMPARISON: 04/16/2020 HISTORY: Shortness of breath TECHNIQUE: Frontal and lateral views of the chest are obtained. FINDINGS: Scattered senescent parenchymal changes noted. Hyperinflation compatible with COPD. No evidence for infiltrate. No evidence for atelectasis. Calcified pleural plaque left lower lobe. Heart size is stable. Mediastinal structures are stable and grossly unremarkable. No evidence for hilar prominence. Degenerative changes dorsal spine. IMPRESSION: 1. No evidence for acute pulmonary disease.
--- NOTE | 2021-11-07 10:36 | XR ---
Abdomen HISTORY: Abdominal pain Abdomen stated on 3 images and correlated to prior exam 08/05/2021, CT 10/10/2020 There is calcification present at the left lung base as on prior. Surgical clips are noted in the rig ht upper quadrant and pelvis. There is a spinal curvature present with degenerative disc changes note d in the lumbar spine. There are prominent loops of small bowel present. No evident pneumoperitoneum. There are some air-fluid levels. IMPRESSION: Correlate for possible bowel obstruction, ileus or enteritis. Follow-up as indicated.
== END | disposition home or self-care (01) ==
LOC: RADXRMAIN 09:56
PROVIDERS: ATTEND Family Medicine
DX: R10.9 Unspecified abdominal pain (principal)
CPT/HCPCS: 36415; 71046; 74018; 81001

== ENCOUNTER → 2021-11-18 | Outpatient (CLI) | payer MEDICARE, BC ==
--- NOTE | 2021-11-18 14:18 | XR ---
EXAMINATION TYPE: XR chest 1V DATE OF EXAM: 11/18/2021 COMPARISON: Chest x-ray 11/07/2021 HISTORY: R 10.9 TECHNIQUE: Single frontal view of the chest is obtained. FINDINGS: There is no focal air space opacity, pleural effusion, or pneumothorax seen. Calcified ple ura, some local scarring, chronic pleural reaction at the left is phrenic angle, left lung base is ag ain noted. Aorta is dense. The cardiac silhouette size is within normal limits. The osseous structu res are intact. IMPRESSION: No acute process. Stable abnormal findings.
--- NOTE | 2021-11-18 14:19 | XR ---
2 view abdomen HISTORY: R 10.9 2 views the abdomen correlated to KUB 11/08/2021 Calcified pleural plaque at the left lung base again noted. Surgical clips present right upper quadra nt. There is a scoliotic curvature to the lumbar spine, associated degenerative disc change. Retained fecal debris noted predominantly in the right and left:. Surgical clip present within the pelvis as on prior. No evident bowel obstruction or pneumoperitoneum. IMPRESSION: Nonobstructive bowel gas pattern.
== END | disposition home or self-care (01) ==
LOC: RADXRMAIN 13:14
PROVIDERS: ATTEND Family Medicine
DX: J92.9 Pleural plaque without asbestos (principal)
CPT/HCPCS: 71045; 74019

== ENCOUNTER 2022-05-12 12:17 | Inpatient (IN) | payer BC, MEDICARE ==
[2022-05-12] MEDS ORDERED: SODIUM CHLORIDE 0.9% 500 ML 500 ML IV STA (13:21)
[2022-05-12] MEDS ORDERED: ONDANSETRON 4 MG/2 ML VIAL IVP STA (13:21)
--- NOTE | 2022-05-12 13:26 | ED ---
General Adult HPI - General Chief complaint: Abdominal Pain Stated complaint: Bowel Obstruction,Sent by PCP Time Seen by Provider: 05/12/22 13:00 Source: patient, RN notes reviewed, old records reviewed Mode of arrival: ambulatory Limitations: no limitations - History of Present Illness Initial comments: This is a 66-year-old male who presents emergency Department states he had appendix removed in the past and after that he had a bowel obstruction that he needed to have surgery on. Patient states this morning he started to get bloated in his stomach he started vomiting and he states that he feels like he has another bowel obstruction. His abdomen is significantly more distended than normal. Patient states his tenderness in his whole abdomen. Patient denies any fevers chills per patient denies chest pain difficult breathing shortness of saeid ath. Patient denies any diarrhea. Patient states he hasn't been having any bowel movements or passing gas. - Related Data Home Medications Medication Instructions Recorded Confirmed Garlic 1 tab PO DAILY 10/12/14 05/12/22 Lansoprazole 30 mg PO DAILY 10/12/14 05/12/22 Fluticasone/Umeclidin/Vilanter 1 puff INHALATION RT-DAILY 05/12/22 05/12/22 [Trelegy Ellipta 200-62.5-25] Multivit-Min/FA/Lycopen/Lutein 1 tab PO DAILY 05/12/22 05/12/22 [Centrum Silver Men Tablet] Allergies Allergy/AdvReac Type Severity Reaction Status Date / Time No Known Allergies Allergy Verified 05/12/22 13:35 Review of Systems ROS Statement: Those systems with pertinent positive or pertinent negative responses have been documented in the HPI. ROS Other: All systems not noted in ROS Statement are negative. Past Medical History Past Medical History: COPD, GERD/Reflux, Osteoarthritis (OA) Additional Past Medical History / Comment(s): NUMEROUS BOWEL OBSTRUCTIONS, ileus, diverticular disease, hx asbestos exposure. HX OF POLYPS History of Any Multi-Drug Resistant Organisms: None Reported Past Surgical History: Back Surgery, Bowel Resection, Cholecystectomy, Orthopedic Surgery, Tonsillectomy Additional Past Surgical History / Comment(s): COLONOSCOPY, EGD, BOWEL RESECTIONS IN 2012- LYSIS OF ADHESIONS-05/09/14, had spinal stenosis, had fusion done, R knee arthroscopy for torn meniscus. total L knee 2017 Past Anesthesia/Blood Transfusion Reactions: No Reported Reaction Past Psychological History: No Psychological Hx Reported Smoking Status: Never smoker Past Alcohol Use History: None Reported Past Drug Use History: None Reported - Past Family History Father Family Medical History: Cancer Additional Family Medical History / Comment(s): at age 64- colon cancer Mother Family Medical History: Hyperlipidemia, Hypertension Additional Family Medical History / Comment(s): Mother at age 78 General Exam - General Exam Comments Initial Comments: GENERAL: Patient is well-developed and well-nourished. Patient is nontoxic and well- hydrated and is in mild distress. ENT: Neck is soft and supple. No significant lymphadenopathy is noted. Oropharynx is clear. Moist mucous membranes. Neck has full range of motion without eliciting any pain. EYES: The sclera were anicteric and conjunctiva were pink and moist. Extraocular movements were intact and pupils were equal round and reactive to light. Eyelids were unremarkable. PULMONARY: Unlabored respirations. Good breath sounds bilaterally. No audible rales rhonchi or wheezing was noted. CARDIOVASCULAR: There is a regular rate and rhythm without any murmurs gallops or rubs. ABDOMEN: Abdomen is diffusely tender and mildly distended. SKIN: Skin is clear with no lesions or rashes and otherwise unremarkable. NEUROLOGIC: Patient is alert and oriented x3. Cranial nerves II through XII are grossly intact. Motor and sensory are also intact. Normal speech, volume and content. Symmetrical smile. MUSCULOSKELETAL: Normal extremities with adequate strength and full range of motion. LYMPHATICS: No significant lymphadenopathy is noted PSYCHIATRIC: Normal psychiatric evaluation. Limitations: no limitations Course Vital Signs 05/12/22 12:40 Temperature 97.2 F L Pulse Rate 100 Respiratory 19 Rate Blood Pressure 152/108 O2 Sat by Pulse 94 L Oximetry Medical Decision Making - Medical Decision Making EKG was interpreted by myself EKG shows a sinus rhythm at 70 bpm IN interval 174 QRS is 133 Q-T intervals 366 QTC is 399. Patient's EKG shows no ST segment e levation or depression Was pt. sent in by a medical professional or institution? @ -Dr. Pendleton sent the patient is Did you speak to anyone other than the patient for history? @ -Dr. Pendleton about the patient's history and current condition prior to arrival. Did you review nursing and triage notes? @ -I agree with nursing notes. Were old charts reviewed? @ -Patient's previous admissions for bowel obstruction were reviewed. Differential Diagnosis? @ -Gastroenteritis, diverticulitis, perforation, EKG interpreted by me (3pts min.)? @ -See above X-rays interpreted by me (1pt min.)? @ -None CT interpreted by me (1pt min.)? @ -CT showed small bowel structures U/S interpreted by me (1pt. min.)? @ -None What testing was considered but not performed? (CT, X-rays, U/S, labs)? Why? @ -X-ray was initially considered but a CT would be a better more in-depth study so that was done. What meds were considered but not given? Why? @ -I considered starting antibiotics however I didn't believe it was appropriate or a diverticulitis based on my clinical examination so I waited for the results of the CAT scan Did you discuss the management of the patient with other professionals? @ -I spoke with Dr. Miner about admitting the patient he agreed to admit the patient admitted the patient wrote admitting orders. Did you reconcile home meds? @ -None Was smoking cessation discussed for >3mins.? @ -None Was critical care preformed (if so, how long)? @ -None Were there social determinants of health that impacted care today? How? (Homelessness, low income, unemployed, alcoholism, drug addiction, transportation, low edu. Level, literacy, decrease access to med. care, skilled nursing, rehab)? @ -None Was there de-escalation of care discussed even if they declined? (Discuss DNR or withdrawal of care, Hospice)? @ -None What co-morbidities impacted this encounter? (DM, HTN, Smoking, COPD, CAD, Cancer, CVA, Hep., AIDS, mental health diagnosis, sleep apnea, morbid obesity)? @ -None Was patient admitted / discharged? @ -Small bowel obstruction and patient will be admitted. Spoke with Dr. Miner he agreed to admit the patient admitted the patient. I had an NG tube placed Undiagnosed new problem with uncertain prognosis? @ -None Drug Therapy requiring intensive monitoring for toxicity (Heparin, Nitro, Insulin, Cardizem)? @ -None Were any procedures done? @ -None Diagnosis/symptom? @ -Small bowel obstruction Acute, or Chronic, or Acute on Chronic? @ -Acute Uncomplicated (without systemic symptoms) or Complicated (systemic symptoms)? @ -Complicated Side effects of treatment? @ -None Exacerbation, Progression, or Severe Exacerbation] @ -None Poses a threat to life or bodily function? @ -None - Lab Data Result diagrams: 05/12/22 13:38 05/12/22 13:38 Lab Results 05/12/22 05/12/22 Range/Units 13:38 13:38 WBC 16.0 H (3.8-10.6) k/uL RBC 5.18 (4.30-5.90) m/uL Hgb 15.9 (13.0-17.5) gm/dL Hct 47.4 (39.0-53.0) % MCV 91.5 (80.0-100.0) fL MCH 30.6 (25.0-35.0) pg MCHC 33.4 (31.0-37.0) g/dL RDW 13.5 (11.5-15.5) % Plt Count 353 (150-450) k/uL MPV 9.3 Neutrophils % 84 % Lymphocytes % 9 % Monocytes % 5 % Eosinophils % 1 % Basophils % 0 % Neutrophils # 13.5 H (1.3-7.7) k/uL Lymphocytes # 1.4 (1.0-4.8) k/uL Monocytes # 0.7 (0-1.0) k/uL Eosinophils # 0.2 (0-0.7) k/uL Basophils # 0.0 (0-0.2) k/uL Sodium 136 L (137-145) mmol/L Potassium 4.6 (3.5-5.1) mmol/L Chloride 103 (98-107) mmol/L Carbon Dioxide 26 (22-30) mmol/L Anion Gap 7 mmol/L BUN 11 (9-20) mg/dL Creatinine 0.75 (0.66-1.25) mg/dL Est GFR (CKD-EPI)AfAm >90 (>60 ml/min/1.73 sqM) Est GFR (CKD-EPI)NonAf >90 (>60 ml/min/1.73 sqM) Glucose 95 (74-99) mg/dL Calcium 9.3 (8.4-10.2) mg/dL Total Bilirubin 0.7 (0.2-1.3) mg/dL AST 30 (17-59) U/L ALT 24 (4-49) U/L Alkaline Phosphatase 71 (38-126) U/L Total Protein 7.5 (6.3-8.2) g/dL Albumin 4.3 (3.5-5.0) g/dL Amylase 66 (30-110) U/L Lipase 73 (23-300) U/L Disposition Clinical Impression: Small bowel obstruction Disposition: ADMITTED IP TO THIS [facility] Referrals: Uriel Pendleton MD [Primary Care Provider] - 1-2 days Time of Disposition: 14:48
[2022-05-12 13:49] LABS: Basophils % (A) 0 %; Eosinophils # (A) 0.2 k/uL (0-0.7); Eosinophils % (A) 1 %; HCT 47.4 % (39.0-53.0); HGB 15.9 gm/dL (13.0-17.5); Lymphocytes # (A) 1.4 k/uL (1.0-4.8); Lymphocytes % (A) 9 %; MCH 30.6 pg (25.0-35.0); MCHC 33.4 g/dL (31.0-37.0); MCV 91.5 fL (80.0-100.0); Mean Platelet Volume 9.3; Monocytes # (A) 0.7 k/uL (0-1.0); Monocytes % (A) 5 %; Neutrophils # (A) 13.5 k/uL (1.3-7.7); Neutrophils % (A) 84 %; Platelet Count 353 k/uL (150-450); RBC 5.18 m/uL (4.30-5.90); RDW 13.5 % (11.5-15.5)
[2022-05-12 14:04] LABS: ALT 24 U/L (4-49); AST 30 U/L (17-59); African American GFR (CKD) >90 (>60 ml/min/1.73 sqM); Albumin 4.3 g/dL (3.5-5.0); Alkaline Phosphatase 71 U/L (38-126); Amylase 66 U/L (30-110); Anion Gap 7 mmol/L; Blood Urea Nitrogen 11 mg/dL (9-20); Calcium 9.3 mg/dL (8.4-10.2); Carbon Dioxide 26 mmol/L (22-30); Chloride 103 mmol/L (98-107); Glucose 95 mg/dL (74-99); Lipase 73 U/L (23-300); Non-African American GFR(CKD) >90 (>60 ml/min/1.73 sqM); Potassium 4.6 mmol/L (3.5-5.1); Sodium 136 mmol/L (137-145); Total Bilirubin 0.7 mg/dL (0.2-1.3); Total Protein 7.5 g/dL (6.3-8.2)
--- NOTE | 2022-05-12 14:23 | CT ---
EXAMINATION TYPE: CT abdomen pelvis wo con CT DLP: 1072.4 mGycm, Automated exposure control for dose reduction was used. DATE OF EXAM: 05/12/2022 2:05 PM COMPARISON: CT abdomen pelvis most recent from 10/10/2020. CLINICAL INDICATION:Male, 66 years old with history of abdominal pain; abdominal pain, hx of SBO TECHNIQUE: Standard CT of the abdomen and pelvis without IV or oral contrast. Lack of IV or oral co ntrast limits evaluation of solid and hollow organ viscera. Coronal and sagittal reformats were perfo rmed. FINDINGS: LOWER CHEST: Calcified pleural plaques in the left lung base. Calcified granuloma within the right erica ng base. Similar bibasilar scarring. Mild cardiomegaly. Coronary arterial calcifications. ABDOMEN LIVER: Unremarkable noncontrast appearance. GALLBLADDER AND BILE DUCTS: The gallbladder is surgically absent. No biliary duct dilatation. PANCREAS: Unremarkable noncontrast appearance. SPLEEN: Unremarkable noncontrast appearance. ADRENAL GLANDS: Unremarkable noncontrast appearance. KIDNEYS AND URETERS: No evidence of hydronephrosis or renal calculus. PELVIS BLADDER: Unremarkable REPRODUCTIVE: Unremarkable. ABDOMEN & PELVIS STOMACH AND BOWEL: Mild gastric distention with fluid and air. Dilated fluid and gas filled small bow el measuring up to 4.4 cm. Transition point is suggested within the right lower quadrant within the. Small bowel feces sign. There is associated mesenteric congestion. Collapsed terminal ileum. No pneum atosis. The colon is normal caliber. No evidence of bowel obstruction. PERITONEUM: No evidence of pneumoperitoneum or free fluid. VASCULATURE: Mild atherosclerotic calcifications are present throughout the abdominal aorta and its b ranches. No evidence of aortic aneurysm. MUSCULOSKELETAL: No acute osseous abnormalities. Moderate disc degeneration changes are present throu ghout the thoracolumbar spine. Grade 1 anterolisthesis of L4-L5 without evidence of pars defects. Mil d retrolisthesis of L3 on L4. LYMPH NODES: No gross evidence for lymphadenopathy. SOFT TISSUE/ABDOMINAL WALL: Postsurgical changes of the anterior abdominal wall. Tiny fat filled loca l hernia. IMPRESSION: Small bowel obstruction with suggested transition point in the right lower quadrant likely due to adh esions. There is some mesenteric congestion without evidence of pneumatosis.
[2022-05-12] MEDS ORDERED: PANTOPRAZOLE 40 MG/10 ML VIAL IVP STA (14:38)
[2022-05-12] MEDS ORDERED: SODIUM CHLORIDE 0.9% 1,000 ML IV ONE (14:50)
--- NOTE | 2022-05-12 16:01 | P.GSHP ---
History of Present Illness H&P Date: 05/12/22 CHIEF COMPLAINT: Abdominal pain HISTORY OF PRESENT ILLNESS: This is a 66-year-old male who presented to the hospital with complaints of abdominal pain, abdominal distention and nausea with vomiting. Patient reports that this feels similar to previous small bowel obstruction. Patient has had previous history of small bowel obstructions. His last surgery for small bowel obstruction was in October 2018. He had lysis of adhesions and repair of incisional hernia. Patient reports since that time he has had 3 more episodes of small bowel obstructions. Patient stopped having bowel movements and flatus. Patient denies any fever chills or sweats. He has prior surgical history of small bowel obstruction in 2012, prior history of lysis of adhesions and cholecystectomy. Patient admits the hospital with small bowel obstruction. Patient seen and examined with Dr. woo PAST MEDICAL HISTORY: See below PAST SURGICAL HISTORY: See below MEDICATIONS: See below ALLERGIES: See below SOCIAL HISTORY: No illicit drug use. REVIEW OF SYSTEMS: CONSTITUTIONAL: Denies fever or chills. HEENT: Denies blurred vision, vision changes, or eye pain. Denies hemoptysis CARDIOVASCULAR: Denies chest pain or pressure. RESPIRATORY: No shortness of breath. GASTROINTESTINAL: See HPI for pertinent findings HEMATOLOGIC: Denies bleeding disorders. GENITOURINARY: Denies any blood in urine or increased urinary frequency. SKIN: Denies pruitis. Denies rash. PHYSICAL EXAM: VITAL SIGNS: Reviewed GENERAL: Well-developed in no acute distress. HEENT: No sclera icterus. Extraocular movements grossly intact. Moist buccal mucosa. Head is atraumatic, normocephalic. No nasal drainage. ABDOMEN: Distended. Diffuse tenderness. Midline scar. NEUROLOGIC: Alert and oriented. Cranial nerves II through XII grossly intact. LABORATORY DATA: WBC is 16 Hgb is 15.9 and platelets 353 Sodium is 136 potassium 4.6 creatinine 0.75 LFTs normal. Lipase 73 IMAGING: Computed tomography scan abdomen and pelvis small bowel obstruction with suggested transition point in the right lower quadrant likely due to adhesions. There is some mesenteric congestion without evidence of pneumatosis. ASSESSMENT: 1. Small bowel obstruction with transition point in the right lower quadrant likely due to adhesions noted on CAT scan 2. History of multiple small bowel obstructions requiring surgery in the past PLAN: -Place NG tube for decompression -Keep patient nothing by mouth -Start IV antibiotics -Continue IV fluids -Continue pain medication as needed -Continue antiemetics as needed -Medicine service consulted for medical management -GI prophylaxis Protonix and DVT prophylaxis subcu heparin Physician Riding Teacher note has been reviewed by physician. Signing provider agrees with the documented findings, assessment, and plan of care. Past Medical History Past Medical History: COPD, GERD/Reflux, Osteoarthritis (OA) Additional Past Medical History / Comment(s): NUMEROUS BOWEL OBSTRUCTIONS, ileus, diverticular disease, hx asbestos exposure. HX OF POLYPS History of Any Multi-Drug Resistant Organisms: None Reported Past Surgical History: Back Surgery, Bowel Resection, Cholecystectomy, Ort hopedic Surgery, Tonsillectomy Additional Past Surgical History / Comment(s): COLONOSCOPY, EGD, BOWEL RESECTIONS IN 2012- LYSIS OF ADHESIONS-05/09/14, had spinal stenosis, had fusion done, R knee arthroscopy for torn meniscus. total L knee 2018 Past Anesthesia/Blood Transfusion Reactions: No Reported Reaction Past Psychological History: No Psychological Hx Reported Smoking Status: Never smoker Past Alcohol Use History: None Reported Past Drug Use History: None Reported - Past Family History Father Family Medical History: Cancer Additional Family Medical History / Comment(s): at age 64- colon cancer Mother Family Medical History: Hyperlipidemia, Hypertension Additional Family Medical History / Comment(s): Mother at age 78 Medications and Allergies Home Medications Medication Instructions Recorded Confirmed Type Garlic 1 tab PO DAILY 10/12/14 05/12/22 History Lansoprazole 30 mg PO DAILY 10/12/14 05/12/22 History Fluticasone/Umeclidin/Vilanter 1 puff INHALATION RT-DAILY 05/12/22 05/12/22 History [Trelegy Ellipta 200-62.5-25] Multivit-Min/FA/Lycopen/Lutein 1 tab PO DAILY 05/12/22 05/12/22 History [Centrum Silver Men Tablet] Allergies Allergy/AdvReac Type Severity Reaction Status Date / Time No Known Allergies Allergy Verified 05/12/22 13:35 Surgical - Exam Vital Signs Temp Pulse Resp BP Pulse Ox 97.2 F L 100 19 152/108 94 L 05/12/22 12:40 05/12/22 12:40 05/12/22 12:40 05/12/22 12:40 05/12/22 12:40 Results - Labs 05/12/22 13:38 05/12/22 13:38 Abnormal Lab Results - Last 24 Hours (Table) 05/12/22 05/12/22 Range/Units 13:38 13:38 WBC 16.0 H (3.8-10.6) k/uL Neutrophils # 13.5 H (1.3-7.7) k/uL Sodium 136 L (137-145) mmol/L Diabetes panel 05/12/22 Range/Units 13:38 Sodium 136 L (137-145) mmol/L Potassium 4.6 (3.5-5.1) mmol/L Chloride 103 (98-107) mmol/L Carbon Dioxide 26 (22-30) mmol/L BUN 11 (9-20) mg/dL Creatinine 0.75 (0.66-1.25) mg/dL Glucose 95 (74-99) mg/dL Calcium 9.3 (8.4-10.2) mg/dL AST 30 (17-59) U/L ALT 24 (4-49) U/L Alkaline Phosphatase 71 (38-126) U/L Total Protein 7.5 (6.3-8.2) g/dL Albumin 4.3 (3.5-5.0) g/dL Calcium panel 05/12/22 Range/Units 13:38 Calcium 9.3 (8.4-10.2) mg/dL Albumin 4.3 (3.5-5.0) g/dL Pituitary panel 05/12/22 Range/Units 13:38 Sodium 136 L (137-145) mmol/L Potassium 4.6 (3.5-5.1) mmol/L Chloride 103 (98-107) mmol/L Carbon Dioxide 26 (22-30) mmol/L BUN 11 (9-20) mg/dL Creatinine 0.75 (0.66-1.25) mg/dL Glucose 95 (74-99) mg/dL Calcium 9.3 (8.4-10.2) mg/dL Adrenal panel 05/12/22 Range/Units 13:38 Sodium 136 L (137-145) mmol/L Potassium 4.6 (3.5-5.1) mmol/L Chloride 103 (98-107) mmol/L Carbon Dioxide 26 (22-30) mmol/L BUN 11 (9-20) mg/dL Creatinine 0.75 (0.66-1.25) mg/dL Glucose 95 (74-99) mg/dL Calcium 9.3 (8.4-10.2) mg/dL Total Bilirubin 0.7 (0.2-1.3) mg/dL AST 30 (17-59) U/L ALT 24 (4-49) U/L Alkaline Phosphatase 71 (38-126) U/L Total Protein 7.5 (6.3-8.2) g/dL Albumin 4.3 (3.5-5.0) g/dL
[2022-05-12] MEDS ORDERED: ONDANSETRON 4 MG/2 ML VIAL IVP PRN (16:02)
[2022-05-12] MEDS: PIPERACILLIN-TAZOBACTAM 3.375 GM in SODIUM CHLORIDE 0.9% 100 ML IVPB SCH ×2 (17:18→23:28)
--- NOTE | 2022-05-12 17:46 | XR ---
EXAMINATION TYPE: XR chest 1V [facility] DATE OF EXAM: 05/12/2022 5:34 PM COMPARISON: Chest radiographs from 11/18/2021 TECHNIQUE: XR chest 1V confirm line [facility] Portable AP radiograph of the chest. CLINICAL INDICATION:Male, 66 years old with history of Confirm NG tube placement; FINDINGS: Lungs/Pleura: There is no evidence of pleural effusion, focal consolidation, or pneumothorax. Pulmonary vascularity: Unremarkable. Heart/mediastinum: Cardiomediastinal silhouette is unremarkable. Musculoskeletal: No acute osseous pathology. Lines/Tubes: Nasogastric tube with side-port projecting over the distal esophagus. IMPRESSION: Nasogastric tube side-port in the distal esophagus, advancement of 10 cm for optimal placement is rec ommended. No acute cardiopulmonary disease/process.
[2022-05-12] MEDS: HEPARIN SODIUM,PORCINE/PF 5,000 UNIT/0.5 ML SYRINGE SQ SCH (20:46)
[2022-05-12] MEDS: HYDROmorphone 1 MG/ML 1 ML SYRINGE IVP PRN (20:46)
[2022-05-13] MEDS: PANTOPRAZOLE 40 MG/10 ML VIAL IVP SCH (07:59)
[2022-05-13] MEDS: HYDROmorphone 1 MG/ML 1 ML SYRINGE IVP PRN (08:00)
[2022-05-13] MEDS: PIPERACILLIN-TAZOBACTAM 3.375 GM in SODIUM CHLORIDE 0.9% 100 ML IVPB SCH ×3 (08:00→23:27)
[2022-05-13] MEDS: HEPARIN SODIUM,PORCINE/PF 5,000 UNIT/0.5 ML SYRINGE SQ SCH ×2 (08:00→19:58)
[2022-05-13] MEDS: IPRATROPIUM 0.5 MG/2.5 ML NEBU INHALATION SCH ×2 (08:50→11:38)
[2022-05-13] MEDS: SYMBICORT 80-4.5 MCG INHALER INHALATION SCH ×2 (08:50→20:09)
[2022-05-13 10:20] LABS: Basophils # (A) 0.03 X 10*3/uL (0.00-0.10); Basophils % (A) 0.2 %; Eosinophils # (A) 0.15 X 10*3/uL (0.04-0.35); Eosinophils % (A) 1.2 %; HCT 45.6 % (39.6-50.0); HGB 14.9 g/dL (13.0-17.0); Immature Grans, Automated 0.3 %; Lymphocytes # (A) 1.82 X 10*3/uL (0.90-5.00); Lymphocytes % (A) 14.8 %; MCH 29.4 pg (27.0-32.0); MCHC 32.7 g/dL (32.0-37.0); MCV 89.9 fL (80.0-97.0); Mean Platelet Volume 11.1 fL (9.5-12.2); Monocytes # (A) 1.02 X 10*3/uL (0.20-1.00); Monocytes % (A) 8.3 %; NRBC Per 100 WBC 0 /100 WBCS (0.0-0.0); Neutrophils # (A) 9.24 X 10*3/uL (1.80-7.70); Neutrophils % (A) 75.2 %; Platelet Count 362 X 10*3/uL (140-440); RBC 5.07 X 10*6/uL (4.40-5.60); RDW 13.8 % (11.5-14.5)
[2022-05-13 10:26] LABS: African American GFR (CKD) 105.4 (60.0-200.0); Anion Gap 10.3 mmol/L (10.00-18.00); BUN/Creat Ratio 13.01 Ratio (12.00-20.00); Blood Urea Nitrogen 11.2 mg/dL (9.0-27.0); Carbon Dioxide 24.4 mmol/L (20.0-27.5); Potassium 4.5 mmol/L (3.5-5.5)
[2022-05-13] MEDS ORDERED: IPRATROPIUM-ALBUTEROL 3 ML NEB INHALATION PRN (11:44)
--- NOTE | 2022-05-13 12:38 | CONS ---
CONSULTATION REASON FOR CONSULTATION: Advice regarding COPD and other medical issues, requested by surgery. HISTORY OF PRESENT ILLNESS: This is a 66-year-old gentleman with a past medical history of multiple medical issues including COPD, has presented to [facility] with complaints of abdominal pain. The patient was being followed by Dr. Uriel Pendleton in the outpatient setting, and the patient was sent to the emergency room because of possible bowel obstruction. The patient had bloating in the abdomen and NG tube is inserted. CT scan of the abdomen which I reviewed personally showed small bowel obstruction with transition point. Surgery is following the patient closely. There is no history of any fever, rigors, or chills. PAST MEDICAL HISTORY: Reviewed, include COPD, GERD. Rest of the past medical history reviewed. ALLERGIES: None. HOME MEDICATIONS: Reviewed include multivitamins, doses and rest of the medications noted. FAMILY HISTORY: No history of cancer. SOCIAL HISTORY: Previous history of smoking. REVIEW OF SYSTEMS: A 12-point review is negative except as mentioned. PHYSICAL EXAMINATION: VITAL SIGNS: Pulse is 76, blood pressure 117/77, and respirations 18. CHEST: Clear to auscultation. CARDIOVASCULAR: S1, S2. ABDOMEN: Soft, mild diffuse distention, mild diffuse discomfort. No guarding, no masses palpable. No rebound tenderness. Bowel sounds diminished. No ascites. No masses palpable. LEGS: No edema. NERVOUS SYSTEM: No focal deficits. LABS: WBC 10.6, other labs are noted. ASSESSMENT: 1. Abdominal pain, possibly small-bowel obstruction. 2. Chronic obstructive pulmonary disease. 3. Gastroesophageal reflux disease. 4. Degenerative joint disease. 5. Multiple medical issues. RECOMMENDATIONS: This 66-year-old gentleman presented with bowel obstruction. We will monitor the patient closely. The patient is started on empiric antibiotics and will recommend to continue the rest of medications and home medications and ensure oxygenation, bronchodilators, incentive spirometry, DVT prophylaxis. Proton pump inhibitors. We will follow the patient closely with you. The patient was recommend to follow up with Dr. Uriel Pendleton closely after discharge. MMODL / IJN: [id number] /
--- NOTE | 2022-05-13 13:31 | P.PN ---
Subjective Progress Note Date: 05/13/22 CHIEF COMPLAINT: Abdominal pain HISTORY OF PRESENT ILLNESS: Patient reports decrease in abdominal pain since placement of the NG tube. He denies any flatus. Denies any nausea. He does report some decrease in abdominal distention. Does report still having some pain in the right lower quadrant. Afebrile. White count did trend down from 16-12 HCV 14.9 platelets 362 sodium is 138 potassium is 4.5 creatinine 0.9. Per nursing staff 600 mL bilious outputs are NG tube through the night. PHYSICAL EXAM: VITAL SIGNS: Reviewed. GENERAL: Well-developed in no acute distress. HEENT: No sclera icterus. Extraocular movements grossly intact. Moist buccal mucosa. Head is atraumatic, normocephalic. ABDOMEN: Distended but decreased from yesterday. Tenderness to palpation right lower quadrant NEUROLOGIC: Alert and oriented. Cranial nerves II through XII grossly intact. ASSESSMENT: 1. Small bowel obstruction with transition point in the right lower quadrant likely due to adhesions noted on CAT scan 2. History of multiple small bowel obstructions and has required lysis of adhesions the past PLAN: -Continue NG tube for decompression -Keep patient nothing by mouth -Ordered abdominal x-ray in a.m. -Continue IV fluids -Continue antibiotics -Continue pain medication and antiemetics as needed -GI prophylaxis Protonix and DVT prophylaxis subcu heparin Physician Commutator Operator note has been reviewed by physician. Signing provider agrees with the documented findings, assessment, and plan of care. Objective - Vital Signs Vital signs: Vital Signs Temp 98.5 F 05/13/22 12:45 Pulse 79 05/13/22 12:45 Resp 18 05/13/22 12:45 BP 123/79 05/13/22 12:45 Pulse Ox 99 05/13/22 12:45 FiO2 Intake & Output 05/12/22 05/13/22 05/13/22 18:59 06:59 18:59 Intake Total 750 Balance 750 Weight 99.79 kg 99 kg Intake: Intake, IV Titration 750 Amount Sodium Chloride 0.9% 1, 750 000 ml @ 75 mls/hr IV . [id number] [facility] Rx#:[id number] Other: Voiding Method Urinal Urinal # Voids 1 - Labs CBC & Chem 7: 05/13/22 07:04 05/13/22 07:04 Labs: Abnormal Lab Results - Last 24 Hours (Table) 05/12/22 05/12/22 05/13/22 Range/Units 13:38 13:38 07:04 WBC 16.0 H 12.30 H (3.8-10.6) k/uL Neutrophils # 13.5 H 9.24 H (1.3-7.7) k/uL Monocytes # 1.02 H (0.20-1.00) X 10*3/uL Sodium 136 L (137-145) mmol/L
[2022-05-13] MEDS: IPRATROPIUM-ALBUTEROL 3 ML NEB INHALATION SCH ×2 (15:35→20:09)
[2022-05-14] MEDS: HEPARIN SODIUM,PORCINE/PF 5,000 UNIT/0.5 ML SYRINGE SQ SCH ×2 (07:49→20:03)
[2022-05-14] MEDS: PANTOPRAZOLE 40 MG/10 ML VIAL IVP SCH (07:50)
[2022-05-14] MEDS: PIPERACILLIN-TAZOBACTAM 3.375 GM in SODIUM CHLORIDE 0.9% 100 ML IVPB SCH ×3 (07:50→23:30)
[2022-05-14] MEDS: IPRATROPIUM-ALBUTEROL 3 ML NEB INHALATION SCH ×3 (08:07→20:07)
[2022-05-14] MEDS: SYMBICORT 80-4.5 MCG INHALER INHALATION SCH ×2 (08:07→20:08)
--- NOTE | 2022-05-14 08:08 | XR ---
EXAMINATION TYPE: XR abdomen 2V DATE OF EXAM: 05/14/2022 6:59 AM INDICATION: Patient age:Male; 67 years old; Reason for study: follow up on SBO; COMPARISON: 11/18/2021 TECHNIQUE: Two views of the abdomen were obtained. FINDINGS: Nasogastric tube side-port in the distal esophagus. Scattered degeneration changes througho ut the spine. Right upper quadrant cholecystectomy clips. Gaseous distention of a few loops of small bowel in the right abdomen up to 4.2 cm in diameter. IMPRESSION: Nasogastric tube in high position. Advancement of 10 cm for optimal placement is recommended. Loops of small bowel consistent with history of small bowel obstruction.
[2022-05-14 08:30] LABS: Basophils # (A) 0.03 X 10*3/uL (0.00-0.10); Basophils % (A) 0.3 %; Eosinophils # (A) 0.17 X 10*3/uL (0.04-0.35); Eosinophils % (A) 1.6 %; HGB 14.4 g/dL (13.0-17.0); Immature Grans, Automated 0.4 %; Lymphocytes # (A) 1.97 X 10*3/uL (0.90-5.00); Lymphocytes % (A) 18.4 %; MCH 29.7 pg (27.0-32.0); MCV 92.8 fL (80.0-97.0); Monocytes # (A) 0.85 X 10*3/uL (0.20-1.00); NRBC Per 100 WBC 0 /100 WBCS (0.0-0.0); Neutrophils # (A) 7.63 X 10*3/uL (1.80-7.70); Neutrophils % (A) 71.3 %; Platelet Count 347 X 10*3/uL (140-440); RBC 4.85 X 10*6/uL (4.40-5.60); RDW 13.7 % (11.5-14.5); WBC 10.69 X 10*3/uL (4.50-10.00)
[2022-05-14 08:42] LABS: African American GFR (CKD) 107.9 (60.0-200.0); Albumin 3.7 g/dL (3.8-4.9); Albumin/Globulin Ratio 1.68 (1.60-3.17); Anion Gap 10.6 mmol/L (10.00-18.00); BUN/Creat Ratio 19.88 Ratio (12.00-20.00); Blood Urea Nitrogen 15.9 mg/dL (9.0-27.0); Calcium 8.7 mg/dL (8.7-10.3); Carbon Dioxide 24.4 mmol/L (20.0-27.5); Globulin 2.2 g/dL (1.6-3.3); Non-African American GFR(CKD) 93.1 (60.0-200.0); Total Bilirubin 0.4 mg/dL (0.30-1.20); Total Protein 5.9 g/dL (6.2-8.2)
--- NOTE | 2022-05-14 13:49 | P.PN ---
Subjective Progress Note Date: 05/14/22 CHIEF COMPLAINT: Abdominal pain HISTORY OF PRESENT ILLNESS: Patient reports that his abdominal pain continues to get better each day. He still has some pain located in the right lower abdomen. He has had very small amount of flatus about 3 times. Denies any nausea. NG tube output ileus in color with 350 out through the night and 200 this morning. Abdominal x-ray NG tube and high position. Advancement of 10 cm for optimal placement is recommended. Loops of small bowel consistent with history of small bowel obstruction. PHYSICAL EXAM: VITAL SIGNS: Reviewed. GENERAL: Well-developed in no acute distress. HEENT: No sclera icterus. Extraocular movements grossly intact. Moist buccal mucosa. Head is atraumatic, normocephalic. ABDOMEN: Abdomen is softer and less distended. Mild tenderness in the right side of the abdomen with palpation NEUROLOGIC: Alert and oriented. Cranial nerves II through XII grossly intact. ASSESSMENT: 1. Small bowel obstruction with transition point in the right lower quadrant likely due to adhesions noted on CAT scan 2. History of multiple small bowel obstructions and has required lysis of adhesions the past PLAN: -Continue NG tube for decompression -Advance NG tube -Keep patient nothing by mouth -Continue IV fluids -Continue antibiotics -Continue pain medication and antiemetics as needed -Encouraged patient to increase activity level -GI prophylaxis Protonix and DVT prophylaxis subcu heparin Physician Rn Clinician note has been reviewed by physician. Signing provider agrees with the documented findings, assessment, and plan of care. I have personally seen and examined the patient, reviewed the COMMUNITY LIAISON OFFICER /PAs history, exam and MDM and agree with the assessment and plan as written. Based on total visit time, I have performed more than 50% of the visit. As above: Patient had flatus today. He says his abdominal discomfort is improved. Abdominal x-rays noted. We'll repeat abdominal films tomorrow. Keep nasogastric tube low intermittent suction. Objective - Vital Signs Vital signs: Vital Signs Temp 97.9 F 05/14/22 13:35 Pulse 77 05/14/22 13:35 Resp 16 05/14/22 13:35 BP 165/78 05/14/22 13:35 Pulse Ox 95 05/14/22 13:35 FiO2 Intake & Output 05/13/22 05/14/22 05/14/22 18:59 06:59 18:59 Intake Total 0 Output Total 350 Balance -350 0 Intake: Oral 0 Output: Gastric Drainage 350 Other: Voiding Method Urinal Urinal Urinal # Voids 1 1 - Labs CBC & Chem 7: 05/14/22 06:26 05/14/22 06:26 Labs: Abnormal Lab Results - Last 24 Hours (Table) 05/14/22 05/14/22 Range/Units 06:26 06:26 WBC 10.69 H (4.50-10.00) X 10*3/uL Total Protein 5.9 L (6.2-8.2) g/dL Albumin 3.7 L (3.8-4.9) g/dL
--- NOTE | 2022-05-14 18:47 | P.PN ---
Subjective This is a pleasant 67 years old male with multiple medical problems including COPD, GERD, obesity and osteoarthritis, also he has history of recurrent bowel obstruction, presents with signs symptoms of obstructed bowel as well which is evident on CT of the abdomen and pelvis showing dilated small bowel loops 4.4 cm, also confirmed with abdominal x-ray today, however NG tube needs to be advanced and his been addressed with surgery team. Patient has NG tube in place with about 500 mL of dark green discharge, has minimal abdominal pain and tenderness and has no bowel movement or passing gas only. Leukocytosis improving down to 10.6. Patient remains on Zosyn normal saline Objective - Vital Signs Vital signs: Vital Signs Temp 98 F 05/14/22 07:47 Pulse 96 05/14/22 07:47 Resp 16 05/14/22 07:47 BP 148/82 05/14/22 07:47 Pulse Ox 93 L 05/14/22 07:47 FiO2 Intake & Output 05/13/22 05/14/22 05/14/22 18:59 06:59 18:59 Intake Total 0 Output Total 350 Balance -350 0 Intake: Oral 0 Output: Gastric Drainage 350 Other: Voiding Method Urinal Urinal Urinal # Voids 1 1 - Exam GENERAL: The patient is alert and oriented x3, not in any acute distress. Well developed, well nourished. HEENT: Pupils are round and equally reacting to light. EOMI. No scleral icterus. No conjunctival pallor. Normocephalic, atraumatic. No pharyngeal erythema. No thyromegaly. CARDIOVASCULAR: S1 and S2 present. No murmurs, rubs, or gallops. PULMONARY: Chest is clear to auscultation, no wheezing or crackles. -ABDOMEN: Soft, mild periumbilical tenderness, nondistended, normoactive bowel sounds. No palpable organomegaly. NG tube in place MUSCULOSKELETAL: No joint swelling or deformity. EXTREMITIES: No cyanosis, clubbing, or pedal edema. NEUROLOGICAL: Gross neurological examination did not reveal any focal deficits. SKIN: No rashes. no petechiae. - Labs CBC & Chem 7: 05/14/22 06:26 05/14/22 06:26 Labs: Abnormal Lab Results - Last 24 Hours (Table) 05/14/22 05/14/22 Range/Units 06:26 06:26 WBC 10.69 H (4.50-10.00) X 10*3/uL Total Protein 5.9 L (6.2-8.2) g/dL Albumin 3.7 L (3.8-4.9) g/dL Assessment and Plan Assessment: Recurrent small bowel obstruction COPD, not an active issue History of osteoarthritis History of GERD Obesity with BMI of 32.2 Plan: continue with bowel rest Pain management IV fluid Surgery consult Continue with Zosyn Labs and medication were reviewed.. Continue same treatment. Continue with symptomatic treatment. Resume home medication. Monitor lytes and vitals. DVT and GI prophylaxis. Further recommendations as per clinical course of the patie nt DVT prophylaxis: Subcutaneous heparin GI Prophylaxis: Ppi PT/OT: Pending Prognosis is guarded
[2022-05-15] MEDS: HYDROmorphone 1 MG/ML 1 ML SYRINGE IVP PRN (02:13)
[2022-05-15] MEDS: SYMBICORT 80-4.5 MCG INHALER INHALATION SCH ×2 (08:01→18:31)
[2022-05-15] MEDS: IPRATROPIUM-ALBUTEROL 3 ML NEB INHALATION SCH ×3 (08:01→18:31)
--- NOTE | 2022-05-15 08:31 | XR ---
EXAMINATION TYPE: XR abdomen 2V DATE OF EXAM: 05/15/2022 CLINICAL DATA: 67-year-old male follow-up bowel obstruction, [facility] COMPARISON: 05/14/[address] 05/12/2022 FINDINGS: NG tube courses below the diaphragm, now satisfactory. Extensive left basilar and retrocardiac opacit y is noted and increased from prior. Mildly dilated small bowel loops remain in the right side of the abdomen measuring up to 4.5 cm. Correa katharina, this is improved in comparison to 5.0 cm, previously. Overall relative paucity of colonic air re emili. Cholecystectomy clips. Degenerative levoconvex scoliosis lumbar spine. Surgical clips in the r ight paramedian pelvis. Redemonstrated dense pleural plaques overlying the left kidney diaphragm. IMPRESSION: 1. Persistent small bowel obstruction but with some interval improvement. There remains a lack of any significant colonic air. Right-sided small bowel loops now measure 4.5 cm versus 5.0 cm, previously. 2. Correlate for new airspace disease/pneumonia at the left base.
[2022-05-15] MEDS: PIPERACILLIN-TAZOBACTAM 3.375 GM in SODIUM CHLORIDE 0.9% 100 ML IVPB SCH ×2 (08:42→16:45)
[2022-05-15] MEDS: HEPARIN SODIUM,PORCINE/PF 5,000 UNIT/0.5 ML SYRINGE SQ SCH ×2 (08:42→19:50)
[2022-05-15] MEDS: PANTOPRAZOLE 40 MG/10 ML VIAL IVP SCH (08:43)
--- NOTE | 2022-05-15 10:07 | P.PN ---
Subjective Progress Note Date: 05/15/22 Principal diagnosis: Small bowel obstruction Patient says his abdomen feels softer. He once again did pass flatus when he was ambulating in the hallways. Abdominal x-rays performed today show persistent small bowel dilation with limited colonic air. Says his pain is slightly improved but still having some crampy pain at times. Objective - Vital Signs Vital signs: Vital Signs Temp 97.5 F L 05/15/22 07:40 Pulse 79 05/15/22 07:40 Resp 16 05/15/22 07:40 BP 146/77 05/15/22 07:40 Pulse Ox 92 L 05/15/22 07:40 FiO2 Intake & Output 05/14/22 05/15/22 05/15/22 18:59 06:59 18:59 Intake Total 100 Output Total 200 200 Balance -200 -100 Intake: Intake, IV Titration 100 Amount Piperacillin-Tazobactam 3 100 .375 gm In Sodium Chloride 0.9% 100 ml @ 25 mls/hr IVPB Q8HR [facility] Rx# :[id number] Oral 0 Output: Gastric Drainage 200 200 Other: Voiding Method Urinal Urinal # Voids 3 1 - Exam Abdomen: Soft, minimal distention, mild diffuse tenderness - Labs CBC & Chem 7: 05/14/22 06:26 05/14/22 06:26 Assessment and Plan (1) Small bowel obstruction Narrative/Plan: 67-year-old male with small bowel obstruction. Patient slowly improving with conservative approach. With multiple previous surgeries and possible hostile abdomen. We'll continue gastric decompression and bowel rest at this time. Monitor for improvement in bowel function. Current Visit: Yes Status: Acute Code(s): K56.69 - OTHER INTESTINAL OBSTRUCTION * DO NOT USE * SNOMED Code(s): 171606480
--- NOTE | 2022-05-15 12:49 | P.PN ---
Subjective This is a pleasant 67 years old male with multiple medical problems including COPD, GERD, obesity and osteoarthritis, also he has history of recurrent bowel obstruction, presents with signs symptoms of obstructed bowel as well which is evident on CT of the abdomen and pelvis showing dilated small bowel loops 4.4 cm, also confirmed with abdominal x-ray today, however NG tube needs to be advanced and his been addressed with surgery team. Patient has NG tube in place with about 500 mL of dark green discharge, has minimal abdominal pain and tenderness and has no bowel movement or passing gas only. Leukocytosis improving down to 10.6. Patient remains on Zosyn normal saline 05/15/2022 Patient still has NG tube in place with less discharge but still complaining of from abdominal pain of 4/10. No bowel movement, passing a little gas. Abdominal x-ray showing persistent SBO and correlated for possible left lower lobe infiltrate. Measurements on Zosyn and normal sinus 75 mL per hour If no improvement in patient may require surgery for surgery team recommendation Objective - Vital Signs Vital signs: Vital Signs Temp 97.5 F L 05/15/22 07:40 Pulse 79 05/15/22 07:40 Resp 16 05/15/22 07:40 BP 146/77 05/15/22 07:40 Pulse Ox 92 L 05/15/22 07:40 FiO2 Intake & Output 05/14/22 05/15/22 05/15/22 18:59 06:59 18:59 Intake Total 100 Output Total 200 200 Balance -200 -100 Intake: Intake, IV Titration 100 Amount Piperacillin-Tazobactam 3 100 .375 gm In Sodium Chloride 0.9% 100 ml @ 25 mls/hr IVPB Q8HR [facility] Rx# :[id number] Oral 0 Output: Gastric Drainage 200 200 Other: Voiding Method Urinal Urinal Urinal # Voids 3 1 - Exam GENERAL: The patient is alert and oriented x3, not in any acute distress. Well developed, well nourished. HEENT: Pupils are round and equally reacting to light. EOMI. No scleral icterus. No conjunctival pallor. Normocephalic, atraumatic. No pharyngeal erythema. No thyromegaly. CARDIOVASCULAR: S1 and S2 present. No murmurs, rubs, or gallops. PULMONARY: Chest is clear to auscultation, no wheezing or crackles. -ABDOMEN: Soft, mild periumbilical tenderness, nondistended, normoactive bowel sounds. No palpable organomegaly. NG tube in place MUSCULOSKELETAL: No joint swelling or deformity. EXTREMITIES: No cyanosis, clubbing, or pedal edema. NEUROLOGICAL: Gross neurological examination did not reveal any focal deficits. SKIN: No rashes. no petechiae. - Labs CBC & Chem 7: 05/14/22 06:26 05/14/22 06:26 Assessment and Plan Assessment: Recurrent small bowel obstruction COPD, not an active issue History of osteoarthritis History of GERD Obesity with BMI of 32.2 Plan: continue with bowel rest Pain management IV fluid Surgery consult Continue with Zosyn Labs and medication were reviewed.. Continue same treatment. Continue with symptomatic treatment. Resume home medication. Monitor lytes and vitals. DVT and GI prophylaxis. Further recommendations as per clinical course of the patient DVT prophylaxis: Subcutaneous heparin GI Prophylaxis: Ppi PT/OT: Pending Prognosis is guarded
[2022-05-16] MEDS: PIPERACILLIN-TAZOBACTAM 3.375 GM in SODIUM CHLORIDE 0.9% 100 ML IVPB SCH ×4 (00:08→23:22)
[2022-05-16] MEDS: IPRATROPIUM-ALBUTEROL 3 ML NEB INHALATION SCH ×3 (07:54→19:39)
[2022-05-16] MEDS: SYMBICORT 80-4.5 MCG INHALER INHALATION SCH ×2 (07:54→19:39)
[2022-05-16] MEDS: HEPARIN SODIUM,PORCINE/PF 5,000 UNIT/0.5 ML SYRINGE SQ SCH ×2 (08:27→20:21)
[2022-05-16] MEDS: PANTOPRAZOLE 40 MG/10 ML VIAL IVP SCH (08:27)
--- NOTE | 2022-05-16 11:58 | P.PN ---
Subjective This is a pleasant 67 years old male with multiple medical problems including COPD, GERD, obesity and osteoarthritis, also he has history of recurrent bowel obstruction, presents with signs symptoms of obstructed bowel as well which is evident on CT of the abdomen and pelvis showing dilated small bowel loops 4.4 cm, also confirmed with abdominal x-ray today, however NG tube needs to be advanced and his been addressed with surgery team. Patient has NG tube in place with about 500 mL of dark green discharge, has minimal abdominal pain and tenderness and has no bowel movement or passing gas only. Leukocytosis improving down to 10.6. Patient remains on Zosyn normal saline 05/15/2022 Patient still has NG tube in place with less discharge but still complaining of from abdominal pain of 4/10. No bowel movement, passing a little gas. Abdominal x-ray showing persistent SBO and correlated for possible left lower lobe infiltrate. Measurements on Zosyn and normal sinus 75 mL per hour If no improvement in patient may require surgery for surgery team recommendation 05/16/2012 Patient still does not have bowel movement, he has little passage of gas with straining, other than that he has minimal abdominal pain and NG tube in place with minimal Dr. Gonsalez discharge No fever and vitals stable Check labs tomorrow Follow-up with surgical team for further recommendation Objective - Vital Signs Vital signs: Vital Signs Temp 98.4 F 05/16/22 07:28 Pulse 79 05/16/22 07:28 Resp 16 05/16/22 07:28 BP 133/79 05/16/22 07:28 Pulse Ox 96 05/16/22 07:28 FiO2 Intake & Output 05/15/22 05/16/22 05/16/22 18:59 06:59 18:59 Intake Total 100 Output Total 400 Balance -300 Intake: Intake, IV Titration 100 Amount Piperacillin-Tazobactam 3 100 .375 gm In Sodium Chloride 0.9% 100 ml @ 25 mls/hr IVPB Q8HR [facility] Rx# :[id number] Output: Gastric Drainage 400 Other: Voiding Method Urinal Urinal Urinal # Voids 4 3 - Exam GENERAL: The patient is alert and oriented x3, not in any acute distress. Well developed, well nourished. HEENT: Pupils are round and equally reacting to light. EOMI. No scleral icterus. No conjunctival pallor. Normocephalic, atraumatic. No pharyngeal erythema. No thyromegaly. CARDIOVASCULAR: S1 and S2 present. No murmurs, rubs, or gallops. PULMONARY: Chest is clear to auscultation, no wheezing or crackles. -ABDOMEN: Soft, mild periumbilical tenderness, nondistended, normoactive bowel sounds. No palpable organomegaly. NG tube in place MUSCULOSKELETAL: No joint swelling or deformity. EXTREMITIES: No cyanosis, clubbing, or pedal edema. NEUROLOGICAL: Gross neurological examination did not reveal any focal deficits. SKIN: No rashes. no petechiae. - Labs CBC & Chem 7: 05/14/22 06:26 05/14/22 06:26 Assessment and Plan Assessment: Recurrent small bowel obstruction COPD, not an active issue History of osteoarthritis History of GERD Obesity with BMI of 32.2 Plan: continue with bowel rest Pain management IV fluid Surgery consult Continue with Zosyn Labs and medication were reviewed.. Continue same treatment. Continue with symptomatic treatment. Resume home medication. Monitor lytes and vitals. DVT and GI prophylaxis. Further recommendations as per clinical course of the patient DVT prophylaxis: Subcutaneous heparin GI Prophylaxis: Ppi PT/OT: Pending Prognosis is guarded
[2022-05-16 13:18] VITALS: BMI 32.2
--- NOTE | 2022-05-16 19:29 | P.PN ---
Subjective Progress Note Date: 05/16/22 CHIEF COMPLAINT: Small bowel obstruction HISTORY OF PRESENT ILLNESS: The patient is a 67-year-old male with recurrent small bowel obstruction. Patient reports increase passage of flatus and had a bowel movement today. ROS: No reports of nausea and vomiting. Had bowel movements. No fevers or chills. No new chest pain. No productive sputum PHYSICAL EXAM: VITAL SIGNS: Reviewed CONSTITUTIONAL: Well developed and in no acute distress. EYES: Conjuctivae without sclera icterus. Extraocular movements grossly intact. HEAD, EARS, NOSE, THROAT: Moist buccal mucosa. Head is atraumatic, normocephali c. Hears conversational speech. No nasal drainage. NG tube present. RESPIRATORY: Non-labored respirations and equal bilateral excursions. CARDIOVASCULAR: Palpable 2+ radial pulses. ABDOMEN: No peritonitis. MUSCULOSKELETAL: No gross deformity of the lower extremities noted. No clubbing. No cyanosis. SKIN: Good skin turgor. Well perfused. NEUROLOGIC: Cranial nerves II through XII grossly intact. No focal or lateralizing signs. PSYCH: Appropriate affect. Alert and oriented to person, place and time. CLINICAL LABS: Reviewed. WBC 10.69 05/14/22 ASSESSMENT: 1. Small bowel obstruction PLAN: 1. Recommend abdominal x-ray as he is passing flatus, having bowel movements and without abdominal pain. 2. May start clear liquid diet. Objective - Vital Signs Vital signs: Vital Signs Temp 98.3 F 05/16/22 12:36 Pulse 72 05/16/22 12:36 Resp 17 05/16/22 12:36 BP 146/81 05/16/22 12:36 Pulse Ox 95 05/16/22 12:36 FiO2 Intake & Output 05/16/22 05/16/22 05/17/22 06:59 18:59 06:59 Intake Total 100 Output Total 400 100 Balance -300 -100 Weight 99 kg Intake: Intake, IV Titration 100 Amount Piperacillin-Tazobactam 3 100 .375 gm In Sodium Chloride 0.9% 100 ml @ 25 mls/hr IVPB Q8HR [facility] Rx# :[id number] Output: Gastric Drainage 400 100 Other: Voiding Method Urinal Urinal # Voids 3 3 # Bowel Movements 1 - Labs CBC & Chem 7: 05/17/22 07:21 05/17/22 07:21
--- NOTE | 2022-05-16 20:29 | XR ---
EXAMINATION TYPE: XR abdomen 2V DATE OF EXAM: 05/16/2022 COMPARISON: Yesterday HISTORY: Abdominal pain TECHNIQUE: Supine and upright views FINDINGS: There is no sign of intestinal obstruction or pneumoperitoneum. Fecal pattern is normal. No sign of a mass. There are no pathologic calcifications over the kidneys. There is nasogastric tube a pparently in the distal stomach. There is slight lumbar levoscoliosis. There is a amorphous calcifica tion at the left lung base. IMPRESSION: Calcification at the left lung base consistent with calcified pleural plaque. Nonacute Rufino wel gas pattern. No change compared to old exam.
[2022-05-17] MEDS: SYMBICORT 80-4.5 MCG INHALER INHALATION SCH ×2 (07:43→19:08)
[2022-05-17] MEDS: IPRATROPIUM-ALBUTEROL 3 ML NEB INHALATION SCH ×3 (07:43→19:08)
[2022-05-17 07:54] LABS: Basophils % (A) 0 %; Eosinophils # (A) 0.1 k/uL (0-0.7); Eosinophils % (A) 2 %; HCT 41.4 % (39.0-53.0); HGB 13.9 gm/dL (13.0-17.5); Lymphocytes # (A) 1.2 k/uL (1.0-4.8); Lymphocytes % (A) 17 %; MCH 30.9 pg (25.0-35.0); MCHC 33.6 g/dL (31.0-37.0); Mean Platelet Volume 8.5; Monocytes # (A) 0.5 k/uL (0-1.0); Monocytes % (A) 7 %; Neutrophils # (A) 5.1 k/uL (1.3-7.7); Neutrophils % (A) 73 %; Platelet Count 303 k/uL (150-450); RDW 13.1 % (11.5-15.5); WBC 7.1 k/uL (3.8-10.6)
[2022-05-17 08:10] LABS: African American GFR (CKD) >90 (>60 ml/min/1.73 sqM); Anion Gap 10 mmol/L; Blood Urea Nitrogen 8 mg/dL (9-20); Calcium 8.4 mg/dL (8.4-10.2); Carbon Dioxide 18 mmol/L (22-30); Chloride 111 mmol/L (98-107); Glucose 69 mg/dL (74-99); Magnesium 1.6 mg/dL (1.6-2.3); Non-African American GFR(CKD) >90 (>60 ml/min/1.73 sqM); Potassium 3.9 mmol/L (3.5-5.1); Sodium 139 mmol/L (137-145)
[2022-05-17] MEDS: PIPERACILLIN-TAZOBACTAM 3.375 GM in SODIUM CHLORIDE 0.9% 100 ML IVPB SCH ×3 (08:21→23:13)
[2022-05-17] MEDS: HEPARIN SODIUM,PORCINE/PF 5,000 UNIT/0.5 ML SYRINGE SQ SCH ×2 (08:21→20:27)
[2022-05-17] MEDS: PANTOPRAZOLE 40 MG/10 ML VIAL IVP SCH (08:22)
--- NOTE | 2022-05-17 13:16 | P.PN ---
Subjective This is a pleasant 67 years old male with multiple medical problems including COPD, GERD, obesity and osteoarthritis, also he has history of recurrent bowel obstruction, presents with signs symptoms of obstructed bowel as well which is evident on CT of the abdomen and pelvis showing dilated small bowel loops 4.4 cm, also confirmed with abdominal x-ray today, however NG tube needs to be advanced and his been addressed with surgery team. Patient has NG tube in place with about 500 mL of dark green discharge, has minimal abdominal pain and tenderness and has no bowel movement or passing gas only. Leukocytosis improving down to 10.6. Patient remains on Zosyn normal saline 05/15/2022 Patient still has NG tube in place with less discharge but still complaining of from abdominal pain of 4/10. No bowel movement, passing a little gas. Abdominal x-ray showing persistent SBO and correlated for possible left lower lobe infiltrate. Measurements on Zosyn and normal sinus 75 mL per hour If no improvement in patient may require surgery for surgery team recommendation 05/16/2012 Patient still does not have bowel movement, he has little passage of gas with straining, other than that he has minimal abdominal pain and NG tube in place with minimal Dr. Gonsalez discharge No fever and vitals stable Check labs tomorrow Follow-up with surgical team for further recommendation 05/17/2022 Patient had small bowel movements yesterday No significant abdominal pain or tenderness However NG tube In a Place this morning to see how he tolerates his diet with surgery team followed closely. History of obesity back to normal 7.1 Remains on Zosyn and gentle hydration normal saline 75 mL/h Objective - Vital Signs Vital signs: Vital Signs Temp 97.7 F 05/17/22 07:45 Pulse 76 05/17/22 07:45 Resp 18 05/17/22 07:45 BP 143/87 05/17/22 07:45 Pulse Ox 95 05/17/22 07:45 FiO2 Intake & Output 05/16/22 05/17/22 05/17/22 18:59 06:59 18:59 Output Total 500 Balance -500 Weight 99 kg Output: Gastric Drainage 500 Other: Voiding Method Urinal Urinal # Voids 3 # Bowel Movements 1 - Exam GENERAL: The patient is alert and oriented x3, not in any acute distress. Well developed, well nourished. HEENT: Pupils are round and equally reacting to light. EOMI. No scleral icterus. No conjunctival pallor. Normocephalic, atraumatic. No pharyngeal erythema. No thyromegaly. CARDIOVASCULAR: S1 and S2 present. No murmurs, rubs, or gallops. PULMONARY: Chest is clear to auscultation, no wheezing or crackles. -ABDOMEN: Soft, mild periumbilical tenderness, nondistended, normoactive bowel sounds. No palpable organomegaly. NG tube in place MUSCULOSKELETAL: No joint swelling or deformity. EXTREMITIES: No cyanosis, clubbing, or pedal edema. NEUROLOGICAL: Gross neurological examination did not reveal any focal deficits. SKIN: No rashes. no petechiae. - Labs CBC & Chem 7: 05/17/22 07:21 05/17/22 07:21 Labs: Abnormal Lab Results - Last 24 Hours (Table) 05/17/22 Range/Units 07:21 Chloride 111 H (98-107) mmol/L Carbon Dioxide 18 L (22-30) mmol/L BUN 8 L (9-20) mg/dL Glucose 69 L (74-99) mg/dL Assessment and Plan Assessment: Recurrent small bowel obstruction COPD, not an active issue History of osteoarthritis History of GERD Obesity with BMI of 32.2 Plan: Advance diet per surgery team Pain management IV fluid Surgery consult Continue with Zosyn Labs and medication were reviewed.. Continue same treatment. Continue with symptomatic treatment. Resume home medication. Monitor lytes and vitals. DVT and GI prophylaxis. Further recommendations as per clinical course of the patient DVT prophylaxis: Subcutaneous heparin GI Prophylaxis: Ppi PT/OT: Pending Prognosis is guarded
--- NOTE | 2022-05-17 21:36 | P.PN ---
Subjective Progress Note Date: 05/17/22 CHIEF COMPLAINT: Small bowel obstruction HISTORY OF PRESENT ILLNESS: The patient is a 67-year-old male with recurrent small bowel obstruction. He reports large bowel movements and moderate increase in flatus. He tolerated clear liquid diet without nausea or vomiting. ROS: No reports of nausea and vomiting. Had bowel movements. No fevers or chills. No new chest pain. No productive sputum PHYSICAL EXAM: VITAL SIGNS: Reviewed CONSTITUTIONAL: Well developed and in no acute distress. EYES: Conjuctivae without sclera icterus. Extraocular movements grossly intact. HEAD, EARS, NOSE, THROAT: Moist buccal mucosa. Head is atraumatic, normocephalic. Hears conversational speech. No nasal drainage. NG tube present minimal output. RESPIRATORY: Non-labored respirations and equal bilateral excursions. CARDIOVASCULAR: Palpable 2+ radial pulses. ABDOMEN: No peritonitis. MUSCULOSKELETAL: No gross deformity of the lower extremities noted. No clubbing. No cyanosis. SKIN: Good skin turgor. Well perfused. NEUROLOGIC: Cranial nerves II through XII grossly intact. No focal or lateralizing signs. PSYCH: Appropriate affect. Alert and oriented to person, place and time. CLINICAL LABS: Reviewed. WBC normal REPORTS: Abdominal xray report demonstrates no bowel obstruction ASSESSMENT: 1. Small bowel obstruction PLAN: 1. Will advance diet to soft diet. 2. Discontinue NG tube. 3. Discussion of avoiding high fiber foods reviewed. Objective - Vital Signs Vital signs: Vital Signs Temp 97.8 F 05/17/22 20:00 Pulse 86 05/17/22 20:00 Resp 16 05/17/22 20:00 BP 131/86 05/17/22 20:00 Pulse Ox 96 05/17/22 20:00 FiO2 Intake & Output 05/17/22 05/17/22 05/18/22 06:59 18:59 06:59 Intake Total 200 Output Total 500 Balance -500 200 Intake: Intake, IV Titration 200 Amount Piperacillin-Tazobactam 3 200 .375 gm In Sodium Chloride 0.9% 100 ml @ 25 mls/hr IVPB Q8HR [facility] Rx# :[id number] Output: Gastric Drainage 500 Other: Voiding Method Urinal - Labs CBC & Chem 7: 05/17/22 07:21 05/17/22 07:21 Labs: Abnormal Lab Results - Last 24 Hours (Table) 05/17/22 Range/Units 07:21 Chloride 111 H (98-107) mmol/L Carbon Dioxide 18 L (22-30) mmol/L BUN 8 L (9-20) mg/dL Glucose 69 L (74-99) mg/dL
[2022-05-18] MEDS: SYMBICORT 80-4.5 MCG INHALER INHALATION SCH (07:50)
[2022-05-18] MEDS: IPRATROPIUM-ALBUTEROL 3 ML NEB INHALATION SCH ×2 (07:50→11:39)
[2022-05-18] MEDS: HEPARIN SODIUM,PORCINE/PF 5,000 UNIT/0.5 ML SYRINGE SQ SCH (08:35)
[2022-05-18] MEDS: PIPERACILLIN-TAZOBACTAM 3.375 GM in SODIUM CHLORIDE 0.9% 100 ML IVPB SCH ×2 (08:35→16:25)
[2022-05-18] MEDS: PANTOPRAZOLE 40 MG/10 ML VIAL IVP SCH (08:35)
[2022-05-18 13:57] VITALS: BP 115/76; PULSE 88; RESP 18; TEMP 97.8
--- NOTE | 2022-05-18 18:19 | P.DS ---
Providers Date of admission: 05/12/22 14:50 Expected date of discharge: 05/18/22 Attending physician: Murphy Miner Consults: 05/12/22 14:50 Consult Physician Urgent Consulting Provider: Austen Sidhu Consult Reason/Comments: Medical management Do you want consulting provider notified?: Yes Primary care physician: Uriel Pendleton [facility] Course: Patient's bowel obstruction clinically resolved. His tolerating diet passing flatus and bowel was. Abdominal x-ray confirmed resolution of bowel obstruction. Follow-up as outpatient. Plan - Discharge Summary Discharge Rx Participant: No New Discharge Prescriptions: Continue RX: Lansoprazole 30 mg PO DAILY RX: Garlic 1 tab PO DAILY RX: Multivit-Min/FA/Lycopen/Lutein [Centrum Silver Men Tablet] 1 tab PO DAILY RX: Fluticasone/Umeclidin/Vilanter [Trelegy Ellipta 200-62.5-25] 1 puff INHALATION RT-DAILY Discharge Medication List RX: Garlic 1 tab PO DAILY 10/12/14 [History] RX: Lansoprazole 30 mg PO DAILY 10/12/14 [History] RX: Fluticasone/Umeclidin/Vilanter [Trelegy Ellipta 200-62.5-25] 1 puff INHALATION RT-DAILY 05/12/22 [History] RX: Multivit-Min/FA/Lycopen/Lutein [Centrum Silver Men Tablet] 1 tab PO DAILY 05/12/22 [History] Follow up Appointment(s)/Referral(s): Uriel Pendleton MD [Primary Care Provider] - 1-2 days Murphy Miner MD [STAFF PHYSICIAN] - 1 Week Patient Instructions/Handouts: Bowel Obstruction (DC) Discharge Disposition: HOME SELF-CARE
--- NOTE | 2022-05-18 18:20 | P.PN ---
Subjective Progress Note Date: 05/18/22 67 years old male with multiple medical problems including COPD, GERD, obesity and osteoarthritis, also he has history of recurrent bowel obstruction, presents with signs symptoms of obstructed bowel as well which is evident on CT of the abdomen and pelvis showing dilated small bowel loops 4.4 cm, also confirmed with abdominal x-ray today, however NG tube needs to be advanced and his been addressed with surgery team. Patient has NG tube in place with about 500 mL of dark green discharge, has minimal abdominal pain and tenderness and has no bowel movement or passing gas only. Leukocytosis improving down to 10.6. Patient remains on Zosyn normal saline Objective - Vital Signs Vital signs: Vital Signs Temp 97.8 F 05/17/22 20:00 Pulse 86 05/17/22 20:00 Resp 16 05/17/22 20:00 BP 131/86 05/17/22 20:00 Pulse Ox 96 05/17/22 20:00 FiO2 Intake & Output 05/17/22 05/17/22 05/18/22 06:59 18:59 06:59 Intake Total 200 Output Total 500 Balance -500 200 Intake: Intake, IV Titration 200 Amount Piperacillin-Tazobactam 3 200 .375 gm In Sodium Chloride 0.9% 100 ml @ 25 mls/hr IVPB Q8HR COUNT INCLUDES THE [facility] Rx# :[id number] Output: Gastric Drainage 500 Other: Voiding Method Urinal Urinal - Exam ENT: Pupils are round and equally reacting to light. EOMI. No scleral icterus. No conjunctival pallor. Normocephalic, atraumatic. No pharyngeal erythema. No thyromegaly. CARDIOVASCULAR: S1 and S2 present. No murmurs, rubs, or gallops. PULMONARY: Chest is clear to auscultation, no wheezing or crackles. -ABDOMEN: Soft, mild periumbilical tenderness, nondistended, normoactive bowel sounds. No palpable organomegaly. NG tube in place MUSCULOSKELETAL: No joint swelling or deformity. EXTREMITIES: No cyanosis, clubbing, or pedal edema. NEUROLOGICAL: Gross neurological examination did not reveal any focal deficits. SKIN: No rashes. no petechiae. - Labs CBC & Chem 7: 05/17/22 07:21 05/17/22 07:21 Labs: Abnormal Lab Results - Last 24 Hours (Table) 01/01/23 Range/Units 07:21 Chloride 111 H (98-107) mmol/L Carbon Dioxide 18 L (22-30) mmol/L BUN 8 L (9-20) mg/dL Glucose 69 L (74-99) mg/dL Assessment and Plan Assessment: Recurrent small bowel obstruction COPD, not an active issue History of osteoarthritis History of GERD Obesity with BMI of 32.2 Plan: Advance diet per surgery team Pain management IV fluid Surgery consult Continue with Zosyn Labs and medication were reviewed.. Continue same treatment. Continue with sym ptomatic treatment. Resume home medication. Monitor lytes and vitals. DVT and GI prophylaxis. Further recommendations as per clinical course of the patient DVT prophylaxis: Subcutaneous heparin GI Prophylaxis: Ppi PT/OT: Pending
== END 2022-05-18 18:35 | disposition home or self-care (01) | DRG 390 ==
LOC: EC 12:17 → 5NMEDONC 14:50
PROVIDERS: ADMIT Surgery; ATTEND Surgery
PROC: 0D9670Z Drainage of Stomach with Drainage Device, Via Natural or Artificial Opening (ICD-10-PCS; principal; 2022-05-13)
DX: K56.50 Intestinal adhesions [bands], unspecified as to partial versus complete obstruction (principal); J44.9 Chronic obstructive pulmonary disease, unspecified; E66.01 Morbid (severe) obesity due to excess calories; K21.9 Gastro-esophageal reflux disease without esophagitis; M19.90 Unspecified osteoarthritis, unspecified site; K57.30 Diverticulosis of large intestine without perforation or abscess without bleeding; E66.9 Obesity, unspecified; F10.20 Alcohol dependence, uncomplicated; Z68.32 Body mass index [BMI] 32.0-32.9, adult; Z90.49 Acquired absence of other specified parts of digestive tract; Z98.1 Arthrodesis status; Z87.19 Personal history of other diseases of the digestive system; Z86.010 Personal history of colon polyps; Z77.090 Contact with and (suspected) exposure to asbestos; Z59.00 Homelessness unspecified
CPT/HCPCS: 36415; 74019; 74176; 80048; 80053; 82150; 83690; 83735; 85025; 93005; 96361; 96374; 96375; 99285

== ENCOUNTER → 2022-06-16 | Outpatient (CLI) | payer BC, MEDICARE ==
[2022-06-16 09:45] LABS: African American GFR (CKD) >90 (>60 ml/min/1.73 sqM); Blood Urea Nitrogen 8 mg/dL (9-20); Non-African American GFR(CKD) >90 (>60 ml/min/1.73 sqM)
--- NOTE | 2022-06-16 11:28 | CT ---
EXAMINATION TYPE: CT abdomen pelvis w con CT DLP: 1331 mGycm, Automated exposure control for dose reduction was used. DATE OF EXAM: 06/16/2022 11:17 AM COMPARISON: CT abdomen pelvis most recent from 05/12/2022. CLINICAL INDICATION:Male, 67 years old with history of K56.60; ABDOMINAL PAIN, POSSIBLE STOMACH ULCER OR HIATAL HERNIA, RECENT BOWEL OBSTRUCTION TECHNIQUE: Standard CT of the abdomen and pelvis following the administration of 70 cc of Isovue 30 0 IV contrast material and oral contrast. Coronal and sagittal reformats were performed. FINDINGS: LOWER CHEST: Calcified pleural plaques left lung base redemonstrated. Calcified granuloma within the right lung base. Similar bibasilar scarring. Mild cardiomegaly. ABDOMEN LIVER: Unremarkable GALLBLADDER AND BILE DUCTS: The gallbladder is surgically absent. No biliary duct dilatation. PANCREAS: Unremarkable. SPLEEN: Unremarkable. ADRENAL GLANDS: Unremarkable. KIDNEYS AND URETERS: No evidence of hydronephrosis or renal calculus. The kidneys enhance symmetrical ly without suspicious focal lesion. PELVIS BLADDER: Incompletely distended but grossly unremarkable. REPRODUCTIVE: Unremarkable. ABDOMEN & PELVIS STOMACH AND BOWEL: Small hiatal hernia, duodenum is unremarkable. Enteric contrast reaches the cecum. Resolution of previously demonstrated small bowel obstruction. No focal wall thickening or surroundi ng inflammatory changes.. PERITONEUM: No evidence of pneumoperitoneum or free fluid. VASCULATURE: Mild atherosclerotic calcifications are present throughout the abdominal aorta and its b ranches. No evidence of aortic aneurysm. MUSCULOSKELETAL: No acute osseous abnormalities. Moderate disc degeneration changes are present throu ghout the thoracolumbar spine. Grade 1 anterolisthesis of L4 on L5 without evidence of pars defects. Mild retrolisthesis of L3 and L4. LYMPH NODES: No gross evidence for lymphadenopathy. SOFT TISSUE/ABDOMINAL WALL: Postsurgical changes of the intra-abdominal wall with tiny fat filled umb ilical hernia. IMPRESSION: 1. No acute abdominal/pelvic process. Resolution of previously demonstrated small bowel obstruction. 2. Small hiatal hernia.
== END | disposition home or self-care (01) ==
LOC: RADCTMAIN 09:06
PROVIDERS: ATTEND Surgery
DX: K44.9 Diaphragmatic hernia without obstruction or gangrene (principal); K56.609 Unspecified intestinal obstruction, unspecified as to partial versus complete obstruction
CPT/HCPCS: 82565; 84520; 74177; 36415; Q9967

== ENCOUNTER 2022-07-31 07:56 | Day surgery (SDC) | payer BC, MEDICARE ==
[~2022-07-31 07:56] MED LIST changes: -ACETAMINOPHEN TAB 500 MG TAB PO ONE; +ACETAMINOPHEN TAB 500 MG TAB PO PRN; -DEXAMETHASONE SOD PHOSPHATE 10 MG/ML 1 ML VIAL IV ONE; +DEXAMETHASONE SOD PHOSPHATE 4 MG/ML 1 ML VIAL IV ONE; +HEPARIN SODIUM,PORCINE/PF 5,000 UNIT/0.5 ML SYRINGE SQ PRN; +LACTATED RINGERS 1,000 ML IV SCH; +LIDOCAINE 1% (10MG/ML) FOR IV START INTRADERMA PRN; -MELOXICAM 7.5 MG TAB PO ONE; -MIDAZOLAM 2 MG/2 ML VIAL IV PRN; -MORPHINE SULFATE 4 MG/ML SYRINGE IV PRN; -ROPIVACAINE 246.25 MG, EPINEPHrine 0.5 MG, KETOROLAC 30 MG, cloNIDine HCL/PF 80 MCG, WA... MISCELLANE ONE; -SCOPOLAMINE 1.5MG/72HR PATCH TRANSDERM ONE; -TRANEXAMIC ACID 1,000 MG in SODIUM CHLORIDE 0.9% 50 ML IVPB ONE; -ceFAZolin IN SWFI 2 GM/20 ML SYRINGE IVP ONE
[2022-07-31] MEDS ORDERED: MIDAZOLAM 2 MG/2 ML VIAL ONE (10:09)
[2022-07-31] MEDS ORDERED: PROPOFOL 10 MG/ML 20 ML VIAL IV ONE (10:09)
[2022-07-31] MEDS ORDERED: KETAMINE 10 MG/ML 20 ML VIAL ONE (10:09)
[2022-07-31] MEDS ORDERED: NEOSTIGMINE 1 MG/ML 10 ML VIAL ONE (10:09)
[2022-07-31] MEDS ORDERED: KETOROLAC 30 MG/ML 1 ML VIAL ONE (10:09)
[2022-07-31] MEDS ORDERED: PHENYLEPHRINE-0.9% NACL SYG 1,000 MCG/10 ML SYRINGE ONE (10:09)
[2022-07-31] MEDS ORDERED: SUCCINYLCHOLINE CHLORIDE 200 MG/10 ML VIAL IV ONE (10:09)
[2022-07-31] MEDS ORDERED: LIDOCAINE 2% INJ 20 MG/ML (2 ML VIAL) ONE (10:09)
[2022-07-31] MEDS ORDERED: ROCURONIUM 10 MG/ML (5 ML VIAL) IV ONE (10:09)
[2022-07-31] MEDS ORDERED: fentaNYL (PF) 50 MCG/ML 2 ML AMP ONE (10:09)
[2022-07-31] MEDS ORDERED: BUPIVACAIN-EPI 0.25%-1:200,000 30 ML VIAL SQ ONE (10:42)
[2022-07-31] MEDS ORDERED: ONDANSETRON 4 MG/2 ML VIAL IVP PRN (11:10)
[2022-07-31] MEDS ORDERED: NALOXONE 0.4 MG/ML 1 ML VIAL IV PRN (11:10)
[2022-07-31] MEDS ORDERED: HYDROcodone/APAP 5-325MG 1 EACH TAB PO PRN (11:10)
[2022-07-31] MEDS ORDERED: LACTATED RINGERS 1,000 ML IV ONE (11:10)
[2022-07-31] MEDS ORDERED: ACETAMINOPHEN TAB 325 MG TAB PO PRN (11:10)
[2022-07-31] MEDS ORDERED: HYDROmorphone 1 MG/ML 1 ML SYRINGE IVP PRN (11:10)
--- NOTE | 2022-07-31 11:10 | P.OP ---
Date of Procedure: 07/31/22 Preoperative Diagnosis: . GERD Postoperative Diagnosis: GERD Procedure(s) Performed: Laparoscopic Nirmal fundal plication Anesthesia: MARK ANTHONY Surgeon: Murphy Miner Estimated Blood Loss (ml): 5 Pathology: none sent Condition: stable Disposition: PACU Description of Procedure: HThe patient was placed on the operating table in the supine position. The patient received general anesthesia. And was placed in dorsal lithotomy position. The patient was prepped and draped in the usual sterile fashion. The skin incision sites were anesthetized with 1% local Xylocaine. The skin was incised in the left periumbilical area and then using a blade less 5 mm trocar under direct visualization panel cavity was entered. After adequate insufflation the laparoscope was then placed into the peritoneal cavity. Next a 5 mm trochars placed in the right epigastric position. Another 5 millimeter trocar the right lateral position. Another 5 millimeter trocar in the left lateral position a 5 mm trocar is placed in the left epigastric position. And then the initial 5 mm trocar was exchanged for a 10 mm trocar. The left lateral lobe liver was retracted. The hernia was seen. The crural defect was then dissected using the Harmonic scissors device. A 360 crural dissection was performed the esophagus stomach was reduced back into the peritoneal Cavity. The crural defect was then closed using 2-0 Ethibond suture. Next the fundus of the stomach was mobilized using the [place] scissors device. and then a 58- [place] bougie dilator was placed oropharynx passed into the esophagus and stomach the fundal plication wrap was then performed by grasping the fundus posteriorly and bringing it around the esophagus and stomach fundoplication was then performed using 2-0 Ethibond suture. Care was taken that the fundal location rested over top of the intra-abdominal esophagus. There was no injury seen to the stomach or esophagus. The dilator was then withdrawn. The abdomen was irrigated there is no bleeding seen. The trochars were then withdrawn and then skin incision sites were closed using 3-0 Monocryl suture Steri-Strips are applied. Patient thought procedure well and sent to recovery room in stable condition.
[2022-07-31] MEDS: HYDROmorphone 0.5 MG/0.5 ML SYRINGE IVP PRN ×3 (11:42→12:14)
[2022-07-31] MEDS: KETOROLAC 15 MG/ML 1 ML VIAL IVP SCH ×3 (15:55→23:53)
[2022-08-01] MEDS: KETOROLAC 15 MG/ML 1 ML VIAL IVP SCH ×4 (05:18→23:54)
[2022-08-01] MEDS: VIT A,C & E-LUTEIN-MINERALS 1 EACH TAB PO SCH (08:04)
[2022-08-01] MEDS: ENOXAPARIN 40 MG/0.4 ML SYRINGE SQ SCH (08:04)
[2022-08-01] MEDS: PANTOPRAZOLE 40 MG TABLET PO SCH (08:04)
[2022-08-01] MEDS: CHOLECALCIFEROL 25 MCG (1000 IU) TABLET PO SCH (08:04)
[2022-08-01] MEDS ORDERED: TAMSULOSIN 0.4 MG CAP.ER.24H PO STA (09:05)
[2022-08-01] MEDS: IPRATROPIUM 0.5 MG/2.5 ML NEBU INHALATION SCH ×4 (09:24→19:12)
[2022-08-01] MEDS: SYMBICORT 80-4.5 MCG INHALER INHALATION SCH ×2 (09:24→19:12)
[2022-08-01 09:46] LABS: African American GFR (CKD) 109.3 (60.0-200.0); Anion Gap 8.8 mmol/L (10.00-18.00); BUN/Creat Ratio 12.62 Ratio (12.00-20.00); Blood Urea Nitrogen 9.8 mg/dL (9.0-27.0); Calcium 9.4 mg/dL (8.7-10.3); Carbon Dioxide 25.6 mmol/L (20.0-27.5); Non-African American GFR(CKD) 94.3 (60.0-200.0); Potassium 4.4 mmol/L (3.5-5.5)
[2022-08-01 09:48] LABS: Basophils # (A) 0.02 X 10*3/uL (0.00-0.10); Basophils % (A) 0.1 %; Eosinophils # (A) 0.03 X 10*3/uL (0.04-0.35); Eosinophils % (A) 0.2 %; HCT 42.4 % (39.6-50.0); HGB 13.5 g/dL (13.0-17.0); Immature Grans, Automated 0.4 %; Lymphocytes # (A) 1.92 X 10*3/uL (0.90-5.00); MCH 29.7 pg (27.0-32.0); MCHC 31.8 g/dL (32.0-37.0); MCV 93.2 fL (80.0-97.0); Mean Platelet Volume 11.6 fL (9.5-12.2); Monocytes # (A) 1.05 X 10*3/uL (0.20-1.00); Monocytes % (A) 7.7 %; NRBC Per 100 WBC 0 /100 WBCS (0.0-0.0); Neutrophils # (A) 10.63 X 10*3/uL (1.80-7.70); Neutrophils % (A) 77.6 %; Platelet Count 356 X 10*3/uL (140-440); RBC 4.55 X 10*6/uL (4.40-5.60); RDW 13.9 % (11.5-14.5)
--- NOTE | 2022-08-01 09:52 | P.DS ---
Providers Date of admission: 07/31/2022 Expected date of discharge: 08/01/22 Attending physician: Murphy Miner Consults: 07/31/22 11:10 Consult Physician Routine Consulting Provider: Austen Sidhu Consult Reason/Comments: Medical management Do you want consulting provider notified?: Yes Primary care physician: Uriel Pendleton Hospital Course: Is a 67-year-old male underwent laparoscopic Nirmal fundal plication. Patient did well postoperative. He did develop some urinary retention heart fully catheter placement at nighttime. The patient will have his Bajwa catheter removed today and if he voids he'll be discharged home. Procedures: Laparoscopic Nirmal fundal plication Patient Condition at Discharge: Good Plan - Discharge Summary Discharge Rx Participant: No New Discharge Prescriptions: New Docusate [Colace] 100 mg PO BID #20 capsule Ibuprofen [Motrin] 600 mg PO Q6HR PRN #40 tab PRN Reason: Pain oxyCODONE HCL [OxyIR] 5 mg PO Q6H PRN 3 Days #10 tab PRN Reason: Pain Acetaminophen Tab [Tylenol] 650 mg PO Q6H #30 tab No Action Lansoprazole 30 mg PO QAM Multivit-Min/FA/Lycopen/Lutein [Centrum Silver Men Tablet] 1 tab PO DAILY Fluticasone/Umeclidin/Vilanter [Trelegy Ellipta 200-62.5-25] 1 puff INHALATION QAM Fexofenadine HCl [Kimberly Allergy] 180 mg PO DAILY Cholecalciferol [Vitamin D3 (25 Mcg = 1000 Iu)] 25 mcg PO DAILY [place]-3/Dha/Epa/Fish Oil [Fish Oil 1,000 mg Softgel] 1 each PO DAILY Discharge Medication List Lansoprazole 30 mg PO QAM 10/12/14 [History] Fluticasone/Umeclidin/Vilanter [Trelegy Ellipta 200-62.5-25] 1 puff INHALATION QAM 05/12/22 [History] Multivit-Min/FA/Lycopen/Lutein [Centrum Silver Men Tablet] 1 tab PO DAILY 05/12/22 [History] Cholecalciferol [Vitamin D3 (25 Mcg = 1000 Iu)] 25 mcg PO DAILY 07/09/22 [History] Fexofenadine HCl [Kimberly Allergy] 180 mg PO DAILY 07/09/22 [History] [place]-3/Dha/Epa/Fish Oil [Fish Oil 1,000 mg Softgel] 1 each PO DAILY 07/09/22 [History] Acetaminophen Tab [Tylenol] 650 mg PO Q6H #30 tab 08/01/22 [Rx] Docusate [Colace] 100 mg PO BID #20 capsule 08/01/22 [Rx] Ibuprofen [Motrin] 600 mg PO Q6HR PRN #40 tab 08/01/22 [Rx] oxyCODONE HCL [OxyIR] 5 mg PO Q6H PRN 3 Days #10 tab 08/01/22 [Rx] Follow up Appointment(s)/Referral(s): Murphy Miner MD [STAFF PHYSICIAN] - 1 Week Discharge Disposition: HOME SELF-CARE
[2022-08-02] MEDS: KETOROLAC 15 MG/ML 1 ML VIAL IVP SCH (06:14)
[2022-08-02 07:33] VITALS: BP 134/89; PULSE 77; RESP 18; TEMP 98.2
[2022-08-02] MEDS: IPRATROPIUM 0.5 MG/2.5 ML NEBU INHALATION SCH ×2 (08:01→10:54)
[2022-08-02] MEDS: SYMBICORT 80-4.5 MCG INHALER INHALATION SCH (08:01)
[2022-08-02] MEDS: VIT A,C & E-LUTEIN-MINERALS 1 EACH TAB PO SCH (08:38)
[2022-08-02] MEDS: PANTOPRAZOLE 40 MG TABLET PO SCH (08:38)
[2022-08-02] MEDS: ENOXAPARIN 40 MG/0.4 ML SYRINGE SQ SCH (08:38)
[2022-08-02] MEDS: CHOLECALCIFEROL 25 MCG (1000 IU) TABLET PO SCH (08:38)
--- NOTE | 2022-08-02 10:57 | P.CONS ---
History of Present Illness - Reason for Consult Consult date: 07/31/22 Past Medical History Past Medical History: COPD, GERD/Reflux, Osteoarthritis (OA) Additional Past Medical History / Comment(s): NUMEROUS BOWEL OBSTRUCTIONS-most recent 2021-tx. medically, ileus, diverticular disease, hx asbestos exposure. HX OF POLYPS, hiatal hernia History of Any Multi-Drug Resistant Organisms: None Reported Past Surgical History: Appendectomy, Back Surgery, Bowel Resection, Cholecystectomy, Joint Replacement, Orthopedic Surgery, Tonsillectomy Additional Past Surgical History / Comment(s): COLONOSCOPY, EGD, BOWEL RESECTIONS IN 2012- LYSIS OF ADHESIONS-05/09/14, had spinal stenosis, had fusion done, R knee arthroscopy for torn meniscus. Total L knee 2017. Past Anesthesia/Blood Transfusion Reactions: No Reported Reaction Past Psychological History: No Psychological Hx Reported Smoking Status: Former smoker Past Alcohol Use History: Occasional Additional Past Alcohol Use History / Comment(s): started smoking at age 12 worked up to 3 ppd, quit 1997 Past Drug Use History: None Reported - Past Family History Father Family Medical History: Cancer Additional Family Medical History / Comment(s): at age 64- colon cancer Mother Family Medical History: Hyperlipidemia, Hypertension Additional Family Medical History / Comment(s): Mother at age 78 Medications and Allergies Home Medications Medication Instructions Recorded Confirmed Type Lansoprazole 30 mg PO QAM 10/12/14 07/31/22 History Fluticasone/Umeclidin/Vilanter 1 puff INHALATION QAM 05/12/22 07/31/22 History [Trelegy Ellipta 200-62.5-25] Multivit-Min/FA/Lycopen/Lutein 1 tab PO DAILY 05/12/22 07/31/22 History [Centrum Silver Men Tablet] Cholecalciferol [Vitamin D3 (25 25 mcg PO DAILY 07/09/22 07/31/22 History Mcg = 1000 Iu)] Fexofenadine HCl [Kimberly Allergy] 180 mg PO DAILY 07/09/22 07/31/22 History [place]-3/Dha/Epa/Fish Oil [Fish Oil 1 each PO DAILY 07/09/22 07/31/22 History 1,000 mg Softgel] Acetaminophen Tab [Tylenol] 650 mg PO Q6H #30 tab 08/01/22 Rx Docusate [Colace] 100 mg PO BID #20 capsule 08/01/22 Rx Ibuprofen [Motrin] 600 mg PO Q6HR PRN #40 tab 08/01/22 Rx oxyCODONE HCL [OxyIR] 5 mg PO Q6H PRN 3 Days #10 tab 08/01/22 Rx Allergies Allergy/AdvReac Type Severity Reaction Status Date / Time No Known Allergies Allergy Verified 07/31/22 08:40 Physical Exam Vitals: Vital Signs Temp Pulse Pulse Resp BP Pulse Ox FiO2 08/01/22 09:24 94 L 21 08/01/22 07:47 98.3 F 64 16 131/77 93 L 08/01/22 01:34 98.3 F 77 15 126/79 95 07/31/22 20:00 97.8 F 60 18 115/74 07/31/22 15:44 76 16 124/72 07/31/22 15:00 61 19 134/67 97 07/31/22 14:30 62 18 96 07/31/22 13:57 56 L 18 124/69 97 07/31/22 13:42 76 18 117/62 96 Intake and Output 07/31/22 08/01/22 08/01/22 22:59 06:59 14:59 Intake Total 245 Output Total 2550 850 Balance 245 -2550 -850 Intake: Intake, IV Titration 125 Amount Lactated Ringers 1,000 ml 125 @ 125 mls/hr IV .Q8H ONE Rx#:[id number] Oral 120 Output: Urine 1850 850 Straight 850 Uretheral (Bajwa) 850 Post Void Residual 700 Other: Voiding Method Toilet Indwelling Catheter Results CBC & Chem 7: 08/01/22 05:23 08/01/22 05:23 Labs: Abnormal Lab Results - Last 24 Hours (Table) 08/01/22 08/01/22 Range/Units 05:23 05:23 WBC 13.70 H (4.50-10.00) X 10*3/uL MCHC 31.8 L (32.0-37.0) g/dL Immature Gran # 0.05 H (0.00-0.04) X 10*3/uL Neutrophils # 10.63 H (1.80-7.70) X 10*3/uL Monocytes # 1.05 H (0.20-1.00) X 10*3/uL Eosinophils # 0.03 L (0.04-0.35) X 10*3/uL Anion Gap 8.80 L (10.00-18.00) mmol/L
--- NOTE | 2022-08-02 11:18 | P.PN ---
Progress Note - Text Progress Note Date: 08/02/22 Patient's discharge home yesterday was canceled due to urinary retention. Patient's Bajwa catheter placed. He'll be evaluating by urology today. Patient has no issues eating. On exam vital signs are stable. Abdomen is soft. Incision sites are clean dry intact. Status post laparoscopic repair of hiatal hernia. Patient will be discharged home once he is cleared by urology.
--- NOTE | 2022-08-02 11:55 | P.GSCN ---
History of Present Illness Consult date: 08/02/22 Reason for Consult: Urinary retention History of present illness: This is 67-year-old male that underwent a Nirmal fundoplication on July [address] Trujillo [facility] is consulted for urinary retention. His Bajwa catheter was removed on 08/01, patient was unable to void and subsequently Bajwa catheter has been reinserted. Patient is also been started on Flomax. Denies any voiding dysfunction at baseline. No previous history of urinary retention. Denies any dysuria or gross hematuria. Past Medical History Past Medical History: COPD, GERD/Reflux, Osteoarthritis (OA) Additional Past Medical History / Comment(s): NUMEROUS BOWEL OBSTRUCTIONS-most recent 2021-tx. medically, ileus, diverticular disease, hx asbestos exposure. HX OF POLYPS, hiatal hernia History of Any Multi-Drug Resistant Organisms: None Reported Past Surgical History: Appendectomy, Back Surgery, Bowel Resection, Cholecystectomy, Joint Replacement, Orthopedic Surgery, Tonsillectomy Additional Past Surgical History / Comment(s): COLONOSCOPY, EGD, BOWEL RESECTIONS IN 2012- LYSIS OF ADHESIONS-05/09/14, had spinal stenosis, had fusion done, R knee arthroscopy for torn meniscus. Total L knee 2017. Past Anesthesia/Blood Transfusion Reactions: No Reported Reaction Past Psychological History: No Psychological Hx Reported Smoking Status: Former smoker Past Alcohol Use History: Occasional Additional Past Alcohol Use History / Comment(s): started smoking at age 12 worked up to 3 ppd, quit 1997 Past Drug Use History: None Reported - Past Family History Father Family Medical History: Cancer Additional Family Medical History / Comment(s): at age 64- colon cancer Mother Family Medical History: Hyperlipidemia, Hypertension Additional Family Medical History / Comment(s): Mother at age 78 Medications and Allergies Home Medications Medication Instructions Recorded Confirmed Type Lansoprazole 30 mg PO QAM 10/12/14 07/31/22 History Fluticasone/Umeclidin/Vilanter 1 puff INHALATION QAM 05/12/22 07/31/22 History [Trelegy Ellipta 200-62.5-25] Multivit-Min/FA/Lycopen/Lutein 1 tab PO DAILY 05/12/22 07/31/22 History [Centrum Silver Men Tablet] Cholecalciferol [Vitamin D3 (25 25 mcg PO DAILY 07/09/22 07/31/22 History Mcg = 1000 Iu)] Fexofenadine HCl [Kimberly Allergy] 180 mg PO DAILY 07/09/22 07/31/22 History [place]-3/Dha/Epa/Fish Oil [Fish Oil 1 each PO DAILY 07/09/22 07/31/22 History 1,000 mg Softgel] Acetaminophen Tab [Tylenol] 650 mg PO Q6H #30 tab 08/01/22 Rx Docusate [Colace] 100 mg PO BID #20 capsule 08/01/22 Rx Ibuprofen [Motrin] 600 mg PO Q6HR PRN #40 tab 08/01/22 Rx oxyCODONE HCL [OxyIR] 5 mg PO Q6H PRN 3 Days #10 tab 08/01/22 Rx Allergies Allergy/AdvReac Type Severity Reaction Status Date / Time No Known Allergies Allergy Verified 07/31/22 08:40 Surgical - Exam Vital Signs Temp Pulse Resp BP Pulse Ox 97.5 F L 70 16 118/71 95 07/31/22 09:06 07/31/22 09:06 07/31/22 09:06 07/31/22 09:06 07/31/22 09:06 - General no distress, no pain - Eyes normal ocular movement, no pale - ENT normal nares, normal mucosa - Respiratory normal expansion, normal respiratory effort - Abdomen Abdomen: soft, non tender - Psychiatric oriented to time, oriented to person, oriented to place Results - Labs 08/01/22 05:23 08/01/22 05:23 Assessment and Plan Assessment: 67-year-old male with postoperative urinary retention. Discussed retention secondary to his recent surgery, anesthesia, pain medication. At this time recommend discharge home with a Bajwa catheter. -Continue Flomax -Can be discharged with the Bajwa catheter, follow up in 1 week for a trial of void. Patient was advised to remove his catheter 6 hours prior to his follow-up
== END 2022-08-02 14:27 | disposition home or self-care (01) ==
LOC: OR 07:56 → 5NMEDONC 11:23 → OR 08-02 14:27
PROVIDERS: ATTEND Surgery
DX: K21.9 Gastro-esophageal reflux disease without esophagitis (principal); K44.9 Diaphragmatic hernia without obstruction or gangrene; J44.9 Chronic obstructive pulmonary disease, unspecified; Z87.19 Personal history of other diseases of the digestive system; Z86.010 Personal history of colon polyps; M19.90 Unspecified osteoarthritis, unspecified site; Z98.1 Arthrodesis status; Z90.49 Acquired absence of other specified parts of digestive tract; Z96.652 Presence of left artificial knee joint; Z98.890 Other specified postprocedural states; Z80.0 Family history of malignant neoplasm of digestive organs; Z82.49 Family history of ischemic heart disease and other diseases of the circulatory system; Z87.891 Personal history of nicotine dependence; Z79.2 Long term (current) use of antibiotics; Z79.51 Long term (current) use of inhaled steroids; Z79.899 Other long term (current) drug therapy
CPT/HCPCS: 43280; 94760 ×2; 80048; 85025; J1100; J0690; J2405; J1650 ×2; J1170 ×2; J1885 ×3; J1644

== ENCOUNTER 2022-08-17 03:50 | Emergency (ER) | payer BC, MEDICARE ==
--- NOTE | 2022-08-17 04:36 | ED ---
Abdominal Pain HPI - General Chief Complaint: Abdominal Pain Stated Complaint: Abdominal Pain, Possible Bowel Obstruction Time Seen by Provider: 08/17/22 04:06 Source: patient Mode of arrival: ambulatory Limitations: no limitations - History of Present Illness Initial Comments: This patient is a 67-year-old man who presents with upper abdominal pain which had started Wednesday night, going on over 30 hours now. The patient states the pain is burning and also fullness. There is been some nausea. He was having bowel movements but then notes that he stopped passing gas this morning and was concerned about developing an obstruction. Of note he had a Nirmal fundoplication little over [address] Miner. He has not noted fever or chills. No change in urination. MD Complaint: abdominal pain Onset/Timin -: hour(s) Location: epigastric Radiation: none Migration to: no migration Severity: moderate Quality: burning Consistency: constant Improves With: nothing Worsens With: nothing Associated Symptoms: nausea - Related Data Home Medications Medication Instructions Recorded Confirmed Lansoprazole 30 mg PO QAM 10/12/14 07/31/22 Fluticasone/Umeclidin/Vilanter 1 puff INHALATION QAM 05/12/22 07/31/22 [Trelegy Ellipta 200-62.5-25] Multivit-Min/FA/Lycopen/Lutein 1 tab PO DAILY 05/12/22 07/31/22 [Centrum Silver Men Tablet] Cholecalciferol [Vitamin D3 (25 25 mcg PO DAILY 07/09/22 07/31/22 Mcg = 1000 Iu)] Fexofenadine HCl [Kimberly Allergy] 180 mg PO DAILY 07/09/22 07/31/22 [place]-3/Dha/Epa/Fish Oil [Fish Oil 1 each PO DAILY 07/09/22 07/31/22 1,000 mg Softgel] Previous Rx's Medication Instructions Recorded Acetaminophen Tab [Tylenol] 650 mg PO Q6H #30 tab 08/01/22 Docusate [Colace] 100 mg PO BID #20 capsule 08/01/22 Ibuprofen [Motrin] 600 mg PO Q6HR PRN #40 tab 08/01/22 oxyCODONE HCL [OxyIR] 5 mg PO Q6H PRN 3 Days #10 tab 08/01/22 Tamsulosin [Flomax] 0.4 mg PO DAILY #30 cap 08/02/22 Allergies Allergy/AdvReac Type Severity Reaction Status Date / Time No Known Allergies Allergy Verified 08/17/22 03:54 Review of Systems ROS Statement: Those systems with pertinent positive or pertinent negative responses have been documented in the HPI. ROS Other: All systems not noted in ROS Statement are negative. Constitutional: Denies: fever, chills Respiratory: Denies: cough, dyspnea Cardiovascular: Denies: chest pain, palpitations, edema Gastrointestinal: Reports: abdominal pain, nausea, constipation. Denies: vomiting, diarrhea, melena, hematochezia Genitourinary: Denies: dysuria, hematuria Musculoskeletal: Denies: back pain Skin: Denies: rash Neurological: Denies: headache, weakness Past Medical History Past Medical History: COPD, GERD/Reflux, Osteoarthritis (OA) Additional Past Medical History / Comment(s): NUMEROUS BOWEL OBSTRUCTIONS-most recent 2021-tx. medically, ileus, diverticular disease, hx asbestos exposure. HX OF POLYPS, hiatal hernia History of Any Multi-Drug Resistant Organisms: None Reported Past Surgical History: Appendectomy, Back Surgery, Bowel Resection, Cholecystectomy, Joint Replacement, Orthopedic Surgery, Tonsillectomy Additional Past Surgical History / Comment(s): COLONOSCOPY, EGD, BOWEL RESECTIONS IN 2012- LYSIS OF ADHESIONS-05/09/14, had spinal stenosis, had fusion done, R knee arthroscopy for torn meniscus. Total L knee 2017. Past Anesthesia/Blood Transfusion Reactions: No Reported Reaction Past Psychological History: No Psychological Hx Reported Smoking Status: Former smoker Past Alcohol Use History: Occasional Past Drug Use History: None Reported - Past Family History Father Family Medical History: Cancer Additional Family Medical History / Comment(s): at age 64- colon cancer Mother Family Medical History: Hyperlipidemia, Hypertension Additional Family Medical History / Comment(s): Mother at age 78 General Exam Limitations: no limitations General appearance: alert, in no apparent distress Head exam: Present: atraumatic, normocephalic Eye exam: Present: normal appearance. Absent: scleral icterus, conjunctival injection Neck exam: Present: normal inspection Respiratory exam: Present: normal lung sounds bilaterally. Absent: respiratory distress, wheezes, rales, rhonchi, stridor Cardiovascular Exam: Present: regular rate, normal rhythm, normal heart sounds. Absent: systolic murmur, diastolic murmur, rubs, gallop GI/Abdominal exam: Present: soft. Absent: distended, tenderness, guarding, rebound, rigid, mass, pulsatile mass, hernia Extremities exam: Present: normal inspection, normal capillary refill. Absent: pedal edema, calf tenderness Back exam: Present: normal inspection Neurological exam: Present: alert Skin exam: Present: warm, dry, intact, normal color. Absent: rash Course Vital Signs 08/17/22 08/17/22 03:54 08:33 Temperature 97.4 F L 97.7 F Pulse Rate 69 62 Respiratory 16 19 Rate Blood Pressure 167/88 124/76 O2 Sat by Pulse 98 98 Oximetry Medical Decision Making - Medical Decision Making This patient is 67-year-old man here with abdominal pain. He is found to have urinary retention and Bajwa catheter is placed which did drain moderate amount of urine and give relief from the patient's symptoms. Given that the patient is postsurgical, I did discuss the case with Dr. Diaz who saw the patient in the morning on his way to round on his other inpatients. Dr. Rosenthal feels patient stable to continue to home and follow-up in the clinic. Patient also given follow-up instructions for urology related to the urinary retention. Was pt. sent in by a medical professional or institution (, PA, COOKING INSTRUCTOR, urgent care, hospital, or longterm...) When possible be specific @ -[No] Did you speak to anyone other than the patient for history (EMS, parent, family, police, friend...)? What history was obtained from this source @ -[No] Did you review nursing and triage notes (agree or disagree)? Why? @ -[I reviewed and agree with nursing and triage notes] Were old charts reviewed (outside hosp., previous admission, EMS record, old EKG, old radiological studies, urgent care reports/EKG's, longterm records)? Report findings @ -[No old charts were reviewed] Differential Diagnosis (chest pain, altered mental status, abdominal pain women, abdominal pain men, vaginal bleeding, weakness, fever, dyspnea, syncope, headache, dizziness, GI bleed, back pain, seizure, CVA, palpatations, mental health, musculoskeletal)? @ -[Differential Abdominal Pain Men: Appendicitis, cholecystitis, diverticulosis, ischemic bowel, pancreatitis, hepatitis, UTI, gastroenteritis, AAA, incarcerated hernia, bowel obstruction, constipation, inflammatory bowel, hepatitis, peptic ulcer disease, splenic infarction, perforated viscus, testicular torsion, this is not meant to be an all-inclusive list EKG interpreted by me (3pts min.). @ -[] X-rays interpreted by me (1pt min.). @ -[None done] CT interpreted by me (1pt min.). @ -[None done] U/S interpreted by me (1pt. min.). @ -[None done] What testing was considered but not performed or refused? (CT, X-rays, U/S, labs)? Why? @ -[None] What meds were considered but not given or refused? Why? @ -[None] Did you discuss the management of the patient with other professionals (professionals i.e. , PA, COOKING INSTRUCTOR, lab, RT, psych nurse, social worker health services, radio interference expert, teacher, quarantine officer, binder caser)? Give summary @ -[No] Was smoking cessation discussed for >3mins.? @ -[No] Was critical care preformed (if so, how long)? @ -[No] Were there social determinants of health that impacted care today? How? (Homelessness, low income, unemployed, alcoholism, drug addiction, transportation, low edu. Level, literacy, decrease access to med. care, care home, rehab)? @ -[No] Was there de-escalation of care discussed even if they declined (Discuss DNR or withdrawal of care, Hospice)? DNR status @ -[No] What co-morbidities impacted this encounter? (DM, HTN, Smoking, COPD, CAD, Cancer, CVA, ARF, Chemo, Hep., AIDS, mental health diagnosis, sleep apnea, morbid obesity)? @ -[None] Was patient admitted / discharged? Hospital course, mention meds given and route, prescriptions, significant lab abnormalities, going to OR and other pertinent info. @ -[Discharged Undiagnosed new problem with uncertain prognosis? @ -[No] Drug Therapy requiring intensive monitoring for toxicity (Heparin, Nitro, Insulin, Cardizem)? @ -[No] Were any procedures done? @ -[No] Diagnosis/symptom? @ -[ Acute urinary retention Acute abdominal pain secondary to urinary retention Acute, or Chronic, or Acute on Chronic? @ -[default] Uncomplicated (without systemic symptoms) or Complicated (systemic symptoms)? @ -[Uncomplicated Side effects of treatment? @ -[No] Exacerbation, Progression, or Severe Exacerbation? @ -[No] Poses a threat to life or bodily function? How? (Chest pain, USA, SC, pneumonia, PE, COPD, DKA, ARF, appy, cholecystitis, CVA, Diverticulitis, Homicidal, Suicidal, threat to staff... and all critical care pts) @ -[No] - Lab Data Result diagrams: 08/17/22 04:35 08/17/22 04:35 Lab Results 08/17/22 08/17/22 08/17/22 Range/Units 04:35 04:35 06:47 WBC 8.0 (3.8-10.6) k/uL RBC 4.66 (4.30-5.90) m/uL Hgb 14.4 (13.0-17.5) gm/dL Hct 42.4 (39.0-53.0) % MCV 91.0 (80.0-100.0) fL MCH 31.0 (25.0-35.0) pg MCHC 34.1 (31.0-37.0) g/dL RDW 13.6 (11.5-15.5) % Plt Count 366 (150-450) k/uL MPV 8.8 Neutrophils % 68 % Lymphocytes % 21 % Monocytes % 5 % Eosinophils % 3 % Basophils % 1 % Neutrophils # 5.4 (1.3-7.7) k/uL Lymphocytes # 1.7 (1.0-4.8) k/uL Monocytes # 0.4 (0-1.0) k/uL Eosinophils # 0.2 (0-0.7) k/uL Basophils # 0.1 (0-0.2) k/uL Sodium 140 (137-145) mmol/L Potassium 4.1 (3.5-5.1) mmol/L Chloride 106 (98-107) mmol/L Carbon Dioxide 26 (22-30) mmol/L Anion Gap 8 mmol/L BUN 7 L (9-20) mg/dL Creatinine 0.65 L (0.66-1.25) mg/dL Est GFR (CKD-EPI)AfAm >90 (>60 ml/min/1.73 sqM) Est GFR (CKD-EPI)NonAf >90 (>60 ml/min/1.73 sqM) Glucose 91 (74-99) mg/dL Calcium 9.0 (8.4-10.2) mg/dL Total Bilirubin 0.4 (0.2-1.3) mg/dL AST 24 (17-59) U/L ALT 24 (4-49) U/L Alkaline Phosphatase 57 (38-126) U/L Total Protein 6.5 (6.3-8.2) g/dL Albumin 3.7 (3.5-5.0) g/dL Amylase 64 (30-110) U/L Lipase 182 (23-300) U/L Urine Color Light Yellow Urine Appearance Clear (Clear) Urine pH 6.5 (5.0-8.0) Ur Specific [place] 1.006 (1.001-1.035) Urine Protein Negative (Negative) Urine Glucose (UA) Negative (Negative) Urine Ketones Negative (Negative) Urine Blood Negative (Negative) Urine Nitrite Negative (Negative) Urine Bilirubin Negative (Negative) Urine Urobilinogen <2.0 (<2.0) mg/dL Ur Leukocyte Esterase Negative (Negative) Disposition Clinical Impression: Abdominal pain, Urinary retention Disposition: HOME SELF-CARE Condition: Good Instructions (If sedation given, give patient instructions): Urinary Retention in Men (ED), Abdominal Pain (ED) Is patient prescribed a controlled substance at d/c from ED?: No Referrals: Uriel Pendleton MD [Primary Care Provider] - 1-2 days Sarkis Givens MD [STAFF PHYSICIAN] - 1-2 days Murphy Miner MD [STAFF PHYSICIAN] - 1-2 days
[2022-08-17 04:49] LABS: Basophils # (A) 0.1 k/uL (0-0.2); Basophils % (A) 1 %; Eosinophils # (A) 0.2 k/uL (0-0.7); Eosinophils % (A) 3 %; HCT 42.4 % (39.0-53.0); HGB 14.4 gm/dL (13.0-17.5); Lymphocytes # (A) 1.7 k/uL (1.0-4.8); Lymphocytes % (A) 21 %; MCHC 34.1 g/dL (31.0-37.0); Mean Platelet Volume 8.8; Monocytes # (A) 0.4 k/uL (0-1.0); Monocytes % (A) 5 %; Neutrophils # (A) 5.4 k/uL (1.3-7.7); Neutrophils % (A) 68 %; Platelet Count 366 k/uL (150-450); RBC 4.66 m/uL (4.30-5.90); RDW 13.6 % (11.5-15.5)
[2022-08-17 05:01] LABS: ALT 24 U/L (4-49); AST 24 U/L (17-59); African American GFR (CKD) >90 (>60 ml/min/1.73 sqM); Albumin 3.7 g/dL (3.5-5.0); Alkaline Phosphatase 57 U/L (38-126); Amylase 64 U/L (30-110); Blood Urea Nitrogen 7 mg/dL (9-20); Carbon Dioxide 26 mmol/L (22-30); Chloride 106 mmol/L (98-107); Glucose 91 mg/dL (74-99); Lipase 182 U/L (23-300); Non-African American GFR(CKD) >90 (>60 ml/min/1.73 sqM); Total Bilirubin 0.4 mg/dL (0.2-1.3); Total Protein 6.5 g/dL (6.3-8.2)
[2022-08-17 05:53] LABS: Anion Gap 8 mmol/L; Potassium 4.1 mmol/L (3.5-5.1); Sodium 140 mmol/L (137-145)
[2022-08-17 07:08] LABS: Appearance,Urine Clear (Clear); Bilirubin,Urine Negative (Negative); Blood,Urine Negative (Negative); Color,Urine Light Yellow; Glucose,Urine (UA) Negative (Negative); Ketones,Urine Negative (Negative); Leukocyte Esterase,Urine Negative (Negative); Nitrite,Urine Negative (Negative); PH, Urine 6.5 (5.0-8.0); Protein,Urine Negative (Negative); Specific Gravity,Urine 1.006 (1.001-1.035); Urobilinogen,Urine <2.0 mg/dL (<2.0)
--- NOTE | 2022-08-17 07:13 | CT ---
ADDENDUM - Added by Malik Reinoso MD on 08/17/2022 7:16 AM (-04:00) Findings discussed with provider. Pneumomediastinum and thickening of the esophagus extending to the gastroesophageal junction likely relates to recent Nirmal fundoplication changes. EXAM: CT Abdomen and Pelvis Without Intravenous Contrast CLINICAL HISTORY: ITS.REASON CT Reason: abdominal pain TECHNIQUE: Axial computed tomography images of the abdomen and pelvis without intravenous contrast. CTDI is 11.87 mGy and DLP is 613.4 mGy-cm. This CT exam was performed using one or more of the following dose reduction techniques: automated exposure control, adjustment of the mA and/or kV according to patient size, and/or use of iterative reconstruction technique. COMPARISON: No relevant prior studies available. FINDINGS: Limitations: Limited evaluation in the absence of contrast. Lung bases: Dependent airspace disease with bronchiectasis. Findings may be due to sequelae of chronic infection/aspiration. Pleural space: Dense left pleural calcifications. Findings may be due to sequelae of prior hemorrhage. Asbestos-related disease also possible. Mediastinum: Partially visualized pneumomediastinum. Findings may be due to esophageal perforation. Additional mild esophageal thickening noted. Recommend dedicated imaging of the chest. ABDOMEN: Liver: Unremarkable. Gallbladder and bile ducts: Cholecystectomy changes. No ductal dilation. Pancreas: Unremarkable. No ductal dilation. Spleen: Unremarkable. No splenomegaly. Adrenals: Unremarkable. No mass. Kidneys and ureters: Unremarkable. No evidence of radiopaque renal calculi or signs of collecting system dilatation. Stomach and bowel: Colonic diverticulosis. No evidence of diverticulitis. No obstruction. PELVIS: Appendix: No findings to suggest acute appendicitis. Bladder: Bajwa within the bladder. Mild distention for the bladder, somewhat increased given Bajwa. Consider Bajwa interrogation if there is further concern. No stones. Reproductive: Unremarkable as visualized. ABDOMEN and PELVIS: Intraperitoneal space: No free fluid or air. Bones/joints: No acute fracture. No dislocation. Soft tissues: Unremarkable. Vasculature: Atherosclerotic disease. No abdominal aortic aneurysm. Lymph nodes: Unremarkable. No enlarged lymph nodes. IMPRESSION: 1. Limited evaluation in the absence of contrast. 2. Dense left pleural calcifications. Findings may be due to sequelae of prior hemorrhage. Asbestos-related disease also possible. 3. No evidence of radiopaque renal calculi or signs of collecting system dilatation. 4. Partially visualized pneumomediastinum. Findings may be due to esophageal perforation. Additional mild esophageal thickening noted. Recommend dedicated imaging of the chest. 5. Dependent airspace disease with bronchiectasis. Findings may be due to sequelae of chronic infection/aspiration. 6. Bajwa within the bladder. Mild distention for the bladder, somewhat increased given Bajwa. Consider Bajwa interrogation if there is further concern. 7. Other incidental findings as described. <MYCVCSECTION> Communications: 08/17/22 07:16 Call Doctor Regarding Above results, called Dr. Fan on 08/17 07:15 (-04:00)
[2022-08-17 08:35] VITALS: BP 124/76; PULSE 62; RESP 19; TEMP 97.7
--- NOTE | 2022-08-18 15:28 | P.GSCN ---
History of Present Illness Consult date: 08/17/22 Reason for Consult: abdominal pain History of present illness: this is a 67-year-old male well-known to myself. [facility]. Patient was found to have urinary retention. Patient had a Bajwa catheter placed and had his pain resolved. Patient is a previous history of small bowel obstruction related to adhesions. He currently denies any nausea or vomiting. Past Medical History Past Medical History: COPD, GERD/Reflux, Osteoarthritis (OA) Additional Past Medical History / Comment(s): NUMEROUS BOWEL OBSTRUCTIONS-most recent 2021-tx. medically, ileus, diverticular disease, hx asbestos exposure. HX OF POLYPS, hiatal hernia History of Any Multi-Drug Resistant Organisms: None Reported Past Surgical History: Appendectomy, Back Surgery, Bowel Resection, Cholecystectomy, Joint Replacement, Orthopedic Surgery, Tonsillectomy Additional Past Surgical History / Comment(s): COLONOSCOPY, EGD, BOWEL RESECTIONS IN 2012- LYSIS OF ADHESIONS-05/09/14, had spinal stenosis, had fusion done, R knee arthroscopy for torn meniscus. Total L knee 2017. Past Anesthesia/Blood Transfusion Reactions: No Reported Reaction Past Psychological History: No Psychological Hx Reported Smoking Status: Former smoker Past Alcohol Use History: Occasional Past Drug Use History: None Reported - Past Family History Father Family Medical History: Cancer Additional Family Medical History / Comment(s): at age 64- colon cancer Mother Family Medical History: Hyperlipidemia, Hypertension Additional Family Medical History / Comment(s): Mother at age 78 Medications and Allergies Home Medications Medication Instructions Recorded Confirmed Type Lansoprazole 30 mg PO QAM 10/12/14 07/31/22 History Fluticasone/Umeclidin/Vilanter 1 puff INHALATION QAM 05/12/22 07/31/22 History [Trelegy Ellipta 200-62.5-25] Multivit-Min/FA/Lycopen/Lutein 1 tab PO DAILY 05/12/22 07/31/22 History [Centrum Silver Men Tablet] Cholecalciferol [Vitamin D3 (25 25 mcg PO DAILY 07/09/22 07/31/22 History Mcg = 1000 Iu)] Fexofenadine HCl [Kimberly Allergy] 180 mg PO DAILY 07/09/22 07/31/22 History [place]-3/Dha/Epa/Fish Oil [Fish Oil 1 each PO DAILY 07/09/22 07/31/22 History 1,000 mg Softgel] Acetaminophen Tab [Tylenol] 650 mg PO Q6H #30 tab 08/01/22 Rx Docusate [Colace] 100 mg PO BID #20 capsule 08/01/22 Rx Ibuprofen [Motrin] 600 mg PO Q6HR PRN #40 tab 08/01/22 Rx oxyCODONE HCL [OxyIR] 5 mg PO Q6H PRN 3 Days #10 tab 08/01/22 Rx Tamsulosin [Flomax] 0.4 mg PO DAILY #30 cap 08/02/22 Rx Allergies Allergy/AdvReac Type Severity Reaction Status Date / Time No Known Allergies Allergy Verified 08/17/22 03:54 Surgical - Exam Vital Signs Temp Pulse Resp BP Pulse Ox 97.4 F L 69 16 167/88 98 08/17/22 03:54 08/17/22 03:54 08/17/22 03:54 08/17/22 03:54 08/17/22 03:54 - General well developed, well nourished, no distress - Eyes PERRL - ENT normal pinna - Neck no masses - Respiratory normal expansion - Cardiovascular Rhythm: regular - Abdomen Abdomen: soft, non tender Results - Labs 08/17/22 04:35 08/17/22 04:35 Assessment and Plan Assessment: Acute abdominal pain related to urinary retention. Patient will keep his Bajwa catheter and be discharged home with Bajwa catheter. He will follow-up w [facility] urology.
== END 2022-08-17 08:35 | disposition home or self-care (01) ==
LOC: EC 03:50
DX: R10.13 Epigastric pain (principal); R33.9 Retention of urine, unspecified; K21.9 Gastro-esophageal reflux disease without esophagitis; J44.9 Chronic obstructive pulmonary disease, unspecified; M19.90 Unspecified osteoarthritis, unspecified site; Z79.1 Long term (current) use of non-steroidal anti-inflammatories (NSAID); Z79.899 Other long term (current) drug therapy; Z87.891 Personal history of nicotine dependence
CPT/HCPCS: 36415; 51702; 51798; 74176; 80053; 81003; 82150; 83690; 85025; 99284

== ENCOUNTER → 2023-03-24 | Outpatient (CLI) | payer BC, MEDICARE ==
--- NOTE | 2023-03-24 15:57 | US ---
EXAMINATION TYPE: US carotid duplex BILAT DATE OF EXAM: 03/24/2023 COMPARISON: NONE CLINICAL INDICATION: Male, 67 years old with history of R55 SYNCOPE AND COLLAPSE; TECHNIQUE: Carotid duplex ultrasound examination. Indirect Doppler criteria was utilized. FINDINGS: EXAM MEASUREMENTS: RIGHT: Peak Systolic Velocity (PSV) cm/sec ----- Right CCA: 92.4 ----- Right ICA: 82.3 ----- Right ECA: 101.7 ICA/CCA ratio: 0.9 RIGHT: End Diastole cm/sec ----- Right CCA: 28.5 ----- Right ICA: 26.7 ----- Right ECA: 17.6 LEFT: Peak Systolic Velocity (PSV) cm/sec ----- Left CCA: 88.8 ----- Left ICA: 81.0 ----- Left ECA: 99.1 ICA/CCA ratio: 0.9 LEFT: End Diastole cm/sec ----- Left CCA: 31.8 ----- Left ICA: 31.8 ----- Left ECA: 17.6 VERTEBRALS (direction of flow): Right Vertebral: Antegrade Left Vertebral: Antegrade Mild atherosclerotic plaque in both carotid bulbs. SCROLL MACHINE OPERATOR NOTES: No elevated velocities IMPRESSION: No ultrasound evidence for hemodynamically significant stenosis of the bilateral visualized carotid a rterial systems. Criteria for Assigning % of Stenosis / Diameter reduction (Estimation based on the indirect measurements of the internal carotid artery velocities (ICA PSV). 1. Normal (no stenosis)=ICA PSV < 125 cm/s: ratio < 2.0: ICA EDV<40 cm/s. 2. Less than 50% stenosis=ICA PSV < 125 cm/s: ratio < 2.0: ICA EDV<40 cm/s. 3. 50 to 69% stenosis=ICA PSV of 125 to 230 cm/s: ration 2.0 ? 4.0: ICA EDV 40-100 cm/s. 4. Greater than 70% stenosis to near occlusion= ICA PSV > 230 cm/s: ratio > 4.0: ICA EDV > 100 cm/s. 5. Near occlusion= ICA PSV velocities may be low or undetectable: variable ratio and ICA EDV. 6. Total occlusion=unable to detect flow.
--- NOTE | 2023-03-24 18:41 | CA ---
Transthoracic Echo Report Name: Yan Pendleton Age: 67 Gender: M : 1955 Exam Date: 03/24/2023 14:54 Exam Location: [facility] Ht (in): 68 Wt (lb): 170 Ordering Physician: Uriel Pendleton MD Attending/Referring Phys: Uriel Pendleton MD [employer] Lazara Castillo [facility] Procedure CPT: Indications: R55 SYNCOPE AND COLLAPSE Cardiac Hx: Technical Quality: Fair Contrast 1: Total Dose (mL): Contrast 2: Total Dose (mL): MEASUREMENTS (Male / Female) Normal Values 2D ECHO LV Diastolic Diameter PLAX 5.1 cm 4.2 - 5.9 / 3.9 - 5.3 cm LV Systolic Diameter PLAX 3.5 cm IVS Diastolic Thickness 0.9 cm 0.6 - 1.0 / 0.6 - 0.9 cm LVPW Diastolic Thickness 0.9 cm 0.6 - 1.0 / 0.6 - 0.9 cm LV Relative Wall Thickness 0.4 Ascending Aorta Diameter 3.5 cm M-MODE Aortic Root Diameter MM 3.0 cm LA Systolic Diameter MM 4.8 cm LA Ao Ratio MM 1.6 AV Cusp Separation MM 2.5 cm DOPPLER AV Peak Velocity 105.6 cm/s AV Peak Gradient 4.5 mmHg AV Mean Velocity 79.8 cm/s AV Mean Gradient 2.7 mmHg AV Velocity Time Integral 22.1 cm LVOT Peak Velocity 106.1 cm/s LVOT Peak Gradient 4.5 mmHg LVOT Velocity Time Integral 23.1 cm Mitral E Point Velocity 61.6 cm/s Mitral A Point Velocity 80.4 cm/s Mitral E to A Ratio 0.8 MV Deceleration Time 167.8 ms LV E' Lateral Velocity 8.8 cm/s Mitral E to LV E' Lateral Ratio 7.0 LV E' Septal Velocity 8.8 cm/s Mitral E to LV E' Septal Ratio 7.0 TR Peak Velocity 270.5 cm/s TR Peak Gradient 29.3 mmHg Right Atrial Pressure 3.0 mmHg Pulmonary Artery Systolic Pressu 32.3 mmHg Right Ventricular Systolic Press 32.3 mmHg FINDINGS Left Ventricle Left ventricular wall thickness normal. Left ventricular cavity size normal. Normal left ventricular systolic function with no obvious regional wall motion abnormalities. Left ventricular ejection fraction is estimated at 55-60%. Right Ventricle Mild right ventricular dilatation. No pulmonary hypertension. Right Atrium Upper normal right atrial size. Left Atrium Mild left atrial dilatation. Mitral Valve Mitral valve thickened. Mild mitral regurgitation. Aortic Valve Trileaflet aortic valve. No aortic valve stenosis or regurgitation. Tricuspid Valve Structurally normal tricuspid valve. Mild tricuspid regurgitation. Pulmonic Valve Structurally normal pulmonic valve. Trace pulmonic regurgitation. Pericardium No pericardial effusion. Aorta Normal size aortic root and proximal ascending aorta. CONCLUSIONS 1. Normal left ventricle size and systolic function 2. Mild mitral and tricuspid regurgitation Previewed by: Dr. Rhonda Gardner MD (Electronically Signed) Final Date: 24 March 2023 18:40
== END | disposition home or self-care (01) ==
LOC: RADECHMAIN 14:40
PROVIDERS: ATTEND Family Medicine
DX: R55 Syncope and collapse (principal)
CPT/HCPCS: 93306; 93880

== ENCOUNTER → 2024-03-15 | Outpatient (CLI) | payer BC, MEDICARE ==
--- NOTE | 2024-03-15 14:55 | MR ---
EXAMINATION TYPE: MR angio head wo con DATE OF EXAM: 03/15/2024 COMPARISON: None HISTORY: 68-year-old male Family HX of Aneurysms, Z82.49 FAMILY HX OF ISCHEMIC HEART DIS TECHNIQUE: High resolution 3-D time of flight imaging of the [place]. Rotational 3-D reconst ructions generated on a dedicated independent workstation. FINDINGS: Both vertebral and basilar arteries as well as the remainder of the posterior circulation are patent. Small but patent posterior communicating arteries are seen on both sides. The bilateral internal carotid arteries and remainder of the anterior circulation is patent. No aneurysmal change is seen. IMPRESSION: No large vessel intracranial arterial occlusion, significant stenosis, or aneurysmal change is seen. [facility], , 03/15/2024 2:53 PM
== END | disposition home or self-care (01) ==
LOC: RADMRIMAIN 11:05
PROVIDERS: ATTEND Family Medicine
CPT/HCPCS: 70544

== ENCOUNTER → 2024-06-13 | Outpatient (CLI) | payer BC, MEDICARE ==
--- NOTE | 2024-06-13 12:43 | XR ---
EXAMINATION TYPE: XR chest 2V DATE OF EXAM: 06/13/2024 12:25 PM COMPARISON: Chest radiographs from 07/28/2022, CT abdomen pelvis 06/16/2022 TECHNIQUE: XR chest 2V Frontal and lateral views of the chest. CLINICAL INDICATION:Male, 69 years old with history of J44.9 COPD; FINDINGS: Lungs/Pleura: There is no evidence of pleural effusion, focal consolidation, or pneumothorax. Scarri ng within the left lung base redemonstrated. Calcified pleural plaques within the left lung base. Pulmonary vascularity: Unremarkable. Heart/mediastinum: Cardiomediastinal silhouette is prominent in size. Atherosclerotic calcifications are seen in the aorta. Musculoskeletal: No acute osseous pathology. IMPRESSION: 1. No acute cardiopulmonary disease/process. 2. Scarring with calcified pleural plaques within the left lung base. Correlate for prior asbestosis exposure. [facility], , 06/13/2024 12:41 PM
== END | disposition home or self-care (01) ==
LOC: RADXRMAIN 12:15
PROVIDERS: ATTEND Family Medicine
DX: J44.9 Chronic obstructive pulmonary disease, unspecified (principal); J94.8 Other specified pleural conditions; I70.0 Atherosclerosis of aorta
CPT/HCPCS: 71046